=== PATIENT | female | born 1955 | race Caucasian/White ===

== ENCOUNTER 2017-11-27 07:21 | Emergency (ER) | payer SELFPAY ==
[2017-11-27 07:33] VITALS: BP 135/69; PULSE 85; RESP 18; TEMP 36.4; O2SAT 100; BMI 26.2
--- NOTE | 2017-11-27 07:38 | ED_ITS ---
HPI - Wound/Laceration General Chief Complaint: Wound/Laceration Stated Complaint: CUT LEFT HAND BLEEDING Time Seen by Provider: 11/27/17 07:22 Source: patient Mode of arrival: ambulatory Limitations: no limitations History of Present Illness HPI narrative: 62-year-old female with a history of hepatitis C presents with left hand laceration occurring just prior to arrival after she cut herself while washing dishes with a piece of broken glass. No suspected foreign body. Denies numbness or weakness of the extremity. Related Data Home Medications Medication Instructions Recorded Confirmed ASPIRIN (#ASPIR 81) 81 mg PO Q DAY #0 12/15/11 11/27/17 HOMEOPATHIC SUBSTANCE (MILK 1 cap PO Q DAY #0 12/15/11 THISTLE) VITAMIN D (Vitamin D3) 1,000 unit PO QDAY #0 01/07/12 VITAMIN B COMPLEX ([id number]) 1 cap PO Q DAY #0 03/08/12 Previous Rx's Medication Instructions Recorded trazodone 50 mg PO HS #90 tab 07/31/16 lisinopril 20 mg PO QDAY #30 tab 02/19/17 Allergies Allergy/AdvReac Type Severity Reaction Status Date / Time Penicillins [PENICILLINS] Allergy Intermediate RASH Verified 11/27/17 07:38 codeine [CODEINE] Allergy Mild ITCHY Verified 11/27/17 07:38 erythromycin base Allergy Mild Verified 11/27/17 07:38 [From ERYTHROCIN] latex [LATEX] Allergy Mild RED SULTANA, Verified 11/27/17 07:38 PAINFUL Sulfa (Sulfonamide Allergy Mild Verified 11/27/17 07:38 Antibiotics) [SULFA (SULFONAMIDE ANTIBIOTICS)] Review of Systems Review of Systems Denies numbness, weakness, or significant pain All systems reviewed & are unremarkable except as noted in HPI and below PFSH Surgical History History of angioplasty History of angioplasty Status post rhinoplasty Status post tonsillectomy and adenoidectomy Status post tubal ligation Family History Brother Age: 69 Fam hx-ischem heart disease Diabetes mellitus Heart disease Brother Age: 60 Diabetes mellitus Heart disease Hepatitis C Father Fam hx-ischem heart disease Family history of prostate cancer Cancer Diabetes mellitus Heart disease Hypertension High cholesterol Mother Fam hx-ischem heart disease Family history of lymphoma Cancer Heart disease High cholesterol Grandmother Cancer Social History Smoking Status: Former smoker Exam Initial Vital Signs Initial Vital Signs: Vital Signs Temperature 97.6 F 11/27/17 07:33 Pulse Rate 85 11/27/17 07:33 Respiratory Rate 18 11/27/17 07:33 Blood Pressure 135/69 H 11/27/17 07:33 Pulse Oximetry 100 11/27/17 07:33 Const General: cooperative and well developed Nutritional Appearance: well nourished Orientation: alert, awake, oriented x3 and not confused [facility] Head: normocephalic and atraumatic Ears: external ears normal and TM's normal bilaterally Nose: external nose normal and No nasal discharge Face and sinus: sinuses nontender, face symmetric, no sinus tenderness and No dry mucous membranes Mouth: oral mucosae normal and moist mucous membranes Teeth and gingiva: dentition normal Throat: tonsils normal and uvula midline Eyes General: appearance normal, both eyes and all related structures Eyelids: eyelids normal Conjunctivae: conjunctivae normal Sclera: sclerae normal Pupils: PERRL EOM: EOM intact bilaterally Neck Neck: normal visual inspection, trachea midline, No lymphadenopathy, No midline deformity and No JVD Lymphatic: No lymphedema Chest Chest: normal inspection of the chest Resp Effort & Inspection: normal respiratory effort, able to speak in complete sentences, no respiratory distress and no use of accessory muscles Auscultation: clear to auscultation bilaterally, no rales, no rhonchi and no wheezes Cardio Rate: regular rate Rhythm: regular rhythm Heart Sounds: no click, no gallops, no murmurs and no rubs Pulses: normal peripheral pulses GI Inspection: non-distended Palpation: soft, no hepatosplenomegaly, No guarding, No pulsatile mass and No tender Auscultation: normal bowel sounds Back/Spine/Pelvis Back: No CVA tenderness Cervical Spine: cervical ROM normal and No pain with cervical ROM Thoracic/Lumbar Spine: thoracic and lumbar spine normal to inspection Skin General: no rashes or lesions noted, No jaundice and No petechiae Neuro General: alert, oriented x3, gait normal and no focal motor deficits Cranial Nerves: CN's II-XI intact bilaterally Speech: speech normal Motor: strength 5/5 throughout Sensory Exam: no sensory deficits noted Extrem General: full ROM, no clubbing, cyanosis or edema, no pedal edema and no calf tenderness Left upper extremity: hand Psych Appearance: well kempt Mental Status: mental status grossly normal Attitude: cooperative Thought Content: normal and suicidality Judgment: judgment good Procedures Joint Aspiration/Injection Laceration 1: Site: hand Side (If applicable): left Size (cm): 2.5 Description: flap Depth: simple, single layer Local Anesthetic: lidocaine 1% and with epi Amount of anesthesia used (mL): 1 Pre-repair: wound explored, irrigated extensively and deep structures intact Skin layer closed with: nylon Size (cm): 5-0 Number of sutures: 8 Technique: running Course Orders Ordered: Discontinued Medications Diphtheria/Tetanus/Acell Pertussis (Adacel) 0.5 ml IM .ONCE ONE Stop: 11/27/17 07:43 Vital Signs - 8 hr 11/27/17 07:33 Temperature 97.6 F Pulse Rate 85 Respiratory Rate 18 Blood Pressure 135/69 H Pulse Oximetry 100 MDM - Wound/Laceration Differential Diagnosis Differential diagnosis: Likely laceration and avulsion of skin Medical Records Attestation: I reviewed the patient's medical records. Discharge Plan Departure Patient Disposition: Home, Self-Care Clinical Impression: Hand laceration Instructions: DI for Laceration Repair Activity Restrictions/Additional Instructions: Thank you for trusting is with your care today. Laceration was repaired with 8 running sutures. Please return in 10-14 days for suture removal. Return sooner if you developed drainage, redness, or increasing pain from the incision. Prescriptions: No Action ASPIRIN (#ASPIR 81) 81 mg PO Q DAY Qty: 0 RF: 0 HOMEOPATHIC SUBSTANCE (MILK THISTLE) 1 cap PO Q DAY Qty: 0 RF: 0 VITAMIN D (Vitamin D3) 1,000 unit PO QDAY Qty: 0 RF: 0 VITAMIN B COMPLEX ([id number]) 1 cap PO Q DAY Qty: 0 RF: 0 trazodone 50 MG tablet 50 mg PO HS Qty: 90 RF: 0 lisinopril 20 MG tablet 20 mg PO QDAY Qty: 30 RF: 0
[2017-11-27] MEDS: TET,DIPH,PERTUSS(ACELL),VAC/PF 0.5 ML SYRINGE IM (07:43)
== END 2017-11-27 08:12 | disposition home or self-care (01) ==
PROVIDERS: Emergency Provider Emergency Medicine; Family Provider Internal Medicine; PCP Internal Medicine
DX: S61.412A Laceration without foreign body of left hand, initial encounter (principal); W25.XXXA Contact with sharp glass, initial encounter
CPT/HCPCS: 12001; 12002; 90471; 99283; 90715

== ENCOUNTER 2017-12-08 06:48 | Emergency (ER) | payer SELFPAY ==
[2017-12-08 06:55] VITALS: BP 124/72; PULSE 70; RESP 16; TEMP 36.1; O2SAT 97; BMI 26.2
--- NOTE | 2017-12-08 07:21 | ED_ITS ---
HPI - Wound/Laceration General Chief Complaint: Wound/Laceration Stated Complaint: STICHES REMOVAL Time Seen by Provider: 12/08/17 06:56 Source: patient Mode of arrival: ambulatory Limitations: no limitations History of Present Illness HPI narrative: Patient is a 62-year-old female here for suture removal and wound check. No erythema no gross pus healing nicely. She has had a on glass while washing dishes on 11/27/2017 Related Data Home Medications Medication Instructions Recorded Confirmed ASPIRIN (#ASPIR 81) 81 mg PO Q DAY #0 12/15/11 11/27/17 HOMEOPATHIC SUBSTANCE (MILK 1 cap PO Q DAY #0 12/15/11 THISTLE) VITAMIN D (Vitamin D3) 1,000 unit PO QDAY #0 01/07/12 VITAMIN B COMPLEX ([id number]) 1 cap PO Q DAY #0 03/08/12 Previous Rx's Medication Instructions Recorded trazodone 50 mg PO HS #90 tab 07/31/16 lisinopril 20 mg PO QDAY #30 tab 02/19/17 Allergies Allergy/AdvReac Type Severity Reaction Status Date / Time Penicillins [PENICILLINS] Allergy Intermediate RASH Verified 11/27/17 07:38 codeine [CODEINE] Allergy Mild ITCHY Verified 11/27/17 07:38 erythromycin base Allergy Mild Verified 11/27/17 07:38 [From ERYTHROCIN] latex [LATEX] Allergy Mild RED SULTANA, Verified 11/27/17 07:38 PAINFUL Sulfa (Sulfonamide Allergy Mild Verified 11/27/17 07:38 Antibiotics) [SULFA (SULFONAMIDE ANTIBIOTICS)] Review of Systems Review of Systems GENERAL: Denies chills,fever HEENT: Denies throat pain RESPIRATORY: Denies dyspnea, cough, wheezing CARDIOVASCULAR: Denies chest pain, palpitations GASTROINTESTINAL: Denies nausea, vomiting MUSCULOSKELETAL: Denies extremity pain, injury SKIN: See HPI NEUROLOGIC: Denies weakness, dizziness, headache, numbness 8 point review of systems is negative except for those stated above and HPI All systems reviewed & are unremarkable except as noted in HPI and below PFSH Surgical History History of angioplasty History of angioplasty Status post rhinoplasty Status post tonsillectomy and adenoidectomy Status post tubal ligation Family History Brother Age: 69 [facility] hx-ischem heart disease Diabetes mellitus Heart disease Brother Age: 60 Diabetes mellitus Heart disease Hepatitis C Father [facility] hx-ischem heart disease Family history of prostate cancer Cancer Diabetes mellitus Heart disease Hypertension High cholesterol Mother [facility] hx-ischem heart disease Family history of lymphoma Cancer Heart disease High cholesterol Grandmother Cancer Social History Smoking Status: Former smoker Exam Narrative Exam Narrative: GENERAL: Well-appearing, well-nourished and in no acute distress. CARDIOVASCULAR: peripheral pulses in tact, cap refill <2 sec RESPIRATORY: No respiratory distress, speaks in full sentences without difficulty EXTREMITIES: Normal range of motion, no clubbing or edema. Neurovascularly intact NEUROLOGICAL: Cranial nerves II through XII grossly intact. Normal gait and speech. SKIN: Left hand skin alignment intact no erythema no gross pus Initial Vital Signs Initial Vital Signs: Vital Signs Temperature 97.0 F L 12/08/17 06:55 Pulse Rate 70 12/08/17 06:55 Respiratory Rate 16 12/08/17 06:55 Blood Pressure 124/72 H 12/08/17 06:55 Pulse Oximetry 97 12/08/17 06:55 Course Vital Signs - 8 hr 12/08/17 06:55 Temperature 97.0 F L Pulse Rate 70 Respiratory Rate 16 Blood Pressure 124/72 H Pulse Oximetry 97 Discharge Plan Departure Patient Disposition: Home, Self-Care Clinical Impression: Visit for suture removal Instructions: DI for Suture Removal Activity Restrictions/Additional Instructions: *You have been diagnosed with suture removed *What to do: Continue to keep clean and dry apply Neosporin 1-2 times daily *Take medications as directed *Follow up with your primary care provider in 2-3 days *Return to ER if you should have any new, worsening or concerning symptoms Prescriptions: No Action ASPIRIN (#ASPIR 81) 81 mg PO Q DAY Qty: 0 RF: 0 HOMEOPATHIC SUBSTANCE (MILK THISTLE) 1 cap PO Q DAY Qty: 0 RF: 0 VITAMIN D (Vitamin D3) 1,000 unit PO QDAY Qty: 0 RF: 0 VITAMIN B COMPLEX ([id number]) 1 cap PO Q DAY Qty: 0 RF: 0 trazodone 50 MG tablet 50 mg PO HS Qty: 90 RF: 0 lisinopril 20 MG tablet 20 mg PO QDAY Qty: 30 RF: 0 Referrals: Honey Richardson ND [Primary Care Provider] -
== END 2017-12-08 07:29 | disposition home or self-care (01) ==
PROVIDERS: Emergency Provider Emergency Medicine; Family Provider Naturopath; PCP Naturopath
DX: Z48.02 Encounter for removal of sutures (principal)
CPT/HCPCS: 99283

== ENCOUNTER → 2018-03-12 11:29 | Outpatient (CLI) | payer OTHER, MEDICAID, SELFPAY ==
[2018-03-12 12:42] LABS: BUN Creatinine Ratio 18.3 (6-22); Blood Urea Nitrogen 11 mg/dL (7-17); Estimated Glomerular Filt Rate > 60.0 mL/min (>60)
== END ==
PROVIDERS: PCP Internal Medicine; Visit Provider Internal Medicine
DX: Z01.812 Encounter for preprocedural laboratory examination (principal)
CPT/HCPCS: 36415; 82565; 84520

== ENCOUNTER → 2018-03-16 07:09 | Outpatient (CLI) | payer OTHER, MEDICAID, SELFPAY ==
--- NOTE | 2018-03-16 07:23 | DI.CT.S_ITS ---
PROCEDURE: CT ABDOMEN WO/W CON INDICATIONS: Hepatocellular carcinoma post radiofrequency liver ablation TECHNIQUE: 4 phase scanning was performed. Non-contrast 5 mm axial sections acquired from the diaphragm to the iliac crests. Following the administration of intravenous contrast, 5 mm thick arterial-phase, portal venous-phase, and 5-minute delayed phase images were acquired through the liver. 5 mm thick coronal and sagittal reformats were performed. For radiation dose reduction, the following was used: automated exposure control, adjustment of mA and/or kV according to patient size. COMPARISON: [facility], , ABDOMEN COMPLETE, 10/04/2013, 7:22. FINDINGS: Image quality: Excellent. Lung bases: There is mild atelectasis or scarring in the lung bases. Heart size is normal. Liver: There is a nodular cirrhotic liver demonstrated. Within the posterior aspect of the right hepatic lobe primarily involving segment 7, there is a loculated peripheral subcapsular nonenhancing fluid collection measuring approximately 4.7 x 2.8 cm in transverse dimension. There is an adjacent hypervascular enhancing mass demonstrated along the medial margin of the collection measuring approximately 3.6 x 1.9 cm in transverse dimension and 2.7 cm in craniocaudal dimension. This demonstrates washout on the portal venous and delayed phases. Findings are consistent with residual or recurrent tumor. There is adjacent vasculature shunting posteriorly in segment 7 consistent with posttreatment changes. Within segment 6, there is a hypoattenuating lesion with internal foci of hypervascular enhancement. There is apparent washout on delayed imaging measuring up to approximately 2.2 x 2.0 cm. Findings likely compatible with another focus of hepatocellular carcinoma. Elsewhere in the liver, there are scattered small hypervascular enhancing foci demonstrated in the right and left lobes including a 1 cm lesion in segment 4A on series 3 image 9, a 1.2 cm lesion in segment 8 on image 7, a 1 cm lesion in segment 5 on image 18, and 2 small lesions measuring up to 0.6 cm in segments 5 and 6 on image 27. There is no definite associated washout on delayed images. There is a small metallic foreign body within the right hepatic lobe which may represent sequela of prior embolization. Other solid organs: Gallbladder appears within normal limits without calcified gallstones. Biliary system is non dilated. Pancreas is normal in morphology. Spleen is normal in size and enhancement. No adrenal nodules. There are calcifications within the right adrenal gland consistent with sequela of prior trauma or infection. Kidneys demonstrate hydronephrosis. Nodes and vessels: No retroperitoneal or mesenteric adenopathy by size criteria. Aorta and inferior vena cava are normal in size. Bowel and peritoneum: Visualized bowel loops are normal in caliber. No free fluid or air. Bones: No suspicious bony lesions. No vertebral body compression fractures. Miscellaneous: No ventral hernias. IMPRESSION: 1. Fluid collection in the posterior right hepatic lobe in segment 7 consistent with posttreatment changes from reported prior RFA. An adjacent hypervascular enhancing mass with washout is demonstrated consistent with residual or recurrent hepatocellular carcinoma. 2. An additional mass in segment 6 demonstrating areas of washout with internal foci of hypervascular enhancement is also compatible with hepatocellular carcinoma. 3. Multiple additional small hypervascular foci in the liver without definite associated washout are nonspecific and may represent developing hepatocellular carcinoma versus dysplastic or regenerative nodules. Recommend attention on followup. Comparison with prior outside studies would be helpful. An addendum may be performed if prior images are made available for comparison. Dictated by: Vasquez Ozuna M.D. on 03/16/2018 at 10:44 Approved by: Vasquez Ozuna M.D. on 03/16/2018 at 12:09
== END ==
PROVIDERS: Family Provider Naturopath; PCP Internal Medicine; Visit Provider Internal Medicine
DX: C22.0 Liver cell carcinoma (principal)
CPT/HCPCS: 74170; Q9967

== ENCOUNTER → 2018-04-02 10:57 | Outpatient (CLI) | payer OTHER, MEDICAID, SELFPAY ==
[2018-04-02 11:27] LABS: Add Manual Diff / Slide Review NO; Basophils Percent Auto 1.1 % (0-2); Eosinophils Percent Auto 2.5 % (2-4); Hematocrit 43.2 % (36-46); Hemoglobin 14.8 g/dL (12.0-16.0); Lymphocytes Percent Auto 37.4 % (25-40); Mean Corpuscular HGB Conc 34.3 % (30-36); Mean Corpuscular Hemoglobin 32.5 PG (26-34); Mean Corpuscular Volume 94.8 fL (80-100); Monocytes Percent Auto 9.9 % (3-14); Neutrophils Absolute Auto 4400 /uL (3000-5900); Neutrophils Percent Auto 49.1 % (50-75); Platelet Count 211 X10^3/uL (150-400); Red Blood Cell Count 4.56 X10^6/uL (4.0-5.2); Red Cell Distribution Width 14.5 % (11.6-14.8)
[2018-04-02 12:07] LABS: Alanine Aminotransferase 246 IU/L (9-52); Alkaline Phosphatase 85 U/L (38-126); Aspartate Aminotransferase 389 IU/L (14-36); BUN Creatinine Ratio 23.3 (6-22); Bilirubin Total 0.8 mg/dL (0.2-1.3); Blood Urea Nitrogen 14 mg/dL (7-17); Calcium 9.2 mg/dL (8.4-10.2); Carbon Dioxide 29 mmol/L (22-32); Chloride 105 mmol/L (98-107); Estimated Glomerular Filt Rate > 60.0 mL/min (>60); Glucose 98 mg/dL (80-110); HEMOLYSIS < 15 (0-50); Potassium 4.1 mmol/L (3.4-5.1); Sodium 145 mmol/L (137-145)
[2018-04-02 12:36] LABS: Prothrombin Time 10.8 SECONDS (10.1-12.7)
[2018-04-03 14:32] LABS: Alpha Fetoprotein 537.3 ng/mL (< 6.1)
== END ==
PROVIDERS: Family Provider Naturopath; PCP Internal Medicine; Visit Provider Internal Medicine
DX: B18.2 Chronic viral hepatitis C (principal); C22.0 Liver cell carcinoma; K74.60 Unspecified cirrhosis of liver
CPT/HCPCS: 36415; 80053; 82105; 85025; 85610

== ENCOUNTER → 2018-05-11 07:56 | Outpatient (CLI) | payer OTHER, MEDICAID, SELFPAY ==
--- NOTE | 2018-05-11 08:32 | DI.CT.S_ITS ---
PROCEDURE: CT CHEST ABDOMEN W CON INDICATIONS: liver cancer TECHNIQUE: After the administration of oral contrast and intravenous contrast, 5 mm thick sections acquired from the lung apices to the iliac crests. 5 mm coronal and sagittal reformats were performed, with additional 7 mm coronal MIP reformats through the lungs. For radiation dose reduction, the following was used: automated exposure control, adjustment of mA and/or kV according to patient size. COMPARISON: [facility], CT, CT ABDOMEN WO/W CON, 03/16/2018, 7:17. FINDINGS: Image quality: Excellent. CHEST: Lungs and pleura: No acute consolidation. No pleural effusions or pneumothorax. Central and peripheral airways are patent and normal in caliber. Mediastinum: Heart size is normal. Coronary artery calcifications are present. No pericardial effusion. No mediastinal or hilar adenopathy by size criteria. Thoracic aorta and central pulmonary arteries are normal in size. Esophagus is normal in caliber. No hiatal hernia. Chest wall: No axillary or supraclavicular adenopathy by size criteria. Thyroid gland demonstrates a hypodense 5 mm nodule seen on image 6 series 2 in the right lobe. This could be further evaluated with ultrasound as clinically warranted ABDOMEN: Solid organs: Hypodense region in the right hepatic lobe presumably posttreatment sequela as before. There is redemonstration of nodularity and suspected abnormal soft tissue along the medial margin. This appears unchanged since prior study. Additional areas of focal hypervascular enhancement seen in the dome example image 44 series 2 measuring 1.2 cm and image 43 series 2 also at the dome, corresponding to the prior abnormal foci of enhancement and washout seen on the dedicated liver CT dated 03/16/18. No definite interval change. Gallbladder distended otherwise unremarkable. Biliary system is non dilated. Pancreas enhances normally. Spleen is normal in size and enhancement. No adrenal nodules. Kidneys are normal in size and enhancement, without hydronephrosis. Peritoneum and bowel: Bowel loops demonstrate normal wall thickness and caliber. No free fluid or air. Nodes and vessels: No retroperitoneal or mesenteric adenopathy by size criteria. Aorta and inferior vena cava are normal in caliber. Aortic stent graft noted. Bones: No suspicious bony lesions. No vertebral body compression fractures. Miscellaneous: No ventral hernias. IMPRESSION: Overall, accounting for differences in examination protocol, no definite interval change since 03/16/18. Multiple small areas of hypervascular enhancement seen in the dome of the liver, as well as presumed posttreatment sequela in the right lobe. These areas appear unchanged. Shotty retroperitoneal lymph nodes appear unchanged without definite pathologic enlargement. Hyperdense 5 mm nodule in the right lobe of the thyroid which could be further evaluated with ultrasound as clinically warranted. Dictated by: Eric Mcgovern M.D. on 05/11/2018 at 9:46 Approved by: Eric Mcgovern M.D. on 05/11/2018 at 10:00
== END ==
PROVIDERS: PCP Internal Medicine; Visit Provider Internal Medicine
DX: C22.0 Liver cell carcinoma (principal); E04.1 Nontoxic single thyroid nodule
CPT/HCPCS: 71260; 74160

== ENCOUNTER → 2018-05-17 11:03 | Outpatient (CLI) | payer OTHER, MEDICAID, SELFPAY ==
--- NOTE | 2018-05-17 11:04 | DI.NM.S_ITS ---
PROCEDURE: NM BONE SCAN WHOLE BODY RADIOPHARMACEUTICAL: 14.7 mCi Tc-99m MDP IV. INDICATIONS: liver cancer TECHNIQUE: Delayed whole-body scintigrams were obtained approximately 3-4 hours after intravenous injection of radiotracer. Anterior and posterior views were acquired from vertex to feet. Additional left and right oblique views of the thorax were obtained. COMPARISON: , CT, HEAD WITHOUT CONTRAST, 04/26/2012, 11:50. FINDINGS: There is photopenia in the right frontal region. The comparison CT from 04/26/2012 demonstrates old fracture with postsurgical changes and a surgical plate. There is a small focus of increased uptake in the right maxilla. No lesions are identified in sternum, clavicles, scapulae, ribs, bony pelvis, and visualized shafts of the long bones. There is increased uptake in cervical, thoracic and lumbar spine with distribution indistinguishable from degenerative disc and facet disease; early metastasis to spine could be obscured by degenerative changes. There are foci of increased periarticular activity involving shoulders bilaterally, wrists bilaterally, hips bilaterally and knees bilaterally, compatible with degenerative/arthritic changes. There are 2 kidneys, normal in size and position. There is normal soft tissue uptake. IMPRESSION: 1. A small focus of increased uptake in the right maxilla, probably related to dental disease. Recommend clinical correlation and radiographic correlation if clinically indicated. 2. There is photopenia in the right frontal bone correlating with old fracture in postsurgical change. 3. Elsewhere no evidence for metastatic disease. Dictated by: Braulio Haley M.D. on 05/17/2018 at 17:33 Approved by: Braulio Haley M.D. on 05/17/2018 at 17:58
== END ==
PROVIDERS: Family Provider Internal Medicine; PCP Internal Medicine; Visit Provider Internal Medicine
DX: C22.0 Liver cell carcinoma (principal)
CPT/HCPCS: 78306; A9503

== ENCOUNTER 2018-07-01 09:22 | Emergency (ER) | payer OTHER, MEDICAID, SELFPAY ==
[2018-07-01 09:25] VITALS: BP 191/92; PULSE 87; RESP 15; O2SAT 98; BMI 26.9
--- NOTE | 2018-07-01 09:38 | DI.RAD.S_ITS ---
PROCEDURE: XR CHEST 1V INDICATIONS: chest pain TECHNIQUE: One view of the chest was acquired. COMPARISON: [facility], , CHEST 2 VIEW, 09/26/2014, 7:30. FINDINGS: Surgical changes and devices: None. Lungs and pleura: No pleural effusions or pneumothorax. Lungs are clear. Mediastinum: Mediastinal contours appear normal. Heart size is normal. Bones and chest wall: No suspicious bony lesions. Overlying soft tissues appear unremarkable. IMPRESSION: No acute pulmonary process. Dictated by: Meena Alvarez M.D. on 07/01/2018 at 10:01 Approved by: Meena Alvarez M.D. on 07/01/2018 at 10:03
[2018-07-01 09:49] LABS: Add Manual Diff / Slide Review NO; Basophils Percent Auto 0.2 % (0-2); Eosinophils Percent Auto 0.5 % (2-4); Hematocrit 44.4 % (36-46); Hemoglobin 15.1 g/dL (12.0-16.0); INR 0.9 (0.9-1.3); Lymphocytes Percent Auto 23.8 % (25-40); Mean Corpuscular HGB Conc 34.1 % (30-36); Mean Corpuscular Hemoglobin 31.6 PG (26-34); Mean Corpuscular Volume 92.5 fL (80-100); Monocytes Percent Auto 9.8 % (3-14); Neutrophils Absolute Auto 7400 /uL (1500-7000); Neutrophils Percent Auto 65.7 % (50-75); Platelet Count 222 X10^3/uL (150-400); Prothrombin Time 10.7 SECONDS (10.1-12.7); Red Cell Distribution Width 13.5 % (11.6-14.8); White Blood Cell Count 11.3 X10^3/uL (4.5-11.0)
[2018-07-01 09:52] LABS: PTT Partial Thromboplastin Tim 36 SECONDS (26.4-36.2)
[2018-07-01 09:55] LABS: Alanine Aminotransferase 192 IU/L (9-52); Albumin 4.2 g/dL (3.5-5.0); Alkaline Phosphatase 96 U/L (38-126); Aspartate Aminotransferase 280 IU/L (14-36); BUN Creatinine Ratio 16.7 (6-22); Bilirubin Total 1.4 mg/dL (0.2-1.3); Blood Urea Nitrogen 10 mg/dL (7-17); Calcium 9.6 mg/dL (8.4-10.2); Carbon Dioxide 21 mmol/L (22-32); Chloride 107 mmol/L (98-107); Creatine Kinase 41 U/L (30-135); Estimated Glomerular Filt Rate > 60.0 mL/min (>60); Globulin 4.4 g/dL (1.7-4.1); Glucose 120 mg/dL (80-110); HEMOLYSIS < 15 (0-50); Lipase 230 U/L (23-300); Potassium 4.3 mmol/L (3.4-5.1); Sodium 141 mmol/L (137-145); Total Protein 8.6 g/dL (6.3-8.2)
[2018-07-01 10:00] VITALS: BP 176/68; PULSE 69; RESP 21; O2SAT 98
[2018-07-01 10:30] VITALS: BP 170/70; PULSE 63; RESP 24; O2SAT 97
--- NOTE | 2018-07-01 11:48 | ED_ITS ---
HPI - Chest Pain General Chief Complaint: Hypertension Stated Complaint: high blood pressure Time Seen by Provider: 07/01/18 10:48 Source: patient Mode of arrival: ambulatory Limitations: no limitations History of Present Illness HPI narrative: This is 62-year-old female comes to the emergency department with complaint of hypertension. She states her systolic has been about 200, she has been having consistently 190s to 180s for her systolic today as well as 80s to 90s for her diastolic today. She had a femoral catheterization yesterday with mapping for a microwave ablation of tumor and masses in her liver. She contacted her doctor today and they felt that this was not causing any of her hypertension. She states she did not receive any other medications recently. She normally takes lisinopril 20 mg for hypertension. She has been quite stressed and anxious. 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 She has also had a stent placed in her abdomen/aorta for arterial disease to allow blood to flow through she has known cancer and is following with Oncology. She has had some chest pain and right-sided abdominal pain although it is improved from yesterday. She states that always seems to happen when she has these evaluations. She also has felt a little bit short of breath which he states is a little bit new but has been going on for a while., patient denies any brain new vision changes. She has had some nausea but states this is chronic. She is not having any vomiting. She is not having any major new GI symptoms. She denies any fevers. Related Data Home Medications Medication Instructions Recorded Confirmed ASPIRIN (#ASPIR 81) 81 mg PO Q DAY #0 12/15/11 05/13/18 HOMEOPATHIC SUBSTANCE (MILK 1 cap PO Q DAY #0 12/15/11 03/26/18 THISTLE) VITAMIN D (Vitamin D3) 1,000 unit PO QDAY #0 01/07/12 03/26/18 VITAMIN B COMPLEX (M-[id number]-19) 1 cap PO Q DAY #0 03/08/12 03/26/18 Previous Rx's Medication Instructions Recorded lisinopril 20 mg PO QDAY #30 tab 02/19/17 Disabled Parking #1 [id number] 04/29/18 Allergies Allergy/AdvReac Type Severity Reaction Status Date / Time Penicillins [PENICILLINS] Allergy Intermediate RASH Verified 07/01/18 09:25 codeine [CODEINE] Allergy Mild ITCHY Verified 07/01/18 09:25 erythromycin base Allergy Mild Verified 07/01/18 09:25 [From ERYTHROCIN] latex [LATEX] Allergy Mild RED SULTANA, Verified 07/01/18 09:25 PAINFUL Sulfa (Sulfonamide Allergy Mild Verified 07/01/18 09:25 Antibiotics) [SULFA (SULFONAMIDE ANTIBIOTICS)] doxycycline AdvReac Intermediate Vomiting Verified 07/01/18 09:25 Review of Systems Review of Systems All systems reviewed & are unremarkable except as noted in HPI and below Constitutional Denies chills, Denies fever(s), Denies lethargy and Denies weakness Cardiovascular Reports chest pain, Denies diaphoresis, Denies irregular heart rhythm, Denies leg edema, Denies lightheadedness, Denies radiating jaw, neck or arm pain, Denies palpitations, Reports dyspnea, Denies dyspnea on exertion and Denies orthopnea Respiratory Denies change in phlegm color, Denies chest congestion, Denies cough, Reports dyspnea, Denies dyspnea on exertion and Denies wheezing Gastrointestinal Gastrointestinal: Reports abdominal pain (Resolved), Denies melena, Denies hematochezia, Denies change in bowel habits, Denies diarrhea, Denies nausea and Denies vomiting Genitourinary Denies hematuria and Denies dysuria Integumentary/Breasts Denies unusual bruising Neurologic Denies focal weakness, Denies paresthesias and Denies weakness Endocrine Denies palpitations Allergic/Immunologic Denies wheezing PFSH Medical History Hepatocellular carcinoma (Chronic) Essential hypertension (Chronic 09/01/13) Mixed hyperlipidemia (Chronic 10/02/15) H/O migraine (Chronic) Chronic hepatitis C virus infection (Chronic 09/16/11) History of subarachnoid hemorrhage (Inactive 09/16/11) Anemia (Chronic) Anxiety (Chronic) Asthma (Chronic) Chronic cough (Chronic) Chronic headaches (Chronic) Cirrhosis (Chronic 2000) Depression (Chronic) Hayfever (Chronic) Hemorrhoids (Chronic) Hepatitis C (Chronic) History of recurrent ear infection (Chronic) Hypertension (Chronic) Liver disease (Chronic) Ocular migraine (Chronic) PTSD (post-traumatic stress disorder) (Chronic) Peripheral vascular disease (Chronic) Recurrent sinusitis (Chronic) Substance abuse (Chronic) Urinary incontinence (Chronic) Vertigo (Chronic) Aneurysm (Resolved 2011) Chicken pox (Resolved) Genital warts (Resolved) History of heavy periods (Resolved) Measles (Resolved) Mumps (Resolved) Painful menstrual periods (Resolved) SAH (subarachnoid hemorrhage) (Resolved 2011) Surgical History Anesthesia (Resolved) History of angioplasty (Resolved 2010) History of angioplasty (Resolved 2011) History of brain surgery (Resolved 2011) History of nasal septoplasty (Resolved ~1988) History of oral surgery (Resolved 1981) Status post rhinoplasty (Resolved) Status post tonsillectomy and adenoidectomy (Resolved) Status post tubal ligation (Resolved 1983) Social History Smoking Status: Former smoker Exam Narrative Exam Narrative: GENERAL: Alert and oriented x three, well-nourished, well- appearing female in mild distress. HEENT: Head normocephalic, atraumatic, EOMI, pupils reactive, face symmetric, moist mucous membranes, no facial droop. Normal speech. NECK: Supple, full range of motion CARDIOVASCULAR: Regular rate and rhythm without murmurs, rubs or gallops. RESPIRATORY: Breath sounds equal bilaterally, no wheezes rales or rhonchi. ABDOMEN: Soft, nontender. Normoactive bowel sounds all 4 quadrants. No guarding or rebound, rigidity, no mass : No CVA tenderness EXTREMITIES: Normal range of motion, no clubbing or edema. Neurovascularly intact. Patient has a scabbed over puncture wound with very minimal bruising just at the site, there is no tenderness, no erythema. There is no hematoma with palpation NEUROLOGICAL: Cranial nerves II through XII grossly intact. Moving all extremities. Full range of motion. SKIN: Warm, dry, no petechiae, no rashes or lesions. Initial Vital Signs Initial Vital Signs: Vital Signs Pulse Rate 87 07/01/18 09:25 Respiratory Rate 15 07/01/18 09:25 Blood Pressure 191/92 H 07/01/18 09:25 Pulse Oximetry 98 07/01/18 09:25 Course Orders Ordered: ED Orders 07/01/18 11:58 CT head/brain wo con Stat Discontinued Medications Morphine Sulfate (Morphine) 2 mg IV NOW ONE Stop: 07/01/18 11:47 Last Admin: 07/01/18 12:03 Dose: 2 mg Ondansetron HCl (Zofran) 4 mg IV NOW ONE Stop: 07/01/18 12:06 Last Admin: 07/01/18 12:06 Dose: 4 mg Vital Signs - 8 hr 07/01/18 11:55 07/01/18 12:30 07/01/18 13:09 Pulse Rate 64 59 L 58 L Respiratory Rate 18 17 17 Blood Pressure [Left Arm] 174/64 H 174/47 H 173/63 H Pulse Oximetry 99 99 99 MDM - Chest Pain Lab Data Attestation: I reviewed the patient's lab results. Result diagrams: 07/01/18 09:30 07/01/18 09:30 Lab Results 07/01/18 07/01/18 07/01/18 Range/Units 09:30 09:30 09:30 WBC 11.3 H (4.5-11.0) X10^3/uL RBC 4.80 (4.0-5.2) X10^6/uL Hgb 15.1 (12.0-16.0) g/dL Hct 44.4 (36-46) % MCV 92.5 (80-100) fL MCH 31.6 (26-34) PG MCHC 34.1 (30-36) % RDW 13.5 (11.6-14.8) % Plt Count 222 (150-400) X10^3/uL Neut % (Auto) 65.7 (50-75) % Lymph % (Auto) 23.8 L (25-40) % Leake % (Auto) 9.8 (3-14) % Eos % (Auto) 0.5 L (2-4) % Baso % (Auto) 0.2 (0-2) % Neut # (Auto) 7400 H (5261-5517) /uL PT 10.7 (10.1-12.7) SECONDS INR 0.9 (0.9-1.3) APTT 36 (26.4-36.2) SECONDS Sodium 141 (137-145) mmol/L Potassium 4.3 (3.4-5.1) mmol/L Chloride 107 (98-107) mmol/L Carbon Dioxide 21 L (22-32) mmol/L BUN 10 (7-17) mg/dL Creatinine 0.60 (0.52-1.04) mg/dL Estimated GFR > 60.0 (>60) mL/min BUN/Creatinine Ratio 16.7 (6-22) Glucose 120 H (80-110) mg/dL Calcium 9.6 (8.4-10.2) mg/dL Total Bilirubin 1.4 H (0.2-1.3) mg/dL AST 280 H (14-36) IU/L ALT 192 H (9-52) IU/L Alkaline Phosphatase 96 (38-126) U/L Total Creatine Kinase 41 (30-135) U/L CK-MB (CK-2) TNP CK-MB (CK-2) Rel Index TNP Troponin I 0.030 (0.01-0.034) ng/mL B-Natriuretic Peptide 146 H (<100) Total Protein 8.6 H (6.3-8.2) g/dL Albumin 4.2 (3.5-5.0) g/dL Globulin 4.4 H (1.7-4.1) g/dL Albumin/Globulin Ratio 1.0 (1.0-2.8) Lipase 230 (23-300) U/L Urine Dip Bedside Urine Glucose Negative Bedside Urine Bilirubin - Negative Bedside Urine Ketone ++ 40 Urine Specific Ulman 1.015 Bedside Urine Occult Blood - Negative Bedside Urine pH 6.0 Bedside Urine Protein - Negative Bedside Urine Urobilinogen - Negative Bedside Urine Nitrite - Negative Bedside Urine Leukocytes - Negative Esterase Imaging Data CT scan - head: Radiologist's impression: [address] [address] [address] Scan Report Signed Patient: Katie Rucker MR#: [id number] : 1955 Acct:[id number] Age/Sex: 62 / F Date of Service: 07/01/18 Loc: ED Accession Number: [id number] Procedure: CT head/brain wo con Ordering Provider: Meche Portillo D.O. PROCEDURE: CT HEAD/BRAIN WO CON INDICATIONS: headache, hypertension, hx of MCA aneurysm with clip TECHNIQUE: Noncontrast 4.5 mm thick angled axial sections acquired from the foramen magnum to the vertex, with coronal and sagittal reformats. For radiation dose reduction, the following was used: automated exposure control, adjustment of mA and/or kV according to patient size. COMPARISON: [facility], CT, HEAD WITHOUT CONTRAST, 04/26/2012, 11:50. FINDINGS: Image quality: Diagnostic. CSF spaces: Basal cisterns are patent. No extra-axial fluid collections. Ventricles are normal in size and shape. Brain: No midline shift. No intracranial masses or hemorrhage. Bernal-white matter interface is normal. An aneurysm clip is again identified overlying the right temporal region on name expected location of the right middle cerebral artery which is unchanged. Subtle area of encephalomalacia involving anterior right frontal lobe there is identified an old probably present on the prior study. Skull and face: Calvarium and visualized facial bones are intact, without suspicious lesions. Postoperative changes related to a right frontotemporal craniotomy is evident. The bone flap is unchanged in alignment. Sinuses: Visualized sinuses and mastoids are clear. IMPRESSION: 1. No acute intracranial hemorrhage. 2. Postoperative changes of the brain related to right MCA aneurysm clipping. Dictated by: Dorian Mack M.D. on 07/01/2018 at 11:03 Approved by: Dorian Mack M.D. on 07/01/2018 at 11:05 Chest x-ray: Radiologist's impression: Katie Rucker - Patient Chart Chart Viewer Provider NotesNurse/Allied HealthMedicationsDiagnostics History & ProblemsAdministrativeOther Clinical ActivityFlowsheets Summary Diagnostics Subcategory View All Activity : All Time : All Subcategories Filter LABORATORY IMAGING MICROBIOLOGY PATHOLOGY OTHER DIAGNOSTICS BLOOD BANK TESTS DATE TYPE STATUS AUTHOR Hx 07/01/18 11:[address] Signed Dorian Mack View Report History 07/01/18 09:38 Chest X-Ray Signed Meena Alvarez View Report History 05/17/18 11:04 Bone Scan Nuclear Medicine Signed Carroll Haley View Report History 05/11/18 08:32 Chest/Abdomen CT Signed Eric Mcgovern View Report History 03/16/18 07:[address] Signed Vasquez Ozuna View Report History Katie Rucker 62, F?1955 REG ER, ED - Main ED: R04 149.86cm 60.6kg BSA: 1.55m? BMI: 27.0kg/m? Hypertension Acc# [id number] Historical Visits Home Meds Not Confirmed MEDICATIONS (INSTRUCTIONS)sort LAST TAKEN NF ? ASPIRIN (#ASPIR 81) (? 81 mg PO Q DAY #0) DME/MEDICAL SUPPLIES NF ? Disabled Parking NF ? HOMEOPATHIC SUBSTANCE (MILK THISTLE) (? 1 cap PO Q DAY #0) ? lisinopril (? 20 mg PO QDAY #30 tab) NF ? VITAMIN B COMPLEX (P-BCSVCUG-90) (? 1 cap PO Q DAY #0) NF ? VITAMIN D (Vitamin D3) (? 1,000 unit PO QDAY #0) NF - Not included in interaction checking Allergies Penicillins (PENICILLINS) RASH codeine (CODEINE) ITCHY erythromycin base (From ERYTHROCIN) latex (LATEX) RED SULTANA, PAINFUL Sulfa (Sulfonamide Antibiotics) (SULFA (SULFONAMIDE ANTIBIOTICS)) doxycycline Vomiting Problems ONSET Liver cirrhosis Hepatocellular carcinoma Essential hypertension 09/01/13 Mixed hyperlipidemia 10/02/15 H/O migraine Chronic hepatitis C virus infection 09/16/11 History of subarachnoid hemorrhage 09/16/11 Vital Signs Today 11:55 BP 174/64 H Pulse 64 Resp 18 O2 Sat 99 Delivery Room Air Diagnostics Reports Katie Rucker 62 F 1955 Allergy/Adv: Penicillins, codeine, erythromycin base, latex, Sulfa (Sulfonamide Antibiotics), doxycycline CLOSE Head CT (Signed) Dorian Mack - 07/01/18 Chest X-Ray (Signed) Meena Alvarez - 07/01/18 Bone Scan Nuclear Medicine (Signed) Carroll Haley - 05/17/18 Chest/Abdomen CT (Signed) Eric Mcgovern - 05/11/[address] (Signed) Vasquez Oznua - 03/16/18 Launch Image View Report History [address] [address] XRay Report Signed Patient: Katie Rucker MR#: [id number] : 1955 Acct:[id number] Age/Sex: 62 / F Date of Service: 07/01/18 Loc: ED Accession Number: [id number] Procedure: XR chest 1V Ordering Provider: Meche Portillo D.O. PROCEDURE: XR CHEST 1V INDICATIONS: chest pain TECHNIQUE: One view of the chest was acquired. COMPARISON: [facility], , CHEST 2 VIEW, 09/26/2014, 7:30. FINDINGS: Surgical changes and devices: None. Lungs and pleura: No pleural effusions or pneumothorax. Lungs are clear. Mediastinum: Mediastinal contours appear normal. Heart size is normal. Bones and chest wall: No suspicious bony lesions. Overlying soft tissues appear unremarkable. IMPRESSION: No acute pulmonary process. Dictated by: Meena Alvarez M.D. on 07/01/2018 at 10:01 Approved by: Meena Alvarez M.D. on 07/01/2018 at 10:[address] [address] XRay Report Signed Patient: Katie Rucker MR#: [id number] : 1955 Acct:[id number] Age/Sex: 62 / F Date of Service: 07/01/18 Loc: ED Accession Number: [id number] Procedure: XR chest 1V Ordering Provider: Meche Portillo D.O. PROCEDURE: XR CHEST 1V INDICATIONS: chest pain TECHNIQUE: One view of the chest was acquired. COMPARISON: [facility], , CHEST 2 VIEW, 09/26/2014, 7:30. FINDINGS: Surgical changes and devices: None. Lungs and pleura: No pleural effusions or pneumothorax. Lungs are clear. Mediastinum: Mediastinal contours appear normal. Heart size is normal. Bones and chest wall: No suspicious bony lesions. Overlying soft tissues appear unremarkable. IMPRESSION: No acute pulmonary process. Dictated by: Meena Alvarez M.D. on 07/01/2018 at 10:01 Approved by: Meena Alvarez M.D. on 07/01/2018 at 10:03 ECG Data Attestation: I personally reviewed and interpreted this ECG as follows: Interpretation: Sinus rhythm, ventricular rate of 67 with a P are interval of 140 to a QRS of 83 and QTC of 433. No ST elevation or depression appreciated. Suspect patient may have had aVL in 3 slipped. But no concerning changes. MDM Narrative Medical decision making narrative: I discussed with patient initially she felt that her headache not bad enough to warrant any imaging but not that it has been bothering her so we did do a head CT with her recent elevated blood pressures at home. This was negative, chest x-ray shows no acute changes lab work shows no major changes. Spoke with patient and plan for discharge home. Her pressures have improved here although still slightly elevated I do not feel she needs to have her medication changed just yet. She is to continue to monitor her blood pressure if need be she can return here if it is quite elevated or chat with her physician about increasing her lisinopril. Discharge Plan Departure Patient Disposition: Home Clinical Impression: Hypertension Discharge Date/Time: 07/01/18 13:26 Interventions: ED Discharge Assessment Last Done: 07/01/18 13:26 Instructions: DI for High Blood Pressure Activity Restrictions/Additional Instructions: Follow-up with Dr. Qiu regarding your blood pressure. Continue your home medications as prescribed. Return to the emergency department for sudden severe headaches, new vision changes, chest pain or shortness of breath, persistent vomiting or other new or concerning symptoms. Prescriptions: No Action ASPIRIN (#ASPIR 81) 81 mg PO Q DAY Qty: 0 RF: 0 HOMEOPATHIC SUBSTANCE (MILK THISTLE) 1 cap PO Q DAY Qty: 0 RF: 0 VITAMIN D (Vitamin D3) 1,000 unit PO QDAY Qty: 0 RF: 0 VITAMIN B COMPLEX (M-[id number]-53) 1 cap PO Q DAY Qty: 0 RF: 0 lisinopril 20 MG tablet 20 mg PO QDAY Qty: 30 RF: 0 Disabled Parking Qty: 1 RF: 0 Referrals: Ruddy Qiu MD [Primary Care Provider] -
[2018-07-01 11:55] VITALS: BP 174/64; PULSE 64; RESP 18; O2SAT 99
--- NOTE | 2018-07-01 11:57 | PC.NURSE ---
top of head pounding headache onset last night, with blurry visions, and nausea , no vomiting, took her bp medications, low dose aspirin, advil, vitamins, time buyer. denies chest pain at this time.
--- NOTE | 2018-07-01 11:58 | DI.CT.S_ITS ---
PROCEDURE: CT HEAD/BRAIN WO CON INDICATIONS: headache, hypertension, hx of MCA aneurysm with clip TECHNIQUE: Noncontrast 4.5 mm thick angled axial sections acquired from the foramen magnum to the vertex, with coronal and sagittal reformats. For radiation dose reduction, the following was used: automated exposure control, adjustment of mA and/or kV according to patient size. COMPARISON: [facility], CT, HEAD WITHOUT CONTRAST, 04/26/2012, 11:50. FINDINGS: Image quality: Diagnostic. CSF spaces: Basal cisterns are patent. No extra-axial fluid collections. Ventricles are normal in size and shape. Brain: No midline shift. No intracranial masses or hemorrhage. Bernal-white matter interface is normal. An aneurysm clip is again identified overlying the right temporal region on name expected location of the right middle cerebral artery which is unchanged. Subtle area of encephalomalacia involving anterior right frontal lobe there is identified an old probably present on the prior study. Skull and face: Calvarium and visualized facial bones are intact, without suspicious lesions. Postoperative changes related to a right frontotemporal craniotomy is evident. The bone flap is unchanged in alignment. Sinuses: Visualized sinuses and mastoids are clear. IMPRESSION: 1. No acute intracranial hemorrhage. 2. Postoperative changes of the brain related to right MCA aneurysm clipping. Dictated by: Dorian Mack M.D. on 07/01/2018 at 11:03 Approved by: Dorian Mack M.D. on 07/01/2018 at 11:05
[2018-07-01] MEDS: MORPHINE 2 MG/ML INJ IV (12:03)
[2018-07-01] MEDS: ONDANSETRON 4 MG/2 ML INJ IV (12:06)
[2018-07-01 12:30] VITALS: BP 174/47; PULSE 59; RESP 17; O2SAT 99
[2018-07-01 12:38] LABS: B Type Natriuretic Peptide 146 (<100)
[2018-07-01 13:09] VITALS: BP 173/63; PULSE 58; RESP 17; O2SAT 99
--- NOTE | 2018-07-01 13:10 | PC.NURSE ---
pt takes her routine meds at bedtime.
== END 2018-07-01 13:26 | disposition home or self-care (01) ==
PROVIDERS: Emergency Provider Emergency Medicine; PCP Internal Medicine
DX: I10 Essential (primary) hypertension (principal); R51 Headache
CPT/HCPCS: 36591; 70450; 71045; 80053; 81003; 82550; 83690; 83880; 84484; 85025; 85610; 85730; 93005; 96374; 96375; 99283; 99285; 99291; J2270; J2405

== ENCOUNTER → 2018-09-09 10:13 | Outpatient (CLI) | payer MEDICARE, OTHER, MEDICAID, SELFPAY | PROVIDERS: PCP Internal Medicine | DX: B19.20 Unspecified viral hepatitis C without hepatic coma (principal) | CPT/HCPCS: 36415; 87522; 87902 ==

== ENCOUNTER → 2018-09-27 08:21 | Outpatient (CLI) | payer MEDICARE, SELFPAY ==
--- NOTE | 2018-09-27 08:55 | DI.CT.S_ITS ---
PROCEDURE: CT SOFT TISSUE NECK W CON INDICATIONS: right jaw swelling TECHNIQUE: After the administration of intravenous contrast, 3.0 mm axial sections acquired from the sella to the aortic arch. Additional oblique axial 3.0 mm sections acquired through the pharynx. 3 mm thick coronal and sagittal reformats were generated. For radiation dose reduction, the following was used: automated exposure control. COMPARISON: None. FINDINGS: Image quality: Excellent. Lymph nodes: No enlarged lymph nodes seen throughout the neck. Vessels: Visualized vasculature appears patent. Neck spaces: The oropharynx, nasopharynx, and pharynx demonstrate no mucosal lesions. The vocal cords, false vocal cords, pyriform sinuses, epiglottis, vallecula, and tongue base all appear normal. There is a large 5.2 x 5.6 x 6.0 cm heterogeneously enhancing mass involving the right recruitment manager space. Lesion extends from the skull base to the inferior margin of the right mandible. There are erosive changes in the right mandible associated with the mass. Lesions having mass effect on the right parotid gland, right carotid artery, right parapharyngeal space and the oropharynx. Glands: The parotid and submandibular glands appear normal. Thyroid gland is normal. Miscellaneous: Visualized brain and orbits appear normal. Lung apices appear clear. Superficial soft tissues appear normal. Cerebral aneurysm clip noted right middle cerebral artery trifurcation. Bones: Postsurgical changes compatible prior right temporal craniotomy noted. Visualized sinuses and mastoids appear unremarkable. IMPRESSION: 1. 5.2 x 5.6 x 6.0 cm right recruitment manager space enhancing mass with associated osseous erosive changes in the right mandible. Findings highly suspicious for malignancy. Biopsy is warranted for definitive characterization. 2. 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 Dictated by: Deepika Patel MD, PhD on 09/27/2018 at 12:38 Approved by: Deepika Patel MD, PhD on 09/27/2018 at 12:44
== END ==
PROVIDERS: PCP Internal Medicine; Visit Provider Internal Medicine Hematology & Oncology
DX: C22.0 Liver cell carcinoma (principal); R22.0 Localized swelling, mass and lump, head
CPT/HCPCS: 70491; Q9967

== ENCOUNTER → 2018-11-16 15:46 | Outpatient (CLI) | payer MEDICARE, SELFPAY ==
[2018-11-16 16:06] LABS: Add Manual Diff / Slide Review NO; Basophils Absolute Auto 100 /uL (0-100); Basophils Percent Auto 0.7 % (0-2); Eosinophils Absolute Auto 100 /uL (0-450); Eosinophils Percent Auto 0.6 % (2-4); Hematocrit 39.5 % (36-46); Lymphocytes Absolute Auto 1200 /uL (1100-4500); Lymphocytes Percent Auto 11.1 % (25-40); Mean Corpuscular Hemoglobin 31.1 PG (26-34); Mean Corpuscular Volume 94.2 fL (80-100); Monocytes Absolute Auto 1000 /uL (0-900); Monocytes Percent Auto 9.5 % (3-14); Neutrophils Absolute Auto 8300 /uL (1500-7000); Neutrophils Percent Auto 78.1 % (50-75); Platelet Count 236 X10^3/uL (150-400); Red Blood Cell Count 4.19 X10^6/uL (4.0-5.2); Red Cell Distribution Width 13.8 % (11.6-14.8); White Blood Cell Count 10.6 X10^3/uL (4.5-11.0)
[2018-11-16 16:25] LABS: Alanine Aminotransferase 94 IU/L (9-52); Albumin 3.7 g/dL (3.5-5.0); Alkaline Phosphatase 90 U/L (38-126); Aspartate Aminotransferase 231 IU/L (14-36); Bilirubin Total 1.6 mg/dL (0.2-1.3); Blood Urea Nitrogen 32 mg/dL (7-17); Calcium 9.5 mg/dL (8.4-10.2); Carbon Dioxide 22 mmol/L (22-32); Chloride 100 mmol/L (98-107); Estimated Glomerular Filt Rate > 60.0 mL/min (>60); Globulin 3.6 g/dL (1.7-4.1); Glucose 94 mg/dL (80-110); HEMOLYSIS 18 (0-50); Potassium 4.5 mmol/L (3.4-5.1); Sodium 133 mmol/L (137-145); Total Protein 7.3 g/dL (6.3-8.2)
[2018-11-18 16:34] LABS: Alpha Fetoprotein 12970.3 ng/mL (< 6.1)
== END ==
PROVIDERS: Family Provider Internal Medicine; PCP Internal Medicine; Visit Provider Internal Medicine Hematology & Oncology
DX: C22.0 Liver cell carcinoma (principal)
CPT/HCPCS: 36415; 80053; 82105; 85025

== ENCOUNTER → 2018-12-01 10:00 | Oncology outpatient (ONC) | payer MEDICARE, OTHER, MEDICAID, SELFPAY ==
[2018-04-12 15:23] VITALS: BP 135/73; PULSE 70; RESP 16; TEMP 36.9; O2SAT 99
--- NOTE | 2018-04-12 16:21 | P.CONONC_ITS ---
History of Present Illness - Data of Consult Primary Care Provider: Ruddy Qiu MD - Consult Narrative Reason for consult: Hepatocellular carcinoma Narrative: Ms. Katie Rucker is a 62 year old female with extensive multiple medical problems most notable for hypertension, hepatitis C, hypertension, cirrhosis, peripheral artery disease, and intracranial aneurysm status post surgery. As far as hepatitis C is concerned, patient was diagnosed in 2000. Patient used to use intravenous drug in the 60s. That could be a potential source of her hepatitis C infection. After diagnosis of hepatitis C, patient has received treatment with interferon and ribavirin at [facility] in 2001, and was not successful. She has not been treated with anti viral medications for example Harvoni. In 2012 patient was found to have a liver nodule and she underwent CT-guided biopsy of a 1.5 cm liver nodule in the right lobe of the liver. The final pathology showed no evidence of malignancy but active hepatitis and cirrhosis. I believe during the follow-up visit in November of 2016 the ultrasound study revealed a 2 x 1.4 x 1.8 cm hypoechoic lesion in the anterior right liver, which was not present on ultrasound study of 2015. On May 19, 2017 patient underwent needle core biopsy of the liver lesion and the surgical pathology showed moderately differentiated hepatocellular carcinoma. According to Dr. Whittington's progress note, the AFP level was within the normal range at the time. After the diagnosis of hepatocellular carcinoma, patient underwent interventional radiofrequency ablative therapy in June of 2017. Patient recalled that the surgical procedure was quite dramatic. Patient was having lots of pain in the right upper abdomen as well as in the right shoulder. Eventually patient recovered from the procedure. Patient presents here today because she was not happy with the care at the [place] and would like to see a different opinion. She is complaining there is no follow-up and there is no CT scan ordered. According to Dr. Whittington note, patient received a $35,000 bill from [place] regarding the ablation. Patient also is trying to pay off other bills. He was seen by Dr. Ruddy Qiu recently. CT scan of the abdomen with and without contrast was performed on March 16, 2018. The CT scan showed fluid collection in the posterior right hepatic lobe in segment 7 consistent with post treatment changes from reported prior RFA. An enhancing adjacent hypervascular lesion with washout was noted consistent with residual or recurrent hepatocellular carcinoma. An additional mass in segment 6 demonstrating areas of washout with internal foci of hypervascular enhancement also thought to be consistent with hepatocellular carcinoma. Multiple additional small hypervascular foci in the liver without definite associated washout are thought to be nonspecific. cc: Dr. Ruddy Qiu MD, Tomasz Love MD Home Medications and Allergies Home Medications Medication Instructions Recorded Confirmed Type ASPIRIN (#ASPIR 81) 81 mg PO Q DAY #0 12/15/11 03/26/18 History HOMEOPATHIC SUBSTANCE (MILK 1 cap PO Q DAY #0 12/15/11 03/26/18 History THISTLE) VITAMIN D (Vitamin D3) 1,000 unit PO QDAY #0 01/07/12 03/26/18 History VITAMIN B COMPLEX ([id number]) 1 cap PO Q DAY #0 03/08/12 03/26/18 History lisinopril 20 mg PO QDAY #30 tab 02/19/17 03/26/18 Rx Allergies Allergy/AdvReac Type Severity Reaction Status Date / Time Penicillins [PENICILLINS] Allergy Intermediate RASH Verified 03/26/18 13:30 codeine [CODEINE] Allergy Mild ITCHY Verified 03/26/18 13:30 erythromycin base Allergy Mild Verified 03/26/18 13:30 [From ERYTHROCIN] latex [LATEX] Allergy Mild RED SULTANA, Verified 03/26/18 13:30 PAINFUL Sulfa (Sulfonamide Allergy Mild Verified 03/26/18 13:30 Antibiotics) [SULFA (SULFONAMIDE ANTIBIOTICS)] doxycycline AdvReac Intermediate Vomiting Unverified 03/26/18 13:30 Medical History - Medical, Surgical, Family History Medical History: Medical History (Last Updated 01/26/18 @ 16:13 by Ruddy Qiu MD) Hepatocellular carcinoma (Chronic) Essential hypertension (Chronic) Onset Date: 09/01/13 Mixed hyperlipidemia (Chronic) Onset Date: 10/02/15 H/O migraine (Chronic) Chronic hepatitis C virus infection (Chronic) Onset Date: 09/16/11 History of subarachnoid hemorrhage (Inactive) Onset Date: 09/16/11 Anemia Anxiety Asthma Chronic cough Chronic headaches Cirrhosis Onset Date: 2000 Depression Hayfever Hemorrhoids Hepatitis C History of recurrent ear infection Hypertension Liver disease Ocular migraine PTSD (post-traumatic stress disorder) Peripheral vascular disease Recurrent sinusitis Substance abuse Urinary incontinence Vertigo Aneurysm Onset Date: 2011 Chicken pox Genital warts History of heavy periods Measles Mumps Painful menstrual periods SAH (subarachnoid hemorrhage) Onset Date: 2011 Surgical History: Surgical History (Last Updated 01/25/18 @ 14:18 by Vidhi Cfofey) Anesthesia History of angioplasty Onset Date: 2010 History of angioplasty Onset Date: 2011 History of brain surgery Onset Date: 2011 History of nasal septoplasty Onset Date: History of oral surgery Onset Date: 1981 Status post rhinoplasty Status post tonsillectomy and adenoidectomy Status post tubal ligation Onset Date: 1983 Family History: Family History (Last Reviewed 12/08/17 @ 07:19 by Agnes Miguel DO) Brother Age: 69 Fam hx-ischem heart disease Diabetes mellitus Heart disease Brother Age: 60 Diabetes mellitus Heart disease Hepatitis C Kidney transplant status Father Fam hx-ischem heart disease Family history of prostate cancer Cancer Diabetes mellitus Heart disease Hypertension High cholesterol Mother Fam hx-ischem heart disease Family history of lymphoma Cancer Heart disease High cholesterol Grandmother Cancer Grandmother No problems noted. Grandfather Stroke Aneurysm - Social History Smoking Status: Former smoker Review of Systems - Patient Self-Reported Symptoms SR Constitution: Fatigue/Malaise SR eye issues: Vision changes SR ears, nose, mouth, throat issues: Ears ringing, Cough, Mouth sores SR respiratory issues: Cough, Shortness of breath SR Cardiovascular issues: Chest pain, discomfort, tightness, Shortness of breath with activity or lying flat, Dizzy/lightheaded SR Gastrointestinal issues: Poor or no appetite, Change in bowel pattern, Nausea , Abdominal pain, Heartburn SR Genitourinary issues: Frequent urination SR Musculoskeletal issues: Joint pain or swelling, Muscle weakness, Muscle pain or cramps, Back or neck pain, Cold hands or feet SR Neuro issues: Lightheaded/dizzy, Numbness or tingling, Difficulty balancing SR Endocrine issues: Cold intolerance, Heat intolerance All systems PM: reviewed and no additional remarkable complaints except as stated Exam Vital signs: Temp 98.4 F 04/12/18 15:23 Pulse 70 04/12/18 15:23 Resp 16 04/12/18 15:23 BP 135/73 04/12/18 15:23 Pulse Ox 99 04/12/18 15:23 Narrative: ECO Constitutional: Well developed, well nourished, not in any acute respiratory distress, average body habitus, well groomed, pleasant and cooperative. HEENT: Normocephalic atraumatic. Extraocular muscle movement intact. Pupils are round, equal and reactive to light and accommodations. Anicteric sclera. No hearing difficulty; Oral mucus membrane moist and without ulcers. Neck: Supple, symmetrical, and tracheal midline; No palpable thyromegaly and no palpable lymph nodes. Respiratory: No use of accessory muscles. Clear to auscultation, and no wheezes or rales or rubs. Cardiovascular: Regular rate and rhythm, S1 and S2 normal, no murmurs gallops or rubs. No JVD. No pitting edema of lower extremities. Abdomen: Soft, non-distended, bowel sounds normal, no palpable organomegaly, no hernia, no palpable masses. Mild tender over right upper abdomen. Lower extremities: No palpable pedal edema. Lymphatic: no palpable lymph nodes in the neck, axillae, or groins. Musculoskeletal: normal gait and station, no clubbing, no cyanosis, no pitting edema. Skin: no rashes, no ulcers, no petechiae Neurological: Awake and alert and oriented x3. CN II-XII grossly intact. No focal motor or sensory deficit. Psychiatric: Good judgment, good insight, normal affect, normal thought process , cooperative, no depression, no anxiety. Results - Labs Labs from March 12, 2018: BUN 11, creatinine 0.6 - Imaging Additional studies: Procedures Injection or infusion of other therapeutic or prophylactic substance (07/25/11) Assessment and Plan (1) Hepatocellular carcinoma Based on the available information availabe to me, patient seems to have a liver -confined hepatocellular carcinoma. The tumor burden probably is still modest at most. I talked with her that she should be evaluated by a tertiary specialty center for discussion of liver transplant versus surgical procedures. If she is deemed not candidate, patient should continue pursue localized therapeutic options including radioembolization etc. Patient said that she is not willing to go back to [place]. Therefore I will refer the patient to [facility] for further discussion and evaluation. I talked with the patient that I am happy to see her after she visits [facility]. I have tentatively scheduled to have her come back in about a month. (2) Chronic hepatitis C virus infection For hepatitis C, patient has not received antiviral therapy yet. I talked with her that it is considered curable in more than 98 99% of the time. I would highly recommend that patient be evaluated at [facility] and discuss the treatment options. (3) Liver cirrhosis At present, I did not see any clear evidence of splenomegaly, bleeding, or varicose veins of the distal esophagus. However patient will need to establish care with a manager of housekeeping for continued follow-up and management. Patient voiced understanding.
--- NOTE | 2018-05-13 11:26 | P.PNONC_ITS ---
PN -Subjective Interval history: Chief Complaint: Hepatocellular carcinoma History of Present Illness Ms. Katie Rucker is a 62 year old female with extensive multiple medical problems most notable for hypertension, hepatitis C, hypertension, cirrhosis, peripheral artery disease, and intracranial aneurysm status post surgery. As far as hepatitis C is concerned, patient was diagnosed in 2000. Patient used to use intravenous drug in the 60s. That could be a potential source of her hepatitis C infection. After diagnosis of hepatitis C, patient has received treatment with interferon and ribavirin at [facility] in 2001, and was not successful. She has not been treated with anti viral medications for example Harvoni. In 2012 patient was found to have a liver nodule and she underwent CT-guided biopsy of a 1.5 cm liver nodule in the right lobe of the liver. The final pathology showed no evidence of malignancy but active hepatitis and cirrhosis. I believe during the follow-up visit in November of 2016 the ultrasound study revealed a 2 x 1.4 x 1.8 cm hypoechoic lesion in the anterior right liver, which was not present on ultrasound study of 2015. On May 19, 2017 patient underwent needle core biopsy of the liver lesion and the surgical pathology showed moderately differentiated hepatocellular carcinoma. According to Dr. Whittington's progress note, the AFP level was within the normal range at the time. After the diagnosis of hepatocellular carcinoma, patient underwent interventional radiofrequency ablative therapy in June of 2017. Patient recalled that the surgical procedure was quite dramatic. Patient was having lots of pain in the right upper abdomen as well as in the right shoulder. Eventually patient recovered from the procedure. Patient presents here today because she was not happy with the care at the [place] and would like to see a different opinion. She is complaining there is no follow-up and there is no CT scan ordered. According to Dr. Whittington note, patient received a $35,000 bill from [place] regarding the ablation. Patient also is trying to pay off other bills. He was seen by Dr. Ruddy Qiu recently. CT scan of the abdomen with and without contrast was performed on March 16, 2018. The CT scan showed fluid collection in the posterior right hepatic lobe in segment 7 consistent with post treatment changes from reported prior RFA. An enhancing adjacent hypervascular lesion with washout was noted consistent with residual or recurrent hepatocellular carcinoma. An additional mass in segment 6 demonstrating areas of washout with internal foci of hypervascular enhancement also thought to be consistent with hepatocellular carcinoma. Multiple additional small hypervascular foci in the liver without definite associated washout are thought to be nonspecific. Interim Events: Patient went to [facility] and was evaluated by Dr. Jersey Guadarrama. Further workup is ongoing at this moment. Clinically patient has been doing well without any new concerns or symptoms. - Patient Self-Reported Symptoms SR Constitution: Fatigue/Malaise SR eye issues: Vision changes SR ears, nose, mouth, throat issues: Ears ringing, Cough, Mouth sores SR respiratory issues: Cough, Shortness of breath SR Cardiovascular issues: Chest pain, discomfort, tightness, Shortness of breath with activity or lying flat, Dizzy/lightheaded SR Gastrointestinal issues: Poor or no appetite, Change in bowel pattern, Nausea , Abdominal pain, Heartburn SR Genitourinary issues: Frequent urination SR Musculoskeletal issues: Joint pain or swelling, Muscle weakness, Muscle pain or cramps, Back or neck pain, Cold hands or feet SR Neuro issues: Lightheaded/dizzy, Numbness or tingling, Difficulty balancing SR Endocrine issues: Cold intolerance, Heat intolerance - Additional ROS All systems PM: reviewed and no additional remarkable complaints except as stated Home Medications and Allergies Home Medications Medication Instructions Recorded Confirmed Type ASPIRIN (#ASPIR 81) 81 mg PO Q DAY #0 12/15/11 05/13/18 History HOMEOPATHIC SUBSTANCE (MILK 1 cap PO Q DAY #0 12/15/11 03/26/18 History THISTLE) VITAMIN D (Vitamin D3) 1,000 unit PO QDAY #0 01/07/12 03/26/18 History VITAMIN B COMPLEX ([id number]) 1 cap PO Q DAY #0 03/08/12 03/26/18 History lisinopril 20 mg PO QDAY #30 tab 02/19/17 03/26/18 Rx Disabled Parking #1 [id number] 04/29/18 Rx Allergies Allergy/AdvReac Type Severity Reaction Status Date / Time Penicillins [PENICILLINS] Allergy Intermediate RASH Verified 03/26/18 13:30 codeine [CODEINE] Allergy Mild ITCHY Verified 03/26/18 13:30 erythromycin base Allergy Mild Verified 03/26/18 13:30 [From ERYTHROCIN] latex [LATEX] Allergy Mild RED SULTANA, Verified 03/26/18 13:30 PAINFUL Sulfa (Sulfonamide Allergy Mild Verified 03/26/18 13:30 Antibiotics) [SULFA (SULFONAMIDE ANTIBIOTICS)] doxycycline AdvReac Intermediate Vomiting Unverified 03/26/18 13:30 Exam Vital signs: Last Vital Signs Temp 97.4 F L 05/13/18 11:27 Pulse 72 05/13/18 11:27 Resp 18 05/13/18 11:27 BP 128/78 05/13/18 11:27 Pulse Ox 98 05/13/18 11:27 ECOG 1 Narrative: Constitutional: Well developed, well nourished, not in any acute respiratory distress, average body habitus, well groomed, pleasant and cooperative. HEENT: Normocephalic atraumatic. Extraocular muscle movement intact. Pupils are round, equal and reactive to light and accommodations. Anicteric sclera. No hearing difficulty; Oral mucus membrane moist and without ulcers. Neck: Supple, symmetrical, and tracheal midline; No palpable thyromegaly and no palpable lymph nodes. Respiratory: No use of accessory muscles. Clear to auscultation, and no wheezes or rales or rubs. Cardiovascular: Regular rate and rhythm, S1 and S2 normal, no murmurs gallops or rubs. No JVD. No pitting edema of lower extremities. Abdomen: Soft, non-distended, bowel sounds normal, no palpable organomegaly, no hernia, no palpable masses. Mild tender over right upper abdomen. Lower extremities: No palpable pedal edema. Lymphatic: no palpable lymph nodes in the neck, axillae, or groins. Musculoskeletal: normal gait and station, no clubbing, no cyanosis, no pitting edema. Skin: no rashes, no ulcers, no petechiae Neurological: Awake and alert and oriented x3. CN II-XII grossly intact. No focal motor or sensory deficit. Psychiatric: Good judgment, good insight, normal affect, normal thought process , cooperative, no depression, no anxiety. Results - Imaging Additional studies: Procedures Injection or infusion of other therapeutic or prophylactic substance (07/25/11) Assessment and Plan (1) Hepatocellular carcinoma She is currently undergoing restaging studies at [facility]. Patient has already completed the CT scan. The CT scan showed no distant metastasis. I talked with the patient that she should continue follow-up at the [facility]. Hopefully she is going to be a good candidate for either chemoembolization or radioembolization for local treatment of the hepatocellular carcinoma. Patient voiced understanding. I talked with the patient that I will tentatively schedule her to come back to see me in about 2 months as a follow-up visit. We will repeat CBC, CMP, and alpha-fetoprotein level. (2) Chronic hepatitis C virus infection The patient has been followed by Dr. Elias Lam for treatment of hepatitis C. (3) Liver cirrhosis At present, I did not see any clear evidence of splenomegaly, bleeding, or varicose veins of the distal esophagus. However patient will need to establish care with a supervisor blast furnace for continued follow-up and management. Patient voiced understanding.
[2018-05-13 11:27] VITALS: BP 128/78; PULSE 72; RESP 18; TEMP 36.3; O2SAT 98
[2018-07-09 14:17] LABS: Add Manual Diff / Slide Review NO; Eosinophils Percent Auto 3.1 % (2-4); Hematocrit 36.5 % (36-46); Hemoglobin 12.4 g/dL (12.0-16.0); Lymphocytes Percent Auto 29.5 % (25-40); Mean Corpuscular Hemoglobin 31.8 PG (26-34); Mean Corpuscular Volume 93.6 fL (80-100); Monocytes Percent Auto 10.8 % (3-14); Neutrophils Absolute Auto 4700 /uL (1500-7000); Neutrophils Percent Auto 55.6 % (50-75); Platelet Count 223 X10^3/uL (150-400); Red Blood Cell Count 3.89 X10^6/uL (4.0-5.2); Red Cell Distribution Width 13.1 % (11.6-14.8); White Blood Cell Count 8.4 X10^3/uL (4.5-11.0)
[2018-07-09 14:48] LABS: Alanine Aminotransferase 116 IU/L (9-52); Albumin 3.5 g/dL (3.5-5.0); Albumin Globulin Ratio 0.9 (1.0-2.8); Alkaline Phosphatase 72 U/L (38-126); Aspartate Aminotransferase 179 IU/L (14-36); Bilirubin Total 0.5 mg/dL (0.2-1.3); Blood Urea Nitrogen 15 mg/dL (7-17); Calcium 8.9 mg/dL (8.4-10.2); Carbon Dioxide 27 mmol/L (22-32); Chloride 105 mmol/L (98-107); Estimated Glomerular Filt Rate > 60.0 mL/min (>60); Globulin 3.8 g/dL (1.7-4.1); Glucose 113 mg/dL (80-110); HEMOLYSIS < 15 (0-50); Potassium 4.1 mmol/L (3.4-5.1); Sodium 140 mmol/L (137-145); Total Protein 7.3 g/dL (6.3-8.2)
--- NOTE | 2018-07-09 16:07 | PC.NURSE ---
labs done with improvement seen in WBC, AST,ALT on of which were down from 07/01 labs. Provider visits on 07/15
[2018-07-14 13:37] LABS: Alpha Fetoprotein 448.8 ng/mL (< 6.1)
[2018-07-16 13:49] VITALS: BP 153/86; PULSE 78; RESP 19; TEMP 37; O2SAT 100
--- NOTE | 2018-07-16 13:51 | ONC.APRN.PN ---
PN -Subjective Interval history: Chief Complaint: Hepatocellular carcinoma History of Present Illness Ms. Katie Rucker is a 62 year old female with extensive multiple medical problems most notable for hypertension, hepatitis C, hypertension, cirrhosis, peripheral artery disease, and intracranial aneurysm status post surgery. As far as hepatitis C is concerned, patient was diagnosed in 2000. Patient used to use intravenous drug in the 60s. That could be a potential source of her hepatitis C infection. After diagnosis of hepatitis C, patient has received treatment with interferon and ribavirin at [facility] in 2001, and was not successful. She has not been treated with anti viral medications for example Harvoni. In 2012 patient was found to have a liver nodule and she underwent CT-guided biopsy of a 1.5 cm liver nodule in the right lobe of the liver. The final pathology showed no evidence of malignancy but active hepatitis and cirrhosis. I believe during the follow-up visit in November of 2016 the ultrasound study revealed a 2 x 1.4 x 1.8 cm hypoechoic lesion in the anterior right liver, which was not present on ultrasound study of 2015. On May 19, 2017 patient underwent needle core biopsy of the liver lesion and the surgical pathology showed moderately differentiated hepatocellular carcinoma. According to Dr. Whittington's progress note, the AFP level was within the normal range at the time. After the diagnosis of hepatocellular carcinoma, patient underwent interventional radiofrequency ablative therapy in June of 2017. Patient recalled that the surgical procedure was quite dramatic. Patient was having lots of pain in the right upper abdomen as well as in the right shoulder. Eventually patient recovered from the procedure. Patient presents here today because she was not happy with the care at the [facility] and would like to see a different opinion. She is complaining there is no follow-up and there is no CT scan ordered. According to Dr. Whittington note, patient received a $35,000 bill from [facility] regarding the ablation. Patient also is trying to pay off other bills. The pt was seen by her PCP was seen by Dr. Ruddy Qiu recently. CT scan of the abdomen with and without contrast was performed on March 16, 2018. The CT scan showed fluid collection in the posterior right hepatic lobe in segment 7 consistent with post treatment changes from reported prior RFA. An enhancing adjacent hypervascular lesion with washout was noted consistent with residual or recurrent hepatocellular carcinoma. An additional mass in segment 6 demonstrating areas of washout with internal foci of hypervascular enhancement also thought to be consistent with hepatocellular carcinoma. Multiple additional small hypervascular foci in the liver without definite associated washout are thought to be nonspecific. Interim Events: Patient went to [facility] and was evaluated by Dr. Jersey Gaudarrama. Further workup is ongoing at this moment, she is scheduled for Y90 at next week. Clinically patient has been doing well without any new concerns or symptoms. No worsening nausea. No abd pain, no shoulder pain. Appetite stable, no issues with bowels. Still having some mild fatigue and and bloating. No unexplained bleeding or bruising. Also reports I think I have a tooth infection. States she has gingivitis and is prone to oral dental infections. She does not have a dentist at present and has limited funds to pay for a visit. Denies any drainage does reports some mild swelling and pain in her bottom teeth on the left side especially when I drink cold beverages. She is having to chew on her left side. Denies fever, chills. - Patient Self-Reported Symptoms SR Constitution: Fatigue/Malaise SR eye issues: Vision changes SR ears, nose, mouth, throat issues: Ears ringing, Cough, Mouth sores SR respiratory issues: Cough, Shortness of breath SR Cardiovascular issues: Chest pain, discomfort, tightness, Shortness of breath with activity or lying flat, Dizzy/lightheaded SR Gastrointestinal issues: Poor or no appetite, Change in bowel pattern, Nausea, Abdominal pain, Heartburn SR Genitourinary issues: Frequent urination SR Musculoskeletal issues: Joint pain or swelling, Muscle weakness, Muscle pain or cramps, Back or neck pain, Cold hands or feet SR Neuro issues: Lightheaded/dizzy, Numbness or tingling, Difficulty balancing SR Hematologic issues: Bleeding/bruising SR Endocrine issues: Cold intolerance, Heat intolerance Home Medications and Allergies Home Medications Medication Instructions Recorded Confirmed Type ASPIRIN (#ASPIR 81) 81 mg PO Q DAY #0 12/15/11 05/13/18 History HOMEOPATHIC SUBSTANCE (MILK 1 cap PO Q DAY #0 12/15/11 03/26/18 History THISTLE) VITAMIN D (Vitamin D3) 1,000 unit PO QDAY #0 01/07/12 03/26/18 History VITAMIN B COMPLEX ([id number]) 1 cap PO Q DAY #0 03/08/12 03/26/18 History lisinopril 20 mg PO QDAY #30 tab 02/19/17 03/26/18 Rx Disabled Parking #1 [id number] 04/29/18 Rx amoxicillin 500 mg PO TID #20 cap 07/16/18 Rx Allergies Allergy/AdvReac Type Severity Reaction Status Date / Time Penicillins [PENICILLINS] Allergy Intermediate RASH Verified 07/01/18 09:25 codeine [CODEINE] Allergy Mild ITCHY Verified 07/01/18 09:25 erythromycin base Allergy Mild Verified 07/01/18 09:25 [From ERYTHROCIN] latex [LATEX] Allergy Mild RED SULTANA, Verified 07/01/18 09:25 PAINFUL Sulfa (Sulfonamide Allergy Mild Verified 07/01/18 09:25 Antibiotics) [SULFA (SULFONAMIDE ANTIBIOTICS)] doxycycline AdvReac Intermediate Vomiting Verified 07/01/18 09:25 Exam - Constitutional positive no acute distress - Routine HEENT Exam Head: Present: normocephalic Eye: Present: conjunctivae pink. Absent: conjunctival icterus, scleral injection ENT: Present: mucous membranes moist, oropharynx clear. Absent: dentition normal Comments: very mild edema right lower canine and premolar. Mild erythema. No drainage, no abscess. Canine loose - Routine Neck Exam Present: supple. Absent: lymphadenopathy - Routine Chest/Breast/Axilla Exam Axillae: Absent: lymphadenopathy, mass - Routine Respiratory Exam Present: Clear to auscultation bilaterally. Absent: rales, rhonchi, wheezes - Routine Cardiovascular Exam Present: RRR, S1, S2. Absent: murmur, gallop, rubs, JVD - Routine Abdominal Exam Present: soft, normoactive bowel sounds. Absent: tenderness, distended, rebound, guarding, organomegaly Palpation/Percussion: Absent: hepatomegaly - Routine Extremities Exam Absent: edema, calf tenderness - Routine Skin Exam Present: intact, normal turgor. Absent: petechiae, rash - Routine Neurological Exam Present: alert, oriented X3 - Routine Psychiatric Exam Present: normal affect Results - Labs Laboratory Last Values WBC 8.4 X10^3/uL (4.5-11.0) 07/09/18 14:03 RBC 3.89 X10^6/uL (4.0-5.2) L 07/09/18 14:03 Hgb 12.4 g/dL (12.0-16.0) 07/09/18 14:03 Hct 36.5 % (36-46) 07/09/18 14:03 MCV 93.6 fL (80-100) 07/09/18 14:03 MCH 31.8 PG (26-34) 07/09/18 14:03 MCHC 34.0 % (30-36) 07/09/18 14:03 RDW 13.1 % (11.6-14.8) 07/09/18 14:03 Plt Count 223 X10^3/uL (150-400) 07/09/18 14:03 Neut % (Auto) 55.6 % (50-75) 07/09/18 14:03 Lymph % (Auto) 29.5 % (25-40) 07/09/18 14:03 [place] % (Auto) 10.8 % (3-14) 07/09/18 14:03 Eos % (Auto) 3.1 % (2-4) 07/09/18 14:03 Baso % (Auto) 1.0 % (0-2) 07/09/18 14:03 Neut # (Auto) 4700 /uL (7032-9132) 07/09/18 14:03 Sodium 140 mmol/L (137-145) 07/09/18 14:03 Potassium 4.1 mmol/L (3.4-5.1) 07/09/18 14:03 Chloride 105 mmol/L (98-107) 07/09/18 14:03 Carbon Dioxide 27 mmol/L (22-32) 07/09/18 14:03 BUN 15 mg/dL (7-17) 07/09/18 14:03 Creatinine 0.60 mg/dL (0.52-1.04) 07/09/18 14:03 Estimated GFR > 60.0 mL/min (>60) 07/09/18 14:03 BUN/Creatinine Ratio 25.0 (6-22) H 07/09/18 14:03 Glucose 113 mg/dL (80-110) H 07/09/18 14:03 Calcium 8.9 mg/dL (8.4-10.2) 07/09/18 14:03 Total Bilirubin 0.5 mg/dL (0.2-1.3) 07/09/18 14:03 AST 179 IU/L (14-36) H 07/09/18 14:03 ALT 116 IU/L (9-52) H 07/09/18 14:03 Alkaline Phosphatase 72 U/L (38-126) 07/09/18 14:03 Total Protein 7.3 g/dL (6.3-8.2) 07/09/18 14:03 Albumin 3.5 g/dL (3.5-5.0) 07/09/18 14:03 Globulin 3.8 g/dL (1.7-4.1) 07/09/18 14:03 Albumin/Globulin Ratio 0.9 (1.0-2.8) L 07/09/18 14:03 Alpha Fetoprotein 448.8 ng/mL (< 6.1) H 07/09/18 14:03 - Imaging Additional studies: Procedures Injection or infusion of other therapeutic or prophylactic substance (07/25/11) Assessment and Plan (1) Hepatocellular carcinoma Currently receiving her primary oncologic care at [facility]. Patient has already completed the CT scan. The CT scan showed no distant metastasis. Scheduled with interventional radiologist next week for Y90 . Patient appears to be quite stable on exam today. No worsening symptoms. Labs are quite reassuring AST, ALT and AFP are all trending downward. At this point in time we will schedule a 2 month follow-up. Certainly we are happy to see patient sooner if she desires or if clinically indicated. Return to clinic in 2 months time for visit with Dr. Zelaya at which time we will also check a cbc cmp AFP. I have requested she remind providers to have visit notes sent to [facility]. (2) Chronic hepatitis C virus infection The patient has been followed by Dr. Elias Lam for treatment of hepatitis C. Clinically stable at this point in time. (3) Liver cirrhosis On exam today no evidence of splenomegaly, bleeding, or varicose veins of the distal esophagus. Cont as per . (4) Dental infection Current visit: Yes Status: Acute Suspected. Pt first noted pain in her lower jaw last week. Difficult to chew on that side also sensitive to cold. Ot has no dentist at present and limited funds. I discussed with the pt I will provide her with antibiotic however she absolutely still requires dental care. I will not write her another RX, if no better after antbx or at any time symptoms worsen she will need to be evaluated by a dentist. Pt verbalizes understanding. Amox 500mg TID x 7 days
[2018-09-23 14:51] VITALS: BP 147/76; PULSE 76; RESP 18; TEMP 36.4; O2SAT 99
--- NOTE | 2018-09-23 15:05 | P.PNONC_ITS ---
PN -Subjective Interval history: On Jul 22, 2018, the patient underwent Y90 radioembolization at [facility].Immediately after Y90, she was hospitalized for hypertension (SBP 220s), nausea and vomiting for overnight observation. Overall, she was having some persistent abdominal discomfort. Dr. Diaz Bowden performed the procedure. The case is scheduled to be discussed at [facility] again. Recently, she developed right sided jaw pain, 'inflamed 7th cranial nerve. She is having difficulty chewing food. The right jaw was swollen and painful. History of Present Illness Ms. Katie Rucker is a 62 year old female with extensive multiple medical problems most notable for hypertension, hepatitis C, hypertension, cirrhosis, peripheral artery disease, and intracranial aneurysm status post surgery. As far as hepatitis C is concerned, patient was diagnosed in 2000. Patient used to use intravenous drug in the 60s. That could be a potential source of her hepatitis C infection. After diagnosis of hepatitis C, patient has received treatment with interferon and ribavirin at [facility] in 2001, and was not successful. She has not been treated with anti viral medications for example Harvoni. In 2012 patient was found to have a liver nodule and she underwent CT-guided biopsy of a 1.5 cm liver nodule in the right lobe of the liver. The final pathology showed no evidence of malignancy but active hepatitis and cirrhosis. I believe during the follow-up visit in November of 2016 the ultrasound study revealed a 2 x 1.4 x 1.8 cm hypoechoic lesion in the anterior right liver, which was not present on ultrasound study of 2016. On May 19, 2017 patient underwent needle core biopsy of the liver lesion and the surgical pathology showed moderately differentiated hepatocellular carcinoma. According to Dr. Whittington's progress note, the AFP level was within the normal range at the time. After the diagnosis of hepatocellular carcinoma, patient underwent interventional radiofrequency ablative therapy in June of 2017. Patient recalled that the surgical procedure was quite dramatic. Patient was having lots of pain in the right upper abdomen as well as in the right shoulder. Eventually patient recovered from the procedure. Patient presents here today because she was not happy with the care at the [facility] and would like to see a different opinion. She is complaining there is no follow-up and there is no CT scan ordered. According to Dr. Whittington note, patient received a $35,000 bill from [facility] regarding the ablation. Patient also is trying to pay off other bills. The pt was seen by her PCP was seen by Dr. Ruddy Qiu recently. CT scan of the abdomen with and without contrast was performed on March 16, 2018. The CT scan showed fluid collection in the posterior right hepatic lobe in segment 7 consistent with post treatment changes from reported prior RFA. An enhancing adjacent hypervascular lesion with washout was noted consistent with residual or recurrent hepatocellular carcinoma. An additional mass in segment 6 demonstrating areas of washout with internal foci of hypervascular enhancement also thought to be consistent with hepatocellular carcinoma. Multiple additional small hypervascular foci in the liver without definite associated washout are thought to be nonspecific. Interim Events: Patient went to [facility] and was evaluated by Dr. Jersey Guadarrama. Further workup is ongoing at this moment, she is scheduled for Y90 at next week. Clinically patient has been doing well without any new concerns or symptoms. No worsening nausea. No abd pain, no shoulder pain. Appetite stable, no issues with bowels. Still having some mild fatigue and and bloating. No unexplained bleeding or bruising. Also reports I think I have a tooth infection. States she has gingivitis and is prone to oral dental infections. She does not have a dentist at present and has limited funds to pay for a visit. Denies any drainage does reports some mild swelling and pain in her bottom teeth on the left side especially when I drink cold beverages. She is having to chew on her left side. Denies fever, chills. - Patient Self-Reported Symptoms SR Constitution: Fatigue/Malaise SR eye issues: Vision changes SR ears, nose, mouth, throat issues: Ears ringing, Cough, Mouth sores SR respiratory issues: Cough, Shortness of breath SR Cardiovascular issues: Chest pain, discomfort, tightness, Shortness of breath with activity or lying flat, Dizzy/lightheaded SR Gastrointestinal issues: Poor or no appetite, Change in bowel pattern, Nausea, Abdominal pain, Heartburn SR Genitourinary issues: Frequent urination SR Musculoskeletal issues: Joint pain or swelling, Muscle weakness, Muscle pain or cramps, Back or neck pain, Cold hands or feet SR Neuro issues: Lightheaded/dizzy, Numbness or tingling, Difficulty balancing SR Hematologic issues: Bleeding/bruising SR Endocrine issues: Cold intolerance, Heat intolerance - Additional ROS All systems PM: reviewed and no additional remarkable complaints except as stated Home Medications and Allergies Home Medications Medication Instructions Recorded Confirmed Type ASPIRIN (#ASPIR 81) 81 mg PO Q DAY #0 12/15/11 09/09/18 History VITAMIN D (Vitamin D3) 1,000 unit PO QDAY #0 01/07/12 09/09/18 History VITAMIN B COMPLEX ([id number]) 1 cap PO Q DAY #0 03/08/12 09/09/18 History Disabled Parking #1 each 04/29/18 09/09/18 Rx lisinopril 40 mg tablet 40 mg PO DAILY #30 tab 07/27/18 09/09/18 Rx amlodipine 5 mg tablet 5 mg PO DAILY #30 tab 09/09/18 Rx Allergies Allergy/AdvReac Type Severity Reaction Status Date / Time Penicillins [PENICILLINS] Allergy Intermediate RASH Verified 09/09/18 09:32 codeine [CODEINE] Allergy Mild ITCHY Verified 09/09/18 09:32 erythromycin base Allergy Mild Verified 09/09/18 09:32 [From ERYTHROCIN] latex [LATEX] Allergy Mild RED SULTANA, Verified 09/09/18 09:32 PAINFUL Sulfa (Sulfonamide Allergy Mild Verified 09/09/18 09:32 Antibiotics) [SULFA (SULFONAMIDE ANTIBIOTICS)] doxycycline AdvReac Intermediate Vomiting Verified 09/09/18 09:32 Exam Vital signs: Last Vital Signs Temp 97.6 F 09/23/18 14:51 Pulse 76 09/23/18 14:51 Resp 18 09/23/18 14:51 BP 147/76 H 09/23/18 14:51 Pulse Ox 99 09/23/18 14:51 ECOG 1 Narrative: Constitutional: Well developed, well nourished, NAD, but appear anxious. She is cooperative. HEENT: EOMI, anicteric sclera. Right jaw area is swollen and tenderness. No erythema. Not warm. Neck: Supple, symmetrical; No palpable thyromegaly and no palpable lymph nodes. Respiratory: No use of accessory muscles. Clear to auscultation, and no wheezes or rales or rubs. Cardiovascular: RRR, S1 and S2 normal, no murmurs gallops or rubs. No JVD. No pitting edema of lower extremities. Abdomen: Soft, non-distended, no palpable organomegaly, no hernia, no palpable masses. Mild tender over right upper abdomen. Lower extremities: No palpable pedal edema. Lymphatic: no palpable lymph nodes in the neck, axillae Neurological: Awake and alert and oriented x3. CN II-XII grossly intact. No focal motor or sensory deficit. Psychiatric: Good judgment, good insight, normal thought process, cooperative Results - Labs Laboratory Last Values WBC 6.6 X10^3/uL (4.5-11.0) 09/23/18 14:30 RBC 4.09 X10^6/uL (4.0-5.2) 09/23/18 14:30 Hgb 12.9 g/dL (12.0-16.0) 09/23/18 14:30 Hct 38.3 % (36-46) 09/23/18 14:30 MCV 93.6 fL (80-100) 09/23/18 14:30 MCH 31.5 PG (26-34) 09/23/18 14:30 MCHC 33.7 % (30-36) 09/23/18 14:30 RDW 13.9 % (11.6-14.8) 09/23/18 14:30 Plt Count 201 X10^3/uL (150-400) 09/23/18 14:30 Neut % (Auto) 60.5 % (50-75) 09/23/18 14:30 Lymph % (Auto) 21.9 % (25-40) L 09/23/18 14:30 [place] % (Auto) 11.1 % (3-14) 09/23/18 14:30 Eos % (Auto) 6.0 % (2-4) H 09/23/18 14:30 Baso % (Auto) 0.5 % (0-2) 09/23/18 14:30 Neut # (Auto) 4000 /uL (4509-5801) 09/23/18 14:30 Lymph # (Auto) 1500 /uL (0132-6207) 09/23/18 14:30 [place] # (Auto) 700 /uL (0-900) 09/23/18 14:30 Eos # (Auto) 400 /uL (0-450) 09/23/18 14:30 Baso # (Auto) 0 /uL (0-100) 09/23/18 14:30 Sodium 135 mmol/L (137-145) L 09/23/18 14:30 Potassium 4.5 mmol/L (3.4-5.1) 09/23/18 14:30 Chloride 99 mmol/L (98-107) 09/23/18 14:30 Carbon Dioxide 26 mmol/L (22-32) 09/23/18 14:30 BUN 25 mg/dL (7-17) H 09/23/18 14:30 Creatinine 0.80 mg/dL (0.52-1.04) 09/23/18 14:30 Estimated GFR > 60.0 mL/min (>60) 09/23/18 14:30 BUN/Creatinine Ratio 31.3 (6-22) H 09/23/18 14:30 Glucose 141 mg/dL (80-110) H 09/23/18 14:30 Calcium 9.2 mg/dL (8.4-10.2) 09/23/18 14:30 Total Bilirubin 0.5 mg/dL (0.2-1.3) 09/23/18 14:30 AST 193 IU/L (14-36) H 09/23/18 14:30 ALT 111 IU/L (9-52) H 09/23/18 14:30 Alkaline Phosphatase 84 U/L (38-126) 09/23/18 14:30 Total Protein 7.6 g/dL (6.3-8.2) 09/23/18 14:30 Albumin 3.7 g/dL (3.5-5.0) 09/23/18 14:30 Globulin 3.9 g/dL (1.7-4.1) 09/23/18 14:30 Albumin/Globulin Ratio 0.9 (1.0-2.8) L 09/23/18 14:30 Alpha Fetoprotein 448.8 ng/mL (< 6.1) H 07/09/18 14:03 - Imaging Additional studies: Procedures Injection or infusion of other therapeutic or prophylactic substance (07/25/11) Assessment and Plan (1) Hepatocellular carcinoma Patient now is status post yttrium 90 treatment. Patient has appointment to see Dr. Jersey Guadarrama at [facility] for follow-up this month. I talked with the patient that I will see her after the [facility] follow-up. We will work together with [facility] as far as subsequent treatment is concerned. (2) Jaw inflammation, right Patient has a right jaw swelling without apparent erythema. Patient has some signs of facial nerve palsy. Patient said that initially she had numbness at the lower lips and chin. Patient currently is taking gabapentin and antibiotics. No significant improvement. She is having problem chewing. I talked with the patient that I will obtain CT scan of the soft tissue of the neck with contrast to evaluate if there is any possibility of metastasis. She has metal clip in the brain and MRI is contraindicated. Patient voiced understanding. (3) Chronic hepatitis C virus infection The patient has been followed by Dr. Elias Lam for treatment of hepatitis C. Clinically stable at this point in time. (4) Liver cirrhosis On exam today no evidence of splenomegaly, bleeding, or varicose veins of the distal esophagus. Cont as per VM.
[2018-09-23 15:08] LABS: Add Manual Diff / Slide Review NO; Basophils Absolute Auto 0 /uL (0-100); Basophils Percent Auto 0.5 % (0-2); Eosinophils Absolute Auto 400 /uL (0-450); Hematocrit 38.3 % (36-46); Hemoglobin 12.9 g/dL (12.0-16.0); Lymphocytes Absolute Auto 1500 /uL (1100-4500); Lymphocytes Percent Auto 21.9 % (25-40); Mean Corpuscular HGB Conc 33.7 % (30-36); Mean Corpuscular Hemoglobin 31.5 PG (26-34); Mean Corpuscular Volume 93.6 fL (80-100); Monocytes Absolute Auto 700 /uL (0-900); Monocytes Percent Auto 11.1 % (3-14); Neutrophils Absolute Auto 4000 /uL (1500-7000); Neutrophils Percent Auto 60.5 % (50-75); Platelet Count 201 X10^3/uL (150-400); Red Blood Cell Count 4.09 X10^6/uL (4.0-5.2); Red Cell Distribution Width 13.9 % (11.6-14.8); White Blood Cell Count 6.6 X10^3/uL (4.5-11.0)
[2018-09-23 15:17] LABS: Alanine Aminotransferase 111 IU/L (9-52); Albumin 3.7 g/dL (3.5-5.0); Albumin Globulin Ratio 0.9 (1.0-2.8); Alkaline Phosphatase 84 U/L (38-126); Aspartate Aminotransferase 193 IU/L (14-36); BUN Creatinine Ratio 31.3 (6-22); Bilirubin Total 0.5 mg/dL (0.2-1.3); Blood Urea Nitrogen 25 mg/dL (7-17); Calcium 9.2 mg/dL (8.4-10.2); Carbon Dioxide 26 mmol/L (22-32); Chloride 99 mmol/L (98-107); Estimated Glomerular Filt Rate > 60.0 mL/min (>60); Globulin 3.9 g/dL (1.7-4.1); Glucose 141 mg/dL (80-110); HEMOLYSIS < 15 (0-50); Potassium 4.5 mmol/L (3.4-5.1); Sodium 135 mmol/L (137-145); Total Protein 7.6 g/dL (6.3-8.2)
[2018-09-25 16:04] LABS: Alpha Fetoprotein 1579.5 ng/mL (< 6.1)
--- NOTE | 2018-10-04 15:59 | ONC.SCHED ---
ENT-appointment with Dr. Michelle at [facility] Thursday 9:35 check-in. Patient notified/
--- NOTE | 2018-10-07 09:47 | ONC.SCHED ---
Patient referred to ENT who did a biopsy in clinic and patient will be following up with them on 10/11. I notified Dr. Zelaya via msg/tsk and canceled the biopsy with [facility] in [place].
[2018-10-21 15:38] VITALS: BP 188/80; PULSE 85; RESP 18; TEMP 36.8; O2SAT 97
--- NOTE | 2018-10-21 16:12 | P.PNONC_ITS ---
PN -Subjective Interval history: Recently, she developed right sided jaw pain, 'inflamed 7th cranial nerve. She is having difficulty chewing food. The right jaw was swollen and painful. 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 She was referred to Dr. Michelle who did biopsy of the right mandibular mass. The pathology is consistent with metastatic HCC Patient presents today for discussion of systemic therapy. Patient's main complaint has been the pain on the right mandibular angle and pain with chewing. History of Present Illness Ms. Katie Rukcer is a 62 year old female with extensive multiple medical problems most notable for hypertension, hepatitis C, hypertension, cirrhosis, peripheral artery disease, and intracranial aneurysm status post surgery. As far as hepatitis C is concerned, patient was diagnosed in 2000. Patient used to use intravenous drug in the 60s. That could be a potential source of her hepatitis C infection. After diagnosis of hepatitis C, patient has received treatment with interferon and ribavirin at [facility] in 2001, and was not successful. She has not been treated with anti viral medications for example Harvoni. In 2012 patient was found to have a liver nodule and she underwent CT-guided biopsy of a 1.5 cm liver nodule in the right lobe of the liver. The final pathology showed no evidence of malignancy but active hepatitis and cirrhosis. I believe during the follow-up visit in November of 2016 the ultrasound study revealed a 2 x 1.4 x 1.8 cm hypoechoic lesion in the anterior right liver, which was not present on ultrasound study of 2016. On May 19, 2017 patient underwent needle core biopsy of the liver lesion and the surgical pathology showed moderately differentiated hepatocellular carcinoma. According to Dr. Whittington's progress note, the AFP level was within the normal range at the time. After the diagnosis of hepatocellular carcinoma, patient underwent interventional radiofrequency ablative therapy in June of 2017. Patient recalled that the surgical procedure was quite dramatic. Patient was having lots of pain in the right upper abdomen as well as in the right shoulder. Eventually patient recovered from the procedure. Patient presents here today because she was not happy with the care at the [facility] and would like to see a different opinion. She is complaining there is no follow-up and there is no CT scan ordered. According to Dr. Pk note, patient received a $35,000 bill from [facility] regarding the ablation. Patient also is trying to pay off other bills. The pt was seen by her PCP was seen by Dr. Ruddy Qiu recently. CT scan of the abdomen with and without contrast was performed on March 16, 2018. The CT scan showed fluid collection in the posterior right hepatic lobe in segment 7 consistent with post treatment changes from reported prior RFA. An enhancing adjacent hypervascular lesion with washout was noted consistent with residual or recurrent hepatocellular carcinoma. An additional mass in segment 6 demonstrating areas of washout with internal foci of hypervascular enhancement also thought to be consistent with hepatocellular carcinoma. Multiple additional small hypervascular foci in the liver without definite associated washout are thought to be nonspecific. On Jul 22, 2018, the patient underwent Y90 radioembolization at [facility].Immediately after Y90, she was hospitalized for hypertension (SBP 220s), nausea and vomiting for overnight observation. Overall, she was having some persistent abdominal discomfort. Dr. Diaz Bowden performed the procedure. The case is scheduled to be discussed at '[facility] Tumor [facility] again - Patient Self-Reported Symptoms SR Constitution: Weight loss/gain, Fatigue/Malaise SR eye issues: Vision changes SR ears, nose, mouth, throat issues: Cough, Difficulty swallowing, Mouth sores SR respiratory issues: Cough, Shortness of breath SR Cardiovascular issues: Chest pain, discomfort, tightness, Shortness of breath with activity or lying flat, Dizzy/lightheaded SR Gastrointestinal issues: Poor or no appetite, Change in bowel pattern, Nausea, Vomiting, Diarrhea, Constipation, Abdominal pain SR Genitourinary issues: Frequent urination SR Musculoskeletal issues: Joint pain or swelling, Muscle pain or cramps, Cold hands or feet SR Neuro issues: Lightheaded/dizzy, Numbness or tingling, Difficulty balancing SR Hematologic issues: Bleeding/bruising SR Endocrine issues: Cold intolerance, Heat intolerance - Additional ROS All systems PM: reviewed and no additional remarkable complaints except as stated Home Medications and Allergies Home Medications Medication Instructions Recorded Confirmed Type ASPIRIN (#ASPIR 81) 81 mg PO Q DAY #0 12/15/11 10/21/18 History VITAMIN D (Vitamin D3) 1,000 unit PO QDAY #0 01/07/12 10/21/18 History VITAMIN B COMPLEX (Q-[id number]-23) 1 cap PO Q DAY #0 03/08/12 10/21/18 History Disabled Parking #1 each 04/29/18 10/21/18 Rx amlodipine 5 mg tablet 5 mg PO DAILY #90 tab 09/27/18 10/21/18 Rx lisinopril 40 mg tablet 40 mg PO DAILY #90 tab 09/27/18 10/21/18 Rx sorafenib 400 mg PO Q12H #60 tab 10/21/18 Rx Allergies Allergy/AdvReac Type Severity Reaction Status Date / Time Penicillins [PENICILLINS] Allergy Intermediate RASH Verified 09/09/18 09:32 codeine [CODEINE] Allergy Mild ITCHY Verified 09/09/18 09:32 erythromycin base Allergy Mild Verified 09/09/18 09:32 [From ERYTHROCIN] latex [LATEX] Allergy Mild RED SULTANA, Verified 09/09/18 09:32 PAINFUL Sulfa (Sulfonamide Allergy Mild Verified 09/09/18 09:32 Antibiotics) [SULFA (SULFONAMIDE ANTIBIOTICS)] doxycycline AdvReac Intermediate Vomiting Verified 09/09/18 09:32 Exam Vital signs: Vital Signs Temp Pulse Resp BP Pulse Ox 10/21/18 15:38 98.2 F 85 18 188/80 H 97 Intake and Output 10/21/18 10/21/18 10/21/18 07:59 15:59 23:59 Other: Weight 57.7 kg Patient Weight 10/21/18 23:59 Weight 57.7 kg ECOG 1 Narrative: Constitutional: Well developed, well nourished, NAD, but appear anxious. She is cooperative. HEENT: EOMI, anicteric sclera. Right jaw area is swollen and tenderness. No erythema. Not warm. Neck: Supple, symmetrical; No palpable thyromegaly and no palpable lymph nodes. Respiratory: No use of accessory muscles. Clear to auscultation, and no wheezes or rales or rubs. Cardiovascular: RRR, S1 and S2 normal, no murmurs gallops or rubs. No JVD. No pitting edema of lower extremities. Abdomen: Soft, non-distended, no palpable organomegaly, no hernia, no palpable masses. Mild tender over right upper abdomen. Lower extremities: No palpable pedal edema. Lymphatic: no palpable lymph nodes in the neck, axillae Neurological: Awake and alert and oriented x3. CN II-XII grossly intact. No focal motor or sensory deficit. Psychiatric: Good judgment, good insight, normal thought process, cooperative Results - Labs Laboratory Last Values WBC 6.6 X10^3/uL (4.5-11.0) 09/23/18 14:30 RBC 4.09 X10^6/uL (4.0-5.2) 09/23/18 14:30 Hgb 12.9 g/dL (12.0-16.0) 09/23/18 14:30 Hct 38.3 % (36-46) 09/23/18 14:30 MCV 93.6 fL (80-100) 09/23/18 14:30 MCH 31.5 PG (26-34) 09/23/18 14:30 MCHC 33.7 % (30-36) 09/23/18 14:30 RDW 13.9 % (11.6-14.8) 09/23/18 14:30 Plt Count 201 X10^3/uL (150-400) 09/23/18 14:30 Neut % (Auto) 60.5 % (50-75) 09/23/18 14:30 Lymph % (Auto) 21.9 % (25-40) L 09/23/18 14:30 [place] % (Auto) 11.1 % (3-14) 09/23/18 14:30 Eos % (Auto) 6.0 % (2-4) H 09/23/18 14:30 Baso % (Auto) 0.5 % (0-2) 09/23/18 14:30 Neut # (Auto) 4000 /uL (3134-4113) 09/23/18 14:30 Lymph # (Auto) 1500 /uL (8620-9190) 09/23/18 14:30 [place] # (Auto) 700 /uL (0-900) 09/23/18 14:30 Eos # (Auto) 400 /uL (0-450) 09/23/18 14:30 Baso # (Auto) 0 /uL (0-100) 09/23/18 14:30 Sodium 135 mmol/L (137-145) L 09/23/18 14:30 Potassium 4.5 mmol/L (3.4-5.1) 09/23/18 14:30 Chloride 99 mmol/L (98-107) 09/23/18 14:30 Carbon Dioxide 26 mmol/L (22-32) 09/23/18 14:30 BUN 25 mg/dL (7-17) H 09/23/18 14:30 Creatinine 0.80 mg/dL (0.52-1.04) 09/23/18 14:30 Estimated GFR > 60.0 mL/min (>60) 09/23/18 14:30 BUN/Creatinine Ratio 31.3 (6-22) H 09/23/18 14:30 Glucose 141 mg/dL (80-110) H 09/23/18 14:30 Calcium 9.2 mg/dL (8.4-10.2) 09/23/18 14:30 Total Bilirubin 0.5 mg/dL (0.2-1.3) 09/23/18 14:30 AST 193 IU/L (14-36) H 09/23/18 14:30 ALT 111 IU/L (9-52) H 09/23/18 14:30 Alkaline Phosphatase 84 U/L (38-126) 09/23/18 14:30 Total Protein 7.6 g/dL (6.3-8.2) 09/23/18 14:30 Albumin 3.7 g/dL (3.5-5.0) 09/23/18 14:30 Globulin 3.9 g/dL (1.7-4.1) 09/23/18 14:30 Albumin/Globulin Ratio 0.9 (1.0-2.8) L 09/23/18 14:30 Alpha Fetoprotein 1579.5 ng/mL (< 6.1) H 09/23/18 14:30 - Imaging Additional studies: Procedures Injection or infusion of other therapeutic or prophylactic substance (07/25/11) Assessment and Plan (1) Hepatocellular carcinoma Patient now is status post yttrium 90 treatment. Patient did see Dr. Jersey Guadarrama at [facility] who recommended systemic therapy with Sorafenib 400 mg bid. I discussed with patient about the potential side effecs including but not limited to hypertension, [id number] syndrome, rashes, bone marrow suppression. Patient voiced understanding and would like to proceed. Plan: 1. Sorafenib 400 mg bid, start once received 2. RTC MD visit in 2-3 weeks, CBC, CMP. (2) Jaw inflammation, right Bx proved that the right mandibular jaw mass is consistent with metastatic HCC. For palliative pain control, I will monitor after she starts Sorafenib. If not improving, I will refer patient to radiation oncology for evaluation and treatment. (3) Chronic hepatitis C virus infection The patient has been followed by Dr. Elias Lam for treatment of hepatitis C. Clinically stable at this point in time. (4) Liver cirrhosis On exam today no evidence of splenomegaly, bleeding, or varicose veins of the distal esophagus. Cont as per VM. - Time Spent with Patient I discussed with the patient about the diagnosis of hepatocellular carcinoma after the biopsy of the right jaw all mass by Dr. sifuentes. Apparently it is a metastatic hepatocellular carcinoma. And I agree Dr. Guadarrama for systemic therapy. I will start the patient on sorafenib 400 mg twice daily. I will bring this patient back in 2 weeks for follow-up visit. I did discuss with the patient about potential side effects including hypertension, bone marrow suppression, hand-foot syndrome, as well as possible severe fatigue etc. Patient voiced un derstanding and willingness to move forward. I also talked with the patient about radiation oncology consult. Patient said that Dr. emerson has already ordered PET scan and has already talked with her about radiation oncology referral. I will follow up on the report from Dr. gerardo.
--- NOTE | 2018-10-26 10:20 | ONC.SCHED ---
NEXAVAR TAB 200MG Approved
--- NOTE | 2018-10-28 11:33 | ONC.NAV ---
Description: Financial Co-Pay Assistance for Nexavar Activity: Completed the application forms for pt to apply for co-pay assistance. She will come in next Thursday to sign the forms and provide proof of income. Once this is complete, this BREAKFAST SUPERVISOR will fax in to [facility]. Pt states that she is not feeling well, is having constant pain in her jaw, which is now radiating into her ear and down her throat. BREAKFAST SUPERVISOR shared that Dr. Zelaya was planning to write an order today for her to go for a radiation consult at [facility] re: potential for palliative radiation. Plan: Will plan to f/u with Dr. Zelaya re: the radiation order, and assist with care coordination re: getting pt scheduled.
--- NOTE | 2018-11-01 11:05 | ONC.NAV ---
Description: Financial CO-Pay Assistance for Nexavar Activity: Pt came in to clinic and signed the forms for her Nexavar. Faxed in to [facility], will notify patient once a determination has been made.
--- NOTE | 2018-11-02 09:03 | PC.NURSE ---
[facility] calling to clarify order for Nexavar. RX received for 15 day supply (#60) instead of typical 30 day supply (#120). Order clarified with Dr. Zelaya.; Pharmacist, Marybeth, notified and 30 day supply (#120) ordered.
[2018-11-03 12:08] LABS: Add Manual Diff / Slide Review NO; Basophils Absolute Auto 0 /uL (0-100); Basophils Percent Auto 0.6 % (0-2); Eosinophils Absolute Auto 100 /uL (0-450); Eosinophils Percent Auto 1.2 % (2-4); Hematocrit 37.9 % (36-46); Hemoglobin 13.1 g/dL (12.0-16.0); Lymphocytes Absolute Auto 900 /uL (1100-4500); Lymphocytes Percent Auto 11.4 % (25-40); Mean Corpuscular HGB Conc 34.6 % (30-36); Mean Corpuscular Hemoglobin 32.2 PG (26-34); Monocytes Absolute Auto 700 /uL (0-900); Monocytes Percent Auto 8.3 % (3-14); Neutrophils Absolute Auto 6400 /uL (1500-7000); Neutrophils Percent Auto 78.5 % (50-75); Platelet Count 191 X10^3/uL (150-400); Red Blood Cell Count 4.08 X10^6/uL (4.0-5.2); Red Cell Distribution Width 13.3 % (11.6-14.8); White Blood Cell Count 8.2 X10^3/uL (4.5-11.0)
[2018-11-03 12:23] LABS: Alanine Aminotransferase 118 IU/L (9-52); Albumin 3.9 g/dL (3.5-5.0); Albumin Globulin Ratio 1.1 (1.0-2.8); Alkaline Phosphatase 105 U/L (38-126); Aspartate Aminotransferase 198 IU/L (14-36); BUN Creatinine Ratio 32.5 (6-22); Blood Urea Nitrogen 26 mg/dL (7-17); Carbon Dioxide 25 mmol/L (22-32); Chloride 101 mmol/L (98-107); Estimated Glomerular Filt Rate > 60.0 mL/min (>60); Globulin 3.5 g/dL (1.7-4.1); Glucose 113 mg/dL (80-110); HEMOLYSIS < 15 (0-50); Sodium 136 mmol/L (137-145); Total Protein 7.4 g/dL (6.3-8.2)
[2018-11-06 17:03] LABS: Alpha Fetoprotein 9367.05 ng/mL (< 6.1)
[2018-11-08 12:55] VITALS: BP 148/76; PULSE 88; RESP 18; TEMP 36.9; O2SAT 97
--- NOTE | 2018-11-08 13:16 | ONC.PN ---
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 She was referred to Dr. Michelle who did biopsy of the right mandibular mass. The pathology is consistent with metastatic HCC. Patient just received the sorafenib has not started yet. Patient is complaining significant right jaw pain. Patient is also complaining left-sided rib pain as well as left-sided lower back pain. No fever and no chills. Patient's problems eating and drinking because the right jaw pain. She is accompanied by her son Rosas today. No shortness of breath. No chest pain. patient has some abdominal pain. History of Present Illness Ms. Katie Rucker is a 62 year old female with extensive multiple medical problems most notable for hypertension, hepatitis C, hypertension, cirrhosis, peripheral artery disease, and intracranial aneurysm status post surgery. As far as hepatitis C is concerned, patient was diagnosed in 2000. Patient used to use intravenous drug in the 60s. That could be a potential source of her hepatitis C infection. After diagnosis of hepatitis C, patient has received treatment with interferon and ribavirin at [facility] in 2001, and was not successful. She has not been treated with anti viral medications for example Harvoni. In 2012 patient was found to have a liver nodule and she underwent CT-guided biopsy of a 1.5 cm liver nodule in the right lobe of the liver. The final pathology showed no evidence of malignancy but active hepatitis and cirrhosis. I believe during the follow-up visit in November of 2016 the ultrasound study revealed a 2 x 1.4 x 1.8 cm hypoechoic lesion in the anterior right liver, which was not present on ultrasound study of 2016. On May 19, 2017 patient underwent needle core biopsy of the liver lesion and the surgical pathology showed moderately differentiated hepatocellular carcinoma. According to Dr. Whittington's progress note, the AFP level was within the normal range at the time. After the diagnosis of hepatocellular carcinoma, patient underwent interventional radiofrequency ablative therapy in June of 2017. Patient recalled that the surgical procedure was quite dramatic. Patient was having lots of pain in the right upper abdomen as well as in the right shoulder. Eventually patient recovered from the procedure. Patient presents here today because she was not happy with the care at the [facility] and would like to see a different opinion. She is complaining there is no follow-up and there is no CT scan ordered. According to Dr. Whittington note, patient received a $35,000 bill from [facility] regarding the ablation. Patient also is trying to pay off other bills. The pt was seen by her PCP was seen by Dr. Ruddy Qiu recently. CT scan of the abdomen with and without contrast was performed on March 16, 2018. The CT scan showed fluid collection in the posterior right hepatic lobe in segment 7 consistent with post treatment changes from reported prior RFA. An enhancing adjacent hypervascular lesion with washout was noted consistent with residual or recurrent hepatocellular carcinoma. An additional mass in segment 6 demonstrating areas of washout with internal foci of hypervascular enhancement also thought to be consistent with hepatocellular carcinoma. Multiple additional small hypervascular foci in the liver without definite associated washout are thought to be nonspecific. On Jul 22, 2018, the patient underwent Y90 radioembolization at [facility].Immediately after Y90, she was hospitalized for hypertension (SBP 220s), nausea and vomiting for overnight observation. Overall, she was having some persistent abdominal discomfort. Dr. Diaz Bowden performed the procedure. The case is scheduled to be discussed at '[facility] Tumor [facility] again. hydrocodone/acet oozy, and with left lower back and - Patient Self-Reported Symptoms SR Constitution: Weight loss/gain, Fatigue/Malaise SR eye issues: Vision changes SR ears, nose, mouth, throat issues: Ears ringing, Difficulty swallowing, Mouth sores SR respiratory issues: Shortness of breath SR Cardiovascular issues: Chest pain, discomfort, tightness, Shortness of breath with activity or lying flat, Dizzy/lightheaded SR Gastrointestinal issues: Poor or no appetite, Nausea, Vomiting SR Genitourinary issues: Frequent urination SR Musculoskeletal issues: Difficulty walking SR Neuro issues: Lightheaded/dizzy, Numbness or tingling, Difficulty balancing SR Hematologic issues: Bleeding/bruising SR Endocrine issues: Cold intolerance, Heat intolerance - Additional ROS All systems PM: reviewed and no additional remarkable complaints except as stated Home Medications and Allergies Home Medications Medication Instructions Recorded Confirmed Type ASPIRIN (#ASPIR 81) 81 mg PO Q DAY #0 12/15/11 11/08/18 History VITAMIN D (Vitamin D3) 1,000 unit PO QDAY #0 01/07/12 11/08/18 History VITAMIN B COMPLEX ([id number]) 1 cap PO Q DAY #0 03/08/12 11/08/18 History Disabled Parking #1 each 04/29/18 10/21/18 Rx amlodipine 5 mg tablet 5 mg PO DAILY #90 tab 09/27/18 11/08/18 Rx lisinopril 40 mg tablet 40 mg PO DAILY #90 tab 09/27/18 11/08/18 Rx sorafenib 400 mg PO Q12H #60 tab 10/21/18 Rx gabapentin 300 mg PO DAILY 11/08/18 11/08/18 History oxycodone 5 mg PO Q4-6H PRN #30 ea 11/08/18 Rx Allergies Allergy/AdvReac Type Severity Reaction Status Date / Time Penicillins [PENICILLINS] Allergy Intermediate RASH Verified 09/09/18 09:32 codeine [CODEINE] Allergy Mild ITCHY Verified 09/09/18 09:32 erythromycin base Allergy Mild Verified 09/09/18 09:32 [From ERYTHROCIN] latex [LATEX] Allergy Mild RED SULTANA, Verified 09/09/18 09:32 PAINFUL Sulfa (Sulfonamide Allergy Mild Verified 09/09/18 09:32 Antibiotics) [SULFA (SULFONAMIDE ANTIBIOTICS)] doxycycline AdvReac Intermediate Vomiting Verified 09/09/18 09:32 Exam Vital signs: Last Vital Signs Temp 98.4 F 11/08/18 12:55 Pulse 88 11/08/18 12:55 Resp 18 11/08/18 12:55 BP 148/76 H 11/08/18 12:55 Pulse Ox 97 11/08/18 12:55 ECOG 1 Narrative: Constitutional: Well developed, well nourished, NAD, but appear anxious. She is cooperative. HEENT: EOMI, anicteric sclera. Right jaw area is swollen and tenderness. More prominent than last visit. No erythema. Not warm. Neck: Supple, symmetrical; No palpable thyromegaly and no palpable lymph nodes. Respiratory: No use of accessory muscles. Clear to auscultation, and no wheezes or rales or rubs. Cardiovascular: RRR, S1 and S2 normal, no murmurs gallops or rubs. No JVD. No pitting edema of lower extremities. Abdomen: Soft, non-distended, no palpable organomegaly, no hernia, no palpable masses. Mild tender over right upper abdomen. Lower extremities: No palpable pedal edema. Lymphatic: no palpable lymph nodes in the neck, axillae Neurological: Awake and alert and oriented x3. CN II-XII grossly intact. No focal motor or sensory deficit. Psychiatric: Good judgment, good insight, normal thought process, cooperative Results - Labs Laboratory Last Values WBC 8.2 X10^3/uL (4.5-11.0) 11/03/18 11:20 RBC 4.08 X10^6/uL (4.0-5.2) 11/03/18 11:20 Hgb 13.1 g/dL (12.0-16.0) 11/03/18 11:20 Hct 37.9 % (36-46) 11/03/18 11:20 MCV 93.0 fL (80-100) 11/03/18 11:20 MCH 32.2 PG (26-34) 11/03/18 11:20 MCHC 34.6 % (30-36) 11/03/18 11:20 RDW 13.3 % (11.6-14.8) 11/03/18 11:20 Plt Count 191 X10^3/uL (150-400) 11/03/18 11:20 Neut % (Auto) 78.5 % (50-75) H 11/03/18 11:20 Lymph % (Auto) 11.4 % (25-40) L 11/03/18 11:20 [place] % (Auto) 8.3 % (3-14) 11/03/18 11:20 Eos % (Auto) 1.2 % (2-4) L 11/03/18 11:20 Baso % (Auto) 0.6 % (0-2) 11/03/18 11:20 Neut # (Auto) 6400 /uL (1252-7424) 11/03/18 11:20 Lymph # (Auto) 900 /uL (5890-3864) L 11/03/18 11:20 [place] # (Auto) 700 /uL (0-900) 11/03/18 11:20 Eos # (Auto) 100 /uL (0-450) 11/03/18 11:20 Baso # (Auto) 0 /uL (0-100) 11/03/18 11:20 Sodium 136 mmol/L (137-145) L 11/03/18 11:20 Potassium 5.0 mmol/L (3.4-5.1) 11/03/18 11:20 Chloride 101 mmol/L (98-107) 11/03/18 11:20 Carbon Dioxide 25 mmol/L (22-32) 11/03/18 11:20 BUN 26 mg/dL (7-17) H 11/03/18 11:20 Creatinine 0.80 mg/dL (0.52-1.04) 11/03/18 11:20 Estimated GFR > 60.0 mL/min (>60) 11/03/18 11:20 BUN/Creatinine Ratio 32.5 (6-22) H 11/03/18 11:20 Glucose 113 mg/dL (80-110) H 11/03/18 11:20 Calcium 10.0 mg/dL (8.4-10.2) 11/03/18 11:20 Total Bilirubin 1.0 mg/dL (0.2-1.3) 11/03/18 11:20 AST 198 IU/L (14-36) H 11/03/18 11:20 ALT 118 IU/L (9-52) H 11/03/18 11:20 Alkaline Phosphatase 105 U/L (38-126) 11/03/18 11:20 Total Protein 7.4 g/dL (6.3-8.2) 11/03/18 11:20 Albumin 3.9 g/dL (3.5-5.0) 11/03/18 11:20 Globulin 3.5 g/dL (1.7-4.1) 11/03/18 11:20 Albumin/Globulin Ratio 1.1 (1.0-2.8) 11/03/18 11:20 Alpha Fetoprotein 9367.05 ng/mL (< 6.1) H 11/03/18 11:20 - Imaging Additional studies: Procedures Injection or infusion of other therapeutic or prophylactic substance (07/25/11) Assessment and Plan (1) Hepatocellular carcinoma Patient now is status post yttrium 90 treatment[address] Patient did see Dr. Jersey Guadarrama at [facility] who recommended systemic therapy with Sorafenib 400 mg bid. I discussed with patient about the potential side effects including but not limited to hypertension, [id number] syndrome, rashes, bone marrow suppression. Patient voiced understanding and would like to proceed. Plan: 1. Instructed her to start Sorafenib 400 mg bid today 2. Radiation oncology referral for palliatiave XRT to bone metastasis. 3. RTC MD visit in 2 weeks, CBC, CMP, AFP. (2) Jaw inflammation, right Bx proved that the right mandibular jaw mass is consistent with metastatic HCC. Plan: 1. Radiation Oncology urgent referral for palliative XRT to bone metastasis (3) Chronic hepatitis C virus infection The patient has been followed by Dr. Elias Lam for treatment of hepatitis C. Clinically stable at this point in time. (4) Liver cirrhosis On exam today no evidence of splenomegaly, bleeding, or varicose veins of the distal esophagus. Cont as per VM.
--- NOTE | 2018-11-08 13:22 | ONC.NAV ---
Description: Care Coordination, Resources Activity: Met with pt to assess coping and support needs. Pt states that she has not received any calls or updates about her referral for radiation oncology. Dr. Zelaya has been discussing this, and today his MA is working to clarify where we are at with this referral. The size of her jaw tumor is observably larger, and she states that she can no longer eat/chew food, that she has intractable pain with the level of pain medication currently being used, and her ear feels clogged, and she is having difficulty hearing out of it now. She feels tearful and frustrated, and feels that she has been waiting too long now to begin treatment. R D ENGINEER offered reassurance and emotional/coping support. Pt decided that she may benefit from trying medical cannabis as a way to cope with these symptoms. R D ENGINEER completed a medical marijuana authorization form, signed by Dr. Zelaya, which patient will take with her today after her appointment. R D ENGINEER also put together a bag of various flavors of Ensure samples for the patient to try. No further needs are identified at this time. Plan: Continue to provide ongoing support for coping and adjustment to treatment/disease progression.
--- NOTE | 2018-11-11 09:49 | ONC.NAV ---
Description: T/C re: radiation referral Activity: MASTER OCEAN called pt to clarify if she has been contacted by [facility], which she has, and her appt. is set for 11/16. She sounded much more calm and no longer feeling distressed about waiting for this to get started. MASTER OCEAN encouraged her to call should she need any further assistance.
--- NOTE | 2018-11-16 17:30 | PC.NURSE ---
Patient called in requesting refill of oxycodon stating 5 tablets left. She states experiencing pain up to 9 in left groin with movement, and pain and swelling in jaw. Also that Dr. Chase is suggesting she take an oxycodon before the radiation treatments to jaw which are soon to start. Need for prescription communicated to Dr. Poon per NR.RXB.
--- NOTE | 2018-11-17 11:20 | PC.NURSE ---
Call made to patient informing her that she can peanut picker her oxycodon prescription and obtain a copy of her last lab results. Patient stated that her son would be coming in to peanut picker prescription.
--- NOTE | 2018-11-18 10:50 | ONC.SCHED ---
Pt Buddy 11/18/18 Rad Onc-treatment to begin within next 2 weeks
--- NOTE | 2018-11-22 09:41 | P.PNONC_ITS ---
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 Patient started taking sorafenib on November 08, 2018. Patient said that she has tolerated very well. Patient has a diary of daily activities and medications. From the diary, patient is taking pain me dications a lot more often and regular because of the right-sided jaw pain. Patient was having significant difficulties chewing. Patient currently is managing liquids including Ensure and [place]. However patient said that she is still losing weight. He denies any fever or chills. In addition patient is complaining left upper shoulder pain. Patient said that the pain sometimes radiate to the left groin like a stab. Patient's note using a cane for stability. Patient saw Dr. Ruddy Tello at the [facility] on 11/16/2018. Patient will start radiation treatment to the right jaw this week. History of Present Illness Ms. Katie Rucker is a 62 year old female with extensive multiple medical problems most notable for hypertension, hepatitis C, hypertension, cirrhosis, peripheral artery disease, and intracranial aneurysm status post surgery. As far as hepatitis C is concerned, patient was diagnosed in 2000. Patient used to use intravenous drug in the 60s. That could be a potential source of her hepatitis C infection. After diagnosis of hepatitis C, patient has received treatment with interferon and ribavirin at [facility] in 2001, and was not successful. She has not been treated with anti viral medications for example Harvoni. In 2012 patient was found to have a liver nodule and she underwent CT-guided biopsy of a 1.5 cm liver nodule in the right lobe of the liver. The final pathology showed no evidence of malignancy but active hepatitis and cirrhosis. I believe during the follow-up visit in November of 2016 the ultrasound study revealed a 2 x 1.4 x 1.8 cm hypoechoic lesion in the anterior right liver, which was not present on ultrasound study of 2016. On May 19, 2017 patient underwent needle core biopsy of the liver lesion and the surgical pathology showed moderately differentiated hepatocellular carcinoma. According to Dr. Whittington's progress note, the AFP level was within the normal range at the time. After the diagnosis of hepatocellular carcinoma, patient underwent interventional radiofrequency ablative therapy in June of 2017. Patient recalled that the surgical procedure was quite dramatic. Patient was having lots of pain in the right upper abdomen as well as in the right shoulder. Eventually patient recovered from the procedure. Patient presents here today because she was not happy with the care at the [facility] and would like to see a different opinion. She is complaining there is no follow-up and there is no CT scan ordered. According to Dr. Whittington note, patient received a $35,000 bill from [facility] regarding the ablation. Patient also is trying to pay off other bills. The pt was seen by her PCP was seen by Dr. Ruddy Qiu recently. CT scan of the abdomen with and without contrast was performed on March 16, 2018. The CT scan showed fluid collection in the posterior right hepatic lobe in segment 7 consistent with post treatment changes from reported prior RFA. An enhancing adjacent hypervascular lesion with washout was noted consistent with residual or recurrent hepatocellular carcinoma. An additional mass in segment 6 demonstrating areas of washout with internal foci of hypervascular enhancement also thought to be consistent with hepatocellular carcinoma. Multiple additional small hypervascular foci in the liver without definite associated washout are thought to be nonspecific. On Jul 22, 2018, the patient underwent Y90 radioembolization at [facility].Immediately after Y90, she was hospitalized for hypertension (SBP 220s), nausea and vomiting for overnight observation. Overall, she was having some persistent abdominal discomfort. Dr. Diaz Bowden performed the procedure. The case is scheduled to be discussed at [facility] again. 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 She was referred to Dr. Michelle who did biopsy of the right mandibular mass. The pathology is consistent with metastatic HCC. - Patient Self-Reported Symptoms SR Constitution: Weight loss/gain, Fatigue/Malaise SR eye issues: Vision changes SR ears, nose, mouth, throat issues: Ears ringing, Difficulty swallowing, Mouth sores SR respiratory issues: Shortness of breath SR Cardiovascular issues: Chest pain, discomfort, tightness, Shortness of breath with activity or lying flat, Dizzy/lightheaded SR Gastrointestinal issues: Poor or no appetite, Nausea, Vomiting SR Genitourinary issues: Frequent urination SR Musculoskeletal issues: Difficulty walking SR Neuro issues: Lightheaded/dizzy, Numbness or tingling, Difficulty balancing SR Hematologic issues: Bleeding/bruising SR Endocrine issues: Cold intolerance, Heat intolerance - Additional ROS All systems PM: reviewed and no additional remarkable complaints except as stated Home Medications and Allergies Home Medications Medication Instructions Recorded Confirmed Type ASPIRIN (#ASPIR 81) 81 mg PO Q DAY #0 12/15/11 11/22/18 History VITAMIN D (Vitamin D3) 1,000 unit PO QDAY #0 01/07/12 11/22/18 History VITAMIN B COMPLEX ([id number]) 1 cap PO Q DAY #0 03/08/12 11/22/18 History Disabled Parking #1 each 04/29/18 11/22/18 Rx amlodipine 5 mg tablet 5 mg PO DAILY #90 tab 09/27/18 11/22/18 Rx lisinopril 40 mg tablet 40 mg PO DAILY #90 tab 09/27/18 11/22/18 Rx sorafenib 400 mg PO Q12H #60 tab 10/21/18 11/22/18 Rx gabapentin 300 mg PO DAILY 11/08/18 11/22/18 History oxycodone 5 mg PO Q4-6H PRN #30 ea 11/16/18 11/22/18 Rx Allergies Allergy/AdvReac Type Severity Reaction Status Date / Time Penicillins [PENICILLINS] Allergy Intermediate RASH Verified 09/09/18 09:32 codeine [CODEINE] Allergy Mild ITCHY Verified 09/09/18 09:32 erythromycin base Allergy Mild Verified 09/09/18 09:32 [From ERYTHROCIN] latex [LATEX] Allergy Mild RED SULTANA, Verified 09/09/18 09:32 PAINFUL Sulfa (Sulfonamide Allergy Mild Verified 09/09/18 09:32 Antibiotics) [SULFA (SULFONAMIDE ANTIBIOTICS)] doxycycline AdvReac Intermediate Vomiting Verified 09/09/18 09:32 Exam Vital signs: Last Vital Signs Temp 96.8 F L 11/22/18 09:48 Pulse 73 11/22/18 09:48 Resp 16 11/22/18 09:48 BP 146/73 H 11/22/18 09:48 Pulse Ox 100 11/22/18 09:48 ECOG 1 Narrative: Constitutional: Well developed, well nourished, NAD, but appear anxious. She is cooperative. HEENT: EOMI, anicteric sclera. Right jaw area is swollen and tenderness. More prominent than last visit. No erythema. Not warm. Neck: Supple, symmetrical; No palpable thyromegaly and no palpable lymph nodes. Respiratory: No use of accessory muscles. Clear to auscultation, and no wheezes or rales or rubs. Cardiovascular: RRR, S1 and S2 normal, no murmurs gallops or rubs. No JVD. No pitting edema of lower extremities. Abdomen: Soft, non-distended, no palpable organomegaly, no hernia, no palpable masses. Mild tender over right upper abdomen. Lower extremities: No palpable pedal edema. Lymphatic: no palpable lymph nodes in the neck, axillae Neurological: Awake and alert and oriented x3. CN II-XII grossly intact. No focal motor or sensory deficit. Psychiatric: Good judgment, good insight, normal thought process, cooperative Results - Labs Laboratory Last Values WBC 8.2 X10^3/uL (4.5-11.0) 11/03/18 11:20 RBC 4.08 X10^6/uL (4.0-5.2) 11/03/18 11:20 Hgb 13.1 g/dL (12.0-16.0) 11/03/18 11:20 Hct 37.9 % (36-46) 11/03/18 11:20 MCV 93.0 fL (80-100) 11/03/18 11:20 MCH 32.2 PG (26-34) 11/03/18 11:20 MCHC 34.6 % (30-36) 11/03/18 11:20 RDW 13.3 % (11.6-14.8) 11/03/18 11:20 Plt Count 191 X10^3/uL (150-400) 11/03/18 11:20 Neut % (Auto) 78.5 % (50-75) H 11/03/18 11:20 Lymph % (Auto) 11.4 % (25-40) L 11/03/18 11:20 [place] % (Auto) 8.3 % (3-14) 11/03/18 11:20 Eos % (Auto) 1.2 % (2-4) L 11/03/18 11:20 Baso % (Auto) 0.6 % (0-2) 11/03/18 11:20 Neut # (Auto) 6400 /uL (6334-1838) 11/03/18 11:20 Lymph # (Auto) 900 /uL (4026-2033) L 11/03/18 11:20 [place] # (Auto) 700 /uL (0-900) 11/03/18 11:20 Eos # (Auto) 100 /uL (0-450) 11/03/18 11:20 Baso # (Auto) 0 /uL (0-100) 11/03/18 11:20 Sodium 136 mmol/L (137-145) L 11/03/18 11:20 Potassium 5.0 mmol/L (3.4-5.1) 11/03/18 11:20 Chloride 101 mmol/L (98-107) 11/03/18 11:20 Carbon Dioxide 25 mmol/L (22-32) 11/03/18 11:20 BUN 26 mg/dL (7-17) H 11/03/18 11:20 Creatinine 0.80 mg/dL (0.52-1.04) 11/03/18 11:20 Estimated GFR > 60.0 mL/min (>60) 11/03/18 11:20 BUN/Creatinine Ratio 32.5 (6-22) H 11/03/18 11:20 Glucose 113 mg/dL (80-110) H 11/03/18 11:20 Calcium 10.0 mg/dL (8.4-10.2) 11/03/18 11:20 Total Bilirubin 1.0 mg/dL (0.2-1.3) 11/03/18 11:20 AST 198 IU/L (14-36) H 11/03/18 11:20 ALT 118 IU/L (9-52) H 11/03/18 11:20 Alkaline Phosphatase 105 U/L (38-126) 11/03/18 11:20 Total Protein 7.4 g/dL (6.3-8.2) 11/03/18 11:20 Albumin 3.9 g/dL (3.5-5.0) 11/03/18 11:20 Globulin 3.5 g/dL (1.7-4.1) 11/03/18 11:20 Albumin/Globulin Ratio 1.1 (1.0-2.8) 11/03/18 11:20 Alpha Fetoprotein 9367.05 ng/mL (< 6.1) H 11/03/18 11:20 - Imaging Additional studies: Procedures Injection or infusion of other therapeutic or prophylactic substance (07/25/11) Assessment and Plan (1) Hepatocellular carcinoma Overview: 63 year old with advanced hepatocellular carcinoma with metastasis to the right jaw bone. Patient started sorafenib on 11/08/2018. Up until now patient has tolerated very well. patient has also been evaluated by Dr. Ruddy tello for palliative radiotherapy to the right jaw. Plan: 1. Continue Sorafenib 400 mg bid daily 2. F/u with Dr. Ruddy Tello for palliatiave XRT to bone metastasis. 3. RTC MD visit in 2 weeks, CBC, CMP, AFP. (2) Jaw inflammation, right Bx proved that the right mandibular jaw mass is consistent with metastatic HCC. Plan: 1. Palliative XRT this week (3) Chronic hepatitis C virus infection The patient has been followed by Dr. Elias Lam for treatment of hepatitis C. Clinically stable at this point in time. (4) Liver cirrhosis On exam today no evidence of splenomegaly, bleeding, or varicose veins of the distal esophagus. Cont as per VM.
[2018-11-22 09:48] VITALS: BP 146/73; PULSE 73; RESP 16; TEMP 36; O2SAT 100
--- NOTE | 2018-11-22 12:47 | ONC.MSW ---
Description: DME need: walker and a cane Activity: Met with pt to clarify what DME she was needing. She indicated a (9) on her distress screening today, expressing worry, depression, and needing more help at home with chores. In meeting with her, she is feeling sad and depressed about her disease progression. She has an appt. with radiation oncology to determine if she is a candidate for palliative radiation to her right jaw, however is becoming more physically debilitated than she had been previously. Pt was found to be using an upside down golf club as a cane. COREMAKER HELPER offered to try to look for both a cane and a forward wheeled walker for her from a local [employer]. She acknowledges that borrowing these items would be better than needing to out and purchase them. Plan: COREMAKER HELPER left a message for Rashid here in [place] with this inquiry. Will call pt back once [facility] returns COREMAKER HELPER call.
--- NOTE | 2018-11-30 10:06 | PC.NURSE ---
Addendum entered by Connie Gomez R.N. 11/30/18 16:50: Pt's son was able to bring patient in for IV fluids and antiemetics today. He came to [facility] pain med and stated he could get his mom (per front staff) to bring her here. Pt arrived and standing orders for nausea/vomiting were initiated. Labs drawn and results noted. Have not heard back from Dr Zelaya about calling in script for nausea medication. Will follow up tomorrow. Pt is coming to receive fluids and antinausea meds tomorrow. Addendum entered by Connie Gomez R.N. 11/30/18 10:35: Spoke with rad onc nurse at [facility] to let her know what's going on with patient. So they are aware. Spoke with Raeann, woodworker who will be arranging a ride for pt to get here to the cancer center today for IV fluids and antinausea meds. Pt stated she was willing to come. Awaiting response from Dr Zelaya regarding outpatient script for nausea. Original Note: Triage note: phoned pt to let her know that her pain med prescription is ready to be picked up. Pt states son will be picking it up. Pt c/o ongoing nausea/vomiting with the inability to keep even liquids down. Does not have anything at home for nausea. Encouraged pt to come in for IV fluids and antinausea meds. Pt states she is unable to today but that she can tomorrow. Will have her come in tomorrow at 10 am for IV fluids and antinausea meds. Will contact Dr Zelaya at [facility] to let him know pt condition and to request antiemetic for home use. Will let rad onc know of plan.
[2018-11-30 11:21] VITALS: BP 167/77; PULSE 77; RESP 16; TEMP 37.2
[2018-11-30] MEDS: ONDANSETRON 8 MG in SODIUM CHLORIDE 0.9% 50 ML 216 ML IV (11:33)
[2018-11-30] MEDS: SODIUM CHLORIDE 0.9% 1,000 ML 1000 ML IV (11:34)
[2018-11-30 11:39] LABS: Add Manual Diff / Slide Review NO; Basophils Absolute Auto 100 /uL (0-100); Basophils Percent Auto 0.8 % (0-2); Eosinophils Absolute Auto 100 /uL (0-450); Eosinophils Percent Auto 0.7 % (2-4); Hematocrit 41.1 % (36-46); Hemoglobin 13.7 g/dL (12.0-16.0); Lymphocytes Absolute Auto 500 /uL (1100-4500); Lymphocytes Percent Auto 5.5 % (25-40); Mean Corpuscular HGB Conc 33.3 % (30-36); Mean Corpuscular Hemoglobin 31.6 PG (26-34); Mean Corpuscular Volume 94.7 fL (80-100); Monocytes Absolute Auto 600 /uL (0-900); Monocytes Percent Auto 6.6 % (3-14); Neutrophils Absolute Auto 7300 /uL (1500-7000); Neutrophils Percent Auto 86.4 % (50-75); Platelet Count 202 X10^3/uL (150-400); Red Blood Cell Count 4.34 X10^6/uL (4.0-5.2); Red Cell Distribution Width 14.9 % (11.6-14.8); White Blood Cell Count 8.5 X10^3/uL (4.5-11.0)
[2018-11-30 11:52] LABS: Alanine Aminotransferase 58 IU/L (9-52); Albumin Globulin Ratio 1.1 (1.0-2.8); Alkaline Phosphatase 94 U/L (38-126); Aspartate Aminotransferase 190 IU/L (14-36); Bilirubin Total 2.3 mg/dL (0.2-1.3); Blood Urea Nitrogen 40 mg/dL (7-17); Calcium 10.2 mg/dL (8.4-10.2); Carbon Dioxide 23 mmol/L (22-32); Chloride 97 mmol/L (98-107); Estimated Glomerular Filt Rate 55.6 mL/min (>60); Globulin 3.6 g/dL (1.7-4.1); Glucose 88 mg/dL (80-110); HEMOLYSIS < 15 (0-50); Magnesium 2.1 mg/dL (1.6-2.3); Potassium 4.7 mmol/L (3.4-5.1); Sodium 134 mmol/L (137-145); Total Protein 7.6 g/dL (6.3-8.2)
--- NOTE | 2018-12-01 09:17 | PC.NURSE ---
Prescription for Compazine 10mg q 6hrs prn, 60 tabs called into [facility] for patient per Dr. Zelaya's order of 11/30/18 for nauseau and vomiting. Patient krystin be informed when she is in infusion room today for fluids.
[2018-12-01] MEDS: ONDANSETRON 8 MG in SODIUM CHLORIDE 0.9% 50 ML 216 ML IV (11:02)
[2018-12-01] MEDS: SODIUM CHLORIDE 0.9% 1,000 ML 1000 ML IV (11:06)
[2018-12-01 11:23] VITALS: BP 136/75; PULSE 65; RESP 16; TEMP 36.6; O2SAT 100
--- NOTE | 2018-12-16 10:45 | ONC.MSW ---
*Sent bereavement card.
== END ==
PROVIDERS: Family Provider Internal Medicine; PCP Internal Medicine; Visit Provider Internal Medicine Hematology & Oncology
DX: C22.0 Liver cell carcinoma (principal); C79.51 Secondary malignant neoplasm of bone
CPT/HCPCS: 36415; 80053; 82105; 83735; 85025; 96360; 96361; 96374; 96375; 99205; 99214; 99215; J2405

== ENCOUNTER 2018-12-11 11:55 | Emergency (ER) | payer MEDICARE, SELFPAY ==
[2018-12-11] VITALS (9 sets, daily range): BP systolic 95–138; BP diastolic 40–54; PULSE 69–78; RESP 13–34; TEMP 36.7; O2SAT 95–100; BMI 23.2
--- NOTE | 2018-12-11 12:36 | ED.NAVMDI ---
HPI - Nausea/Vomiting/Diarrhea General Chief complaint: Nausea/Vomiting/Diarrhea Stated complaint: DEHYDRATED/TROUBLE SWALLOWING Time Seen by Provider: 12/11/18 12:41 Source: patient Mode of arrival: wheelchair Limitations: no limitations History of Present Illness HPI Narrative: This is a 63-year-old female comes emergency department with request for fluids. Patient has been having difficulty with swallowing. She is currently receiving chemo and radiation to the throat for cancer. She has metastases to the draw, patient has known liver cancer is her primary. Patient states she has been having some difficulty with swallowing. She has been drinking as much. She has been requiring some additional help for transferring. Patient states that her pain is okay as far as being controlled. She is taking oxycodone. She states that she has been vomiting occasionally. She has not had much stool output. She has been urinating she states it looks sort of yellow. She denies any shortness of breath currently. She states she hurts all over. She is due for some pain medication. Related Data Home Medications Medication Instructions Recorded Confirmed ASPIRIN (#ASPIR 81) 81 mg PO Q DAY #0 12/15/11 11/22/18 VITAMIN D (Vitamin D3) 1,000 unit PO QDAY #0 01/07/12 11/22/18 VITAMIN B COMPLEX ([id number]) 1 cap PO Q DAY #0 03/08/12 11/22/18 gabapentin 300 mg PO DAILY 11/08/18 11/22/18 prochlorperazine maleate 10 mg PO Q6-8H PRN 12/01/18 12/01/18 [Compazine] Previous Rx's Medication Instructions Recorded Disabled Parking #1 each 04/29/18 amlodipine 5 mg tablet 5 mg PO DAILY #90 tab 09/27/18 lisinopril 40 mg tablet 40 mg PO DAILY #90 tab 09/27/18 sorafenib 400 mg PO Q12H #60 tab 10/21/18 oxycodone 5 mg PO Q4-6H PRN #30 ea 11/29/18 oxycodone 5 mg PO Q4-6H PRN #100 ml 12/11/18 Allergies Allergy/AdvReac Type Severity Reaction Status Date / Time Penicillins [PENICILLINS] Allergy Intermediate RASH Verified 12/11/18 12:12 codeine [CODEINE] Allergy Mild ITCHY Verified 12/11/18 12:12 erythromycin base Allergy Mild Verified 12/11/18 12:12 [From ERYTHROCIN] latex [LATEX] Allergy Mild RED SULTANA, Verified 12/11/18 12:12 PAINFUL Sulfa (Sulfonamide Allergy Mild Verified 12/11/18 12:12 Antibiotics) [SULFA (SULFONAMIDE ANTIBIOTICS)] doxycycline AdvReac Intermediate Vomiting Verified 12/11/18 12:12 Review of Systems Review of Systems ROS Unobtainable: All systems reviewed & are unremarkable except as noted in HPI and below Constitutional Denies chills, Denies fever(s), Denies lethargy and Reports weakness ENT Ears, Nose, Mouth, and Throat: Reports as per HPI, Reports dysphagia and Denies throat swelling Cardiovascular Denies chest pain, Denies rapid heart rate, Reports pedal edema, Denies dyspnea and Reports dyspnea on exertion Respiratory Denies change in phlegm color, Denies chest congestion, Reports cough, Denies excessive phlegm production, Denies dyspnea, Reports dyspnea on exertion, Denies stridor and Denies wheezing Gastrointestinal Gastrointestinal: Reports constipation (Patient is having flatus), Reports dysphagia, Denies diarrhea, Reports nausea and Reports vomiting Genitourinary Denies urinary frequency, Denies dysuria, Denies urinary hesitancy and Denies urinary urgency Musculoskeletal Reports other (Bony pain for cancer) Neurologic Reports weakness Allergic/Immunologic Denies throat swelling and Denies wheezing [facility] Medical History Hepatocellular carcinoma (Chronic) Essential hypertension (Chronic 09/01/13) Mixed hyperlipidemia (Chronic 10/02/15) H/O migraine (Chronic) Chronic hepatitis C virus infection (Chronic 09/16/11) History of subarachnoid hemorrhage (Inactive 09/16/11) Anemia (Chronic) Anxiety (Chronic) Asthma (Chronic) Chronic cough (Chronic) Chronic headaches (Chronic) Cirrhosis (Chronic 2000) Depression (Chronic) Hayfever (Chronic) Hemorrhoids (Chronic) Hepatitis C (Chronic) History of recurrent ear infection (Chronic) Hypertension (Chronic) Liver disease (Chronic) Ocular migraine (Chronic) PTSD (post-traumatic stress disorder) (Chronic) Peripheral vascular disease (Chronic) Recurrent sinusitis (Chronic) Substance abuse (Chronic) Urinary incontinence (Chronic) Vertigo (Chronic) Aneurysm (Resolved 2011) Chicken pox (Resolved) Genital warts (Resolved) History of heavy periods (Resolved) Measles (Resolved) Mumps (Resolved) Painful menstrual periods (Resolved) SAH (subarachnoid hemorrhage) (Resolved 2011) Family History Brother Age: 70 Fam hx-ischem heart disease Diabetes mellitus Heart disease Brother Age: 61 Diabetes mellitus Heart disease Hepatitis C Kidney transplant status Father Fam hx-ischem heart disease Family history of prostate cancer Cancer Diabetes mellitus Heart disease Hypertension High cholesterol Mother Fam hx-ischem heart disease Family history of lymphoma Cancer Heart disease High cholesterol Grandmother Cancer Grandmother No problems noted. Grandfather Stroke Aneurysm Social History Smoking Status: Former smoker Exam Narrative Exam Narrative: GEN: Thin elderly female, alert and oriented x 3, patient appears to be in mild distress. HEENT: Atraumatic, pupils are equal round reactive to light, extraocular movements are intact, nares are clear, patient has dry mucous membranes patient has swelling of the right side of the face and jaw sitting a little bit into the neck. HEART: Regular rate and rhythm without murmur, clicks, rubs. Pulses are equal in upper and lower extremities LUNGS:Lungs clear to auscultation, no wheezes, rales, crackles, chest moves symmetrically ABD:bowel sounds normal, soft, non-tender, no guarding, rebound, rigidity, no masses noted, no hepatosplenomegaly :No CVA tenderness MSCL: Non-tender, no muscle atrophy, muscles strength 5/5 upper and lower extremities, full range of motion. NEURO:CN 2-12 intact, sensation normal. SKIN: The patient appears pale Initial Vital Signs Initial Vital Signs: Vital Signs Temperature 98.0 F 12/11/18 12:10 Pulse Rate 75 12/11/18 12:10 Respiratory Rate 13 12/11/18 12:10 Blood Pressure 138/50 L 12/11/18 12:10 Pulse Oximetry 100 12/11/18 12:10 Course Orders Ordered: ED Orders 12/11/18 12:30 Complete Blood Count AUTO DIFF Stat Comprehensive Metabolic Panel Stat Lipase Stat Discontinued Medications Acetaminophen (Tylenol) 975 mg PO NOW ONE Stop: 12/11/18 15:52 Last Admin: 12/11/18 16:12 Dose: Not Given Hydromorphone HCl (Dilaudid) 0.5 mg IV NOW ONE Stop: 12/11/18 13:19 Last Admin: 12/11/18 13:23 Dose: 0.5 mg Sodium Chloride (Normal Saline 0.9%) 1,000 mls @ 1,000 mls/hr IV BOLUS ONE Stop: 12/11/18 14:08 Last Infusion: 12/11/18 14:27 Dose: 0 mls/hr Admin: 12/11/18 13:15 Dose: 1,000 mls/hr Sodium Chloride (Normal Saline 0.9%) 1,000 mls @ 1,000 mls/hr IV BOLUS ONE Stop: 12/11/18 15:26 Last Infusion: 12/11/18 16:04 Dose: 0 mls/hr Admin: 12/11/18 14:30 Dose: 1,000 mls/hr Ondansetron HCl (Zofran) 4 mg IV NOW ONE Stop: 12/11/18 13:19 Last Admin: 12/11/18 13:23 Dose: 4 mg Vital Signs - 8 hr 12/11/18 12:10 12/11/18 12:36 12/11/18 13:00 Temperature 98.0 F Pulse Rate 75 72 69 Respiratory Rate 13 19 34 H Blood Pressure 138/50 L Blood Pressure [Right Arm] 117/43 L 95/54 L Pulse Oximetry 100 98 100 12/11/18 13:30 12/11/18 14:00 12/11/18 14:30 Temperature Pulse Rate 70 70 72 Respiratory Rate 16 15 25 H Blood Pressure Blood Pressure [Right Arm] 121/40 L 109/48 L 112/48 L Pulse Oximetry 97 97 99 12/11/18 15:00 12/11/18 15:30 12/11/18 16:30 Temperature Pulse Rate 77 69 78 Respiratory Rate 18 16 14 Blood Pressure Blood Pressure [Right Arm] 123/50 L 125/49 L 103/54 L Pulse Oximetry 96 96 95 MDM - Nausea/Vomiting/Diarrhea Lab Data Attestation: I reviewed the patient's lab results. Result diagrams: 12/11/18 12:30 12/11/18 12:30 Lab Results 12/11/18 12/11/18 Range/Units 12:30 12:30 WBC 6.1 (4.5-11.0) X10^3/uL RBC 3.67 L (4.0-5.2) X10^6/uL Hgb 11.9 L (12.0-16.0) g/dL Hct 34.7 L (36-46) % MCV 94.5 (80-100) fL MCH 32.4 (26-34) PG MCHC 34.3 (30-36) % RDW 16.6 H (11.6-14.8) % Plt Count 159 (150-400) X10^3/uL Neut % (Auto) 73.8 (50-75) % Lymph % (Auto) 14.8 L (25-40) % [place] % (Auto) 9.3 (3-14) % Eos % (Auto) 0.1 L (2-4) % Baso % (Auto) 2.0 (0-2) % Lymph # (Auto) Not Reportable [place] # (Auto) Not Reportable Baso # (Auto) Not Reportable Platelet Estimate Adequate on smear RBC Morphology Not Reportable Poikilocytosis 1+ H Anisocytosis 1+ H Sodium 135 L (137-145) mmol/L Potassium 5.1 (3.4-5.1) mmol/L Chloride 102 (98-107) mmol/L Carbon Dioxide 23 (22-32) mmol/L BUN 55 H (7-17) mg/dL Creatinine 1.30 H (0.52-1.04) mg/dL Estimated GFR 41.1 L (>60) mL/min BUN/Creatinine Ratio 42.3 H (6-22) Glucose 86 (80-110) mg/dL Calcium 11.1 H (8.4-10.2) mg/dL Total Bilirubin 3.8 H (0.2-1.3) mg/dL AST 225 H (14-36) IU/L ALT 49 (9-52) IU/L Alkaline Phosphatase 89 (38-126) U/L Total Protein 6.7 (6.3-8.2) g/dL Albumin 3.3 L (3.5-5.0) g/dL Globulin 3.4 (1.7-4.1) g/dL Albumin/Globulin Ratio 1.0 (1.0-2.8) Lipase 415 H (23-300) U/L MDM Narrative Medical decision making narrative: Discussed with patient she would like to return home. She is having a lot of trouble swallowing any sort of pills. We did discuss oxycodone she could do a liquid solution. She is asking about her sorafenib, discussed with pharmacy they did states she can put and a glass, mixed with water let sit for 5 minutes and then stir for 10 minutes and this would allow to become a solution and this would be possible. I gave this in written form to the patient and the son. We also gave gloves in case there needs to be any protection from the medication. Discussed with patient she can return at any time. We also discussed she should stop her lisinopril because her kidney functions a little decreased. She expressed the understanding that she should stop that. Discharge Plan Departure Patient Disposition: Home Clinical Impression: Dehydration, Acute kidney injury Instructions: DI for Dehydration -- Adult Activity Restrictions/Additional Instructions: Follow up Thursday morning with your oncology office. Continue home medications as prescribed, stop lisinopril You may use the oxycodone solution, 5 mL every 4-6 hours as needed for pain. Return to the emergency department for fevers greater than 100.4 F, worsening symptoms, inability to swallow liquids, if you are having decreased or no urine output, persistent vomiting, black or bloody stools, passing out, new chest pain or shortness of breath or other new or concerning symptoms. Prescriptions: New oxycodone 5 mg/5 mL solution 5 mg PO Q4-6H PRN (Reason: pain) Qty: 100 RF: 0 No Action ASPIRIN (#ASPIR 81) 81 mg PO Q DAY Qty: 0 RF: 0 VITAMIN D (Vitamin D3) 1,000 unit PO QDAY Qty: 0 RF: 0 VITAMIN B COMPLEX ([id number]) 1 cap PO Q DAY Qty: 0 RF: 0 Disabled Parking Qty: 1 RF: 0 amlodipine 5 mg tablet 5 mg PO DAILY Qty: 90 RF: 3 lisinopril 40 mg tablet 40 mg PO DAILY Qty: 90 RF: 3 sorafenib 200 mg Tablet 400 mg PO Q12H Qty: 60 RF: 11 gabapentin 300 mg Capsule 300 mg PO DAILY RF: 0 oxycodone 5 mg Tablet, Oral Only 5 mg PO Q4-6H PRN (Reason: pain, liver cancer) Qty: 30 RF: 0 prochlorperazine maleate [Compazine] 10 mg Tablet 10 mg PO Q6-8H PRN (Reason: Nausea And Vomiting) RF: 0 Referrals: Chelo Weston MD [Primary Care Provider] -
[2018-12-11] MEDS: SODIUM CHLORIDE 0.9% 1,000 ML 1000 ML IV ×2 (13:15→14:30)
[2018-12-11] MEDS: HYDROMORPHONE 1 MG INJ 0.5 MG IV (13:23)
[2018-12-11] MEDS: ONDANSETRON 4 MG/2 ML INJ IV (13:23)
[2018-12-11 13:27] LABS: Hematocrit 34.7 % (36-46); Hemoglobin 11.9 g/dL (12.0-16.0); Mean Corpuscular HGB Conc 34.3 % (30-36); Mean Corpuscular Hemoglobin 32.4 PG (26-34); Mean Corpuscular Volume 94.5 fL (80-100); Platelet Count 159 X10^3/uL (150-400); Red Blood Cell Count 3.67 X10^6/uL (4.0-5.2); Red Cell Distribution Width 16.6 % (11.6-14.8); White Blood Cell Count 6.1 X10^3/uL (4.5-11.0)
[2018-12-11 13:33] LABS: Alanine Aminotransferase 49 IU/L (9-52); Albumin 3.3 g/dL (3.5-5.0); Alkaline Phosphatase 89 U/L (38-126); Aspartate Aminotransferase 225 IU/L (14-36); BUN Creatinine Ratio 42.3 (6-22); Bilirubin Total 3.8 mg/dL (0.2-1.3); Blood Urea Nitrogen 55 mg/dL (7-17); Calcium 11.1 mg/dL (8.4-10.2); Carbon Dioxide 23 mmol/L (22-32); Chloride 102 mmol/L (98-107); Estimated Glomerular Filt Rate 41.1 mL/min (>60); Globulin 3.4 g/dL (1.7-4.1); Glucose 86 mg/dL (80-110); HEMOLYSIS < 15 (0-50); Lipase 415 U/L (23-300); Potassium 5.1 mmol/L (3.4-5.1); Sodium 135 mmol/L (137-145); Total Protein 6.7 g/dL (6.3-8.2)
[2018-12-11 13:53] LABS: Add Manual Diff / Slide Review NO; Anisocytosis 1+; Eosinophils Percent Auto 0.1 % (2-4); Lymphocytes Percent Auto 14.8 % (25-40); Monocytes Percent Auto 9.3 % (3-14); Neutrophils Percent Auto 73.8 % (50-75); Platelet Estimate Adequate on smear; Poikilocytosis 1+
== END 2018-12-11 16:47 | disposition home or self-care (01) ==
PROVIDERS: Emergency Provider Emergency Medicine; PCP Internal Medicine
DX: E86.0 Dehydration (principal); R13.10 Dysphagia, unspecified; C22.0 Liver cell carcinoma; C79.51 Secondary malignant neoplasm of bone
CPT/HCPCS: 36591; 80053; 83690; 85025; 96361; 96374; 96375; 99284; J1170; J2405

== ENCOUNTER 2018-12-12 23:30 | Inpatient (IN) | payer MEDICARE, SELFPAY ==
[2018-12-12 23:38] VITALS: BP 143/32; PULSE 83; RESP 16; TEMP 36.7; O2SAT 98
--- NOTE | 2018-12-12 23:47 | ED.WEAKNESS ---
HPI - Weakness General Chief complaint: Weakness Stated complaint: Possible Stroke Time Seen by Provider: 12/12/18 23:35 Source: patient and EMS Mode of arrival: EMS Limitations: no limitations History of Present Illness HPI Narrative: 63-year-old female nonsmoker returns to the emergency department for the 2nd time in 2 days. She presents by EMS due to worsening weakness and inability to ambulate since being discharged from the emergency department yesterday.She lives at home with her son whom generally helps her ambulate, take her meds as well as eat and drink. She has not got out of bed in the past 2 days. She has had nothing to eat or drink and cannot keep her medications down. 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 MD Complaint: generalized weakness Onset (ago): day(s) Duration: constant Location: generalized Migration: none Severity: severe Relieving factors: none Associated symptoms: denies other symptoms Related Data Home Medications Medication Instructions Recorded Confirmed ASPIRIN (#ASPIR 81) 81 mg PO Q DAY #0 12/15/11 12/13/18 VITAMIN D (Vitamin D3) 1,000 unit PO QDAY #0 01/07/12 11/22/18 VITAMIN B COMPLEX ([id number]) 1 cap PO Q DAY #0 03/08/12 11/22/18 prochlorperazine maleate 10 mg PO Q6-8H PRN 12/01/18 12/13/18 [Compazine] polyethylene glycol 3350 8.5 g PO PRN PRN 12/13/18 12/13/18 Previous Rx's Medication Instructions Recorded Disabled Parking #1 each 04/29/18 amlodipine 5 mg tablet 5 mg PO DAILY #90 tab 09/27/18 lisinopril 40 mg tablet 40 mg PO DAILY #90 tab 09/27/18 sorafenib 400 mg PO Q12H #60 tab 10/21/18 oxycodone 5 mg PO Q4-6H PRN #30 ea 11/29/18 oxycodone 5 mg PO Q4-6H PRN #100 ml 12/11/18 Allergies Allergy/AdvReac Type Severity Reaction Status Date / Time Penicillins [PENICILLINS] Allergy Intermediate RASH Verified 12/11/18 12:12 codeine [CODEINE] Allergy Mild ITCHY Verified 12/11/18 12:12 erythromycin base Allergy Mild Verified 12/11/18 12:12 [From ERYTHROCIN] latex [LATEX] Allergy Mild RED SULTANA, Verified 12/11/18 12:12 PAINFUL Sulfa (Sulfonamide Allergy Mild Verified 12/11/18 12:12 Antibiotics) [SULFA (SULFONAMIDE ANTIBIOTICS)] doxycycline AdvReac Intermediate Vomiting Verified 12/11/18 12:12 Review of Systems Constitutional Denies chills, Denies fever(s), Reports lethargy, Reports malaise, Reports poor appetite and Reports weakness Eyes Denies change in vision, Denies eye discharge, Denies irritation and Denies loss of vision ENT Ears, Nose, Mouth, and Throat: Denies change in voice, Denies neck pain and Denies sore throat Cardiovascular Denies chest pain, Denies irregular heart rhythm, Denies lightheadedness, Denies palpitations, Denies dyspnea, Denies dyspnea on exertion and Denies orthopnea Respiratory Denies cough, Denies dyspnea, Denies dyspnea on exertion and Denies wheezing Gastrointestinal Gastrointestinal: Denies abdominal pain, Denies change in bowel habits, Denies diarrhea, Reports nausea and Reports vomiting Genitourinary Denies hematuria, Denies flank pain, Denies urinary incontinence and Denies urinary urgency Musculoskeletal Denies neck pain Integumentary/Breasts Denies pruritus, Denies erythema, Denies rash and Denies wounds Neurologic Denies confusion, Denies loss of vision and Reports weakness Psychiatric Denies anxiety, Denies confusion, Denies depression, Denies homicidal ideation and Denies suicidal ideation Endocrine Denies palpitations Hematologic/Lymphatic Denies easy bruising Allergic/Immunologic Denies wheezing [facility] Medical History Hepatocellular carcinoma (Chronic) Essential hypertension (Chronic 09/01/13) Mixed hyperlipidemia (Chronic 10/02/15) H/O migraine (Chronic) Chronic hepatitis C virus infection (Chronic 09/16/11) History of subarachnoid hemorrhage (Inactive 09/16/11) Anemia (Chronic) Anxiety (Chronic) Asthma (Chronic) Chronic cough (Chronic) Chronic headaches (Chronic) Cirrhosis (Chronic 2000) Depression (Chronic) Hayfever (Chronic) Hemorrhoids (Chronic) Hepatitis C (Chronic) History of recurrent ear infection (Chronic) Hypertension (Chronic) Liver disease (Chronic) Ocular migraine (Chronic) PTSD (post-traumatic stress disorder) (Chronic) Peripheral vascular disease (Chronic) Recurrent sinusitis (Chronic) Substance abuse (Chronic) Urinary incontinence (Chronic) Vertigo (Chronic) Aneurysm (Resolved 2011) Chicken pox (Resolved) Genital warts (Resolved) History of heavy periods (Resolved) Measles (Resolved) Mumps (Resolved) Painful menstrual periods (Resolved) SAH (subarachnoid hemorrhage) (Resolved 2011) Surgical History Anesthesia (Resolved) History of angioplasty (Resolved 2010) History of angioplasty (Resolved 2011) History of brain surgery (Resolved 2011) History of nasal septoplasty (Resolved ~1988) History of oral surgery (Resolved 1981) Status post rhinoplasty (Resolved) Status post tonsillectomy and adenoidectomy (Resolved) Status post tubal ligation (Resolved 1983) Family History Brother Age: 70 Fam hx-ischem heart disease Diabetes mellitus Heart disease Brother Age: 61 Diabetes mellitus Heart disease Hepatitis C Kidney transplant status Father Fam hx-ischem heart disease Family history of prostate cancer Cancer Diabetes mellitus Heart disease Hypertension High cholesterol Mother Fam hx-ischem heart disease Family history of lymphoma Cancer Heart disease High cholesterol Grandmother Cancer Grandmother No problems noted. Grandfather Stroke Aneurysm Social History household members: children Smoking Status: Former smoker Family History Brother Age: 70 Fam hx-ischem heart disease Diabetes mellitus Heart disease Brother Age: 61 Diabetes mellitus Heart disease Hepatitis C Kidney transplant status Father Fam hx-ischem heart disease Family history of prostate cancer Cancer Diabetes mellitus Heart disease Hypertension High cholesterol Mother Fam hx-ischem heart disease Family history of lymphoma Cancer Heart disease High cholesterol Grandmother Cancer Grandmother No problems noted. Grandfather Stroke Aneurysm Social History household members: children Smoking Status: Former smoker Exam Narrative Exam Narrative: GENERAL: 63-year-old female appears older than stated age, chronically ill and in obvious distress HEAD: Swollen tender right drop Atraumatic. Normocephalic. No temporal or scalp tenderness. EYES: Pupils equal round and reactive. Extraocular motions intact. No scleral icterus. No injection or drainage. ENT: Dry mucous membranes Nose without bleeding, purulent drainage or septal hematoma. Throat without erythema, tonsillar hypertrophy or exudate. Uvula midline. Airway patent. NECK: Trachea midline. No JVD or lymphadenopathy. Supple, nontender, no meningeal signs. CARDIOVASCULAR: Regular rate and rhythm without murmurs, gallops, or rubs. RESPIRATORY: Clear to auscultation. Breath sounds equal bilaterally. No wheezes, rales, or rhonchi. GASTROINTESTINAL: Abdomen soft, non-tender, nondistended. No hepato-splenomegaly, or palpable masses. No guarding. EXTREMITIES: No clubbing, cyanosis, or edema. No joint tenderness, effusion, or edema noted. BACK: Nontender without deformity or crepitance. No flank tenderness. NEURO: AOx3. SKIN: Poor skin turgor No rash or erythema. Initial Vital Signs Initial Vital Signs: Vital Signs Temperature 98.1 F 12/12/18 23:38 Pulse Rate 83 12/12/18 23:38 Respiratory Rate 16 12/12/18 23:38 Blood Pressure 143/32 H 12/12/18 23:38 Pulse Oximetry 98 12/12/18 23:38 Course Orders Ordered: ED Orders 12/12/18 23:55 Basic Metabolic Panel Stat Complete Blood Count AUTO DIFF Stat 12/13/18 Basic Metabolic Panel Routine Magnesium Routine Phosphorous Routine Procalcitonin Routine 12/13/18 02:06 Consult to Dietitian, Adult Routine 12/13/18 02:07 Consult to Discharge Planning Routine Consult to Heat Treat Technician Routine 12/13/18 02:09 Consult to Speech Therapy Evaluate & Treat 12/13/18 02:10 Consult to Dietitian, Adult Routine 12/13/18 03:50 Urinalysis and Microscopic Stat Urine Culture Stat Enoxaparin Sodium (Lovenox) 40 mg SUBCUT DAILY MASSIMO Hydromorphone HCl (Dilaudid) 0.5 mg IV Q6HR PRN PRN Reason: Pain, Moderate (4-6) Dextrose/Sodium Chloride (Dextrose 5%-0.9% Ns) 1,000 mls @ 100 mls/hr IV CONT MASSIMO Last Admin: 12/13/18 02:30 Dose: 100 mls/hr Naloxone HCl (Narcan) 0.2 mg IV Q2MIN PRN PRN Reason: Opiate Reversal Ondansetron HCl (Zofran) 4 mg IV Q4HR PRN PRN Reason: Nausea And Vomiting Last Admin: 12/13/18 00:10 Dose: 4 mg Ondansetron HCl (Zofran) 4 mg IV Q6HR PRN PRN Reason: Nausea And Vomiting Discontinued Medications Hydromorphone HCl (Dilaudid) 0.5 mg IV NOW ONE Stop: 12/12/18 23:41 Last Admin: 12/13/18 00:11 Dose: 0.5 mg Sodium Chloride (Normal Saline 0.9%) 1,000 mls @ 1,000 mls/hr IV BOLUS ONE Stop: 12/13/18 00:39 Last Infusion: 12/13/18 01:31 Dose: 0 mls/hr Admin: 12/13/18 00:10 Dose: 1,000 mls/hr Vital Signs - 8 hr 12/12/18 23:38 12/13/18 01:49 Temperature 98.1 F 98.0 F Pulse Rate 83 69 Respiratory Rate 16 16 Blood Pressure 143/32 H 111/75 Pulse Oximetry 98 98 MDM - Weakness Lab Data Result diagrams: 12/12/18 23:55 12/12/18 23:55 Lab Results 12/12/18 12/12/18 12/13/18 Range/Units 23:55 23:55 03:50 WBC 5.5 (4.5-11.0) X10^3/uL RBC 3.83 L (4.0-5.2) X10^6/uL Hgb 12.4 (12.0-16.0) g/dL Hct 36.3 (36-46) % MCV 94.8 (80-100) fL MCH 32.5 (26-34) PG MCHC 34.2 (30-36) % RDW 17.4 H (11.6-14.8) % Plt Count 151 (150-400) X10^3/uL Neut % (Auto) Not Reportable Lymph % (Auto) Not Reportable [place] % (Auto) Not Reportable Eos % (Auto) Not Reportable Baso % (Auto) Not Reportable Lymph # (Auto) Not Reportable [place] # (Auto) Not Reportable Baso # (Auto) Not Reportable Total Counted 100 Seg Neutrophils % 79.0 H (38-70) % Band Neutrophils % 3.0 (3-7) % Lymphocytes % (Manual) 11.0 L (25-45) % Monocytes % (Manual) 7.0 (2-11) % Neutrophils # (Manual) 4510 (5973-1661) /uL RBC Morphology See below Anisocytosis 1+ H Sodium 142 (137-145) mmol/L Potassium 5.2 H (3.4-5.1) mmol/L Chloride 108 H (98-107) mmol/L Carbon Dioxide 21 L (22-32) mmol/L BUN 44 H (7-17) mg/dL Creatinine 1.10 H (0.52-1.04) mg/dL Estimated GFR 49.8 L (>60) mL/min BUN/Creatinine Ratio 40.0 H (6-22) Glucose 89 (80-110) mg/dL Calcium 11.4 H (8.4-10.2) mg/dL Urine Color Yellow Urine Appearance Sl cloudy Urine pH 5.0 (4.5-8.0) Ur Specific [place] 1.020 (1.000-1.035) Urine Protein Trace H (Negative) Urine Glucose (UA) Negative (Negative) g/dL Urine Ketones 1+ H (NEGATIVE) Urine Occult Blood Trace-intact (Negative) Urine Nitrate Positive H (Negative) Urine Bilirubin Negative (NEGATIVE) Urine Urobilinogen 0.2 (0.2) E.U./dL Ur Leukocyte Esterase 1+ H (NEGATIVE) Urine RBC Not Reportable Urine WBC 10-30/hpf H (0-5/HPF) Ur Squamous Epith Cells 0-1 /hpf (0-5/HPF) Urine Bacteria Many (>30) H (None) Ur Culture Indicated? Specimen cultured MDM Narrative Medical decision making narrative: Chronically ill patient returns for the 2nd time in 2 days. She has become too weak to get out of bed and her son can no longer help her at home. She has been unable to eat or drink and cannot keep her medications down. She requires hospitalization for stabilization and further evaluation of her condition. She has notes from Dr. Qiu as recently as July but states her PCP is Dr. Chelo Weston. Discharge Plan Departure Patient Disposition: Admitted as Observation Clinical Impression: Essential hypertension, Dehydration Discharge Date/Time: 12/13/18 01:38 Interventions: ED Discharge Assessment Last Done: 12/13/18 01:37 Referrals: Chelo Weston MD [Primary Care Provider] - Admit Date/Time: 12/13/18 01:05 Admit Provider: Jose Perez
[2018-12-13] VITALS (7 sets, daily range): BP systolic 111–148; BP diastolic 69–77; PULSE 67–89; RESP 12–18; TEMP 36–36.9; O2SAT 96–99; BMI 24.0
[2018-12-13 00:01] LABS: Hematocrit 36.3 % (36-46); Hemoglobin 12.4 g/dL (12.0-16.0); Mean Corpuscular HGB Conc 34.2 % (30-36); Mean Corpuscular Hemoglobin 32.5 PG (26-34); Mean Corpuscular Volume 94.8 fL (80-100); Platelet Count 151 X10^3/uL (150-400); Red Blood Cell Count 3.83 X10^6/uL (4.0-5.2); Red Cell Distribution Width 17.4 % (11.6-14.8); White Blood Cell Count 5.5 X10^3/uL (4.5-11.0)
[2018-12-13 00:07] LABS: Add Manual Diff / Slide Review YES
[2018-12-13 00:10] LABS: Blood Urea Nitrogen 44 mg/dL (7-17); Calcium 11.4 mg/dL (8.4-10.2); Carbon Dioxide 21 mmol/L (22-32); Chloride 108 mmol/L (98-107); Estimated Glomerular Filt Rate 49.8 mL/min (>60); Glucose 89 mg/dL (80-110); HEMOLYSIS < 15 (0-50); Potassium 5.2 mmol/L (3.4-5.1); Sodium 142 mmol/L (137-145)
[2018-12-13] MEDS: SODIUM CHLORIDE 0.9% 1,000 ML 1000 ML IV (00:10)
[2018-12-13] MEDS: ONDANSETRON 4 MG/2 ML INJ IV (00:10)
[2018-12-13] MEDS: HYDROMORPHONE 0.5 MG INJ IV (00:11)
[2018-12-13 00:18] LABS: Neutrophils Absolute Manual 4510 /uL (3000-5900); Total Cells Counted 100
[2018-12-13 00:20] LABS: Anisocytosis 1+
--- NOTE | 2018-12-13 02:16 | P.HP_ITS ---
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 The patient was seen on 12/11/2018 with the patient was evaluated and treated for dehydration and acute kidney injury receiving 2 L of IV fluid and Zofran and discharged home in the care of her son. Her son acts as her regular caregiver helping with ADLs and meals. His reported the patient has not gotten out of bed for the last 2 days due to weakness. The patient has recently undergone radiation therapy of the right mandible for metastatic lesions which she indicates is completed. The patient is somewhat somnolent but complains of weakness and pain most prominent in the right jaw and neck and abdomen. She has been able to keep any food, fluids or medications down. She is currently receiving chemotherapy with Sorafenib. Patient denies chest pain or palpitations but does report shortness of breath but denies cough. She has increased secretions which he spits up regularly. She has generalized abdominal pain which he reports as unchanged from typical. She is unable to tell me when her last bowel movement. In the ER the patient is found to be afebrile with a temperature 98.1?, heart rate of 83 and blood pressure of 143/32, respirations 16 and oxygen saturation 98% on room air. In the ER the patient received an additional L of normal saline, Zofran and hydromorphone 0.5 mg. Labs were drawn the patient has a white count of 5.5 with hemoglobin of 12.4 and hematocrit 36.3 with platelets 131. On chemistry shows a sodium 142 and an elevated potassium at 5 2. She has markedly elevated BUN creatinine ratio with BUN of 44 and creatinine 1.1, notably her baseline creatinine is 0.8. Her nonfasting glucose is 89 mg per dL. On CMP drawn on the 1st patient had a total bili of 3.8, AST of 225, ALT 49 and alkaline phosphatase of 39, her lipase is 415. . Her coags have been within normal range. Patient is somewhat somnolent and dehydrated and is admitted for rehydration and management of intractable nausea and vomiting. Patient History Medical History Hepatocellular carcinoma (Chronic) Essential hypertension (Chronic 09/01/13) Mixed hyperlipidemia (Chronic 10/02/15) H/O migraine (Chronic) Chronic hepatitis C virus infection (Chronic 09/16/11) History of subarachnoid hemorrhage (Inactive 09/16/11) Anemia (Chronic) Anxiety (Chronic) Asthma (Chronic) Chronic cough (Chronic) Chronic headaches (Chronic) Cirrhosis (Chronic 2000) Depression (Chronic) Hayfever (Chronic) Hemorrhoids (Chronic) Hepatitis C (Chronic) History of recurrent ear infection (Chronic) Hypertension (Chronic) Liver disease (Chronic) Ocular migraine (Chronic) PTSD (post-traumatic stress disorder) (Chronic) Peripheral vascular disease (Chronic) Recurrent sinusitis (Chronic) Substance abuse (Chronic) Urinary incontinence (Chronic) Vertigo (Chronic) Aneurysm (Resolved 2011) Chicken pox (Resolved) Genital warts (Resolved) History of heavy periods (Resolved) Measles (Resolved) Mumps (Resolved) Painful menstrual periods (Resolved) SAH (subarachnoid hemorrhage) (Resolved 2011) Surgical History Anesthesia (Resolved) History of angioplasty (Resolved 2010) History of angioplasty (Resolved 2011) History of brain surgery (Resolved 2011) History of nasal septoplasty (Resolved ~1988) History of oral surgery (Resolved 1981) Status post rhinoplasty (Resolved) Status post tonsillectomy and adenoidectomy (Resolved) Status post tubal ligation (Resolved 1983) Family History Brother Age: 70 Fam hx-ischem heart disease Diabetes mellitus Heart disease Brother Age: 61 Diabetes mellitus Heart disease Hepatitis C Kidney transplant status Father Fam hx-ischem heart disease Family history of prostate cancer Cancer Diabetes mellitus Heart disease Hypertension High cholesterol Mother Fam hx-ischem heart disease Family history of lymphoma Cancer Heart disease High cholesterol Grandmother Cancer Grandmother No problems noted. Grandfather Stroke Aneurysm Social History household members: children Smoking Status: Former smoker Family & Social History Family History Brother Age: 70 Fam hx-ischem heart disease Diabetes mellitus Heart disease Brother Age: 61 Diabetes mellitus Heart disease Hepatitis C Kidney transplant status Father Fam hx-ischem heart disease Family history of prostate cancer Cancer Diabetes mellitus Heart disease Hypertension High cholesterol Mother Fam hx-ischem heart disease Family history of lymphoma Cancer Heart disease High cholesterol Grandmother Cancer Grandmother No problems noted. Grandfather Stroke Aneurysm Social History: household members children Prior Living Arrangements House Safety & Behavioral: Feels Safe in Current Yes Environment Been Physically Hurt or No Threatened By a Person Suicidal Ideation Description None Tobacco & Substance use: Smoking Status Former smoker alcohol intake frequency 0-2 drinks per day Substance Use Type marijuana Comment: The patient is currently living at home with her son who acts as her caregiver. Patient has failed home care since the last ER admission on 12/11/2018. Advanced directives: The patient has advanced directives on file and in direct conversation with the patient she wishes to be DO NOT RESUSCITATE. She designates her son be her surrogate decision maker. Meds Home Medications Medication Instructions Recorded Confirmed Type ASPIRIN (#ASPIR 81) 81 mg PO Q DAY #0 12/15/11 12/13/18 History VITAMIN D (Vitamin D3) 1,000 unit PO QDAY #0 01/07/12 11/22/18 History VITAMIN B COMPLEX ([id number]) 1 cap PO Q DAY #0 03/08/12 11/22/18 History Disabled Parking #1 each 04/29/18 11/22/18 Rx amlodipine 5 mg tablet 5 mg PO DAILY #90 tab 09/27/18 12/13/18 Rx lisinopril 40 mg tablet 40 mg PO DAILY #90 tab 09/27/18 12/13/18 Rx sorafenib 400 mg PO Q12H #60 tab 10/21/18 12/13/18 Rx oxycodone 5 mg PO Q4-6H PRN #30 ea 11/29/18 12/13/18 Rx prochlorperazine maleate 10 mg PO Q6-8H PRN 12/01/18 12/13/18 History [Compazine] oxycodone 5 mg PO Q4-6H PRN #100 ml 12/11/18 Rx polyethylene glycol 3350 8.5 g PO PRN PRN 12/13/18 12/13/18 History Allergies Allergy/AdvReac Type Severity Reaction Status Date / Time Penicillins [PENICILLINS] Allergy Intermediate RASH Verified 12/11/18 12:12 codeine [CODEINE] Allergy Mild ITCHY Verified 12/11/18 12:12 erythromycin base Allergy Mild Verified 12/11/18 12:12 [From ERYTHROCIN] latex [LATEX] Allergy Mild RED SULTANA, Verified 12/11/18 12:12 PAINFUL Sulfa (Sulfonamide Allergy Mild Verified 12/11/18 12:12 Antibiotics) [SULFA (SULFONAMIDE ANTIBIOTICS)] doxycycline AdvReac Intermediate Vomiting Verified 12/11/18 12:12 Review of Systems Review of Systems All systems reviewed & are unremarkable except as noted in HPI and below Exam Vital Signs (past 8 hours): - 12/12/18 23:38 12/13/18 01:49 Temperature 98.1 F 98.0 F Pulse Rate 83 69 Respiratory Rate 16 16 Blood Pressure 143/32 H 111/75 Pulse Oximetry 98 98 Oxygen Delivery Method Room Air Narrative Exam Narrative: GENERAL APPEARANCE: well developed, adequately nourished, BMI of 24.0, somnolent and mild pain HEAD: Asymmetric with right facial and mandibular swelling. EYES: pupils equal, round, reactive to light and accommodation, sclera slightly icteric, extraocular movement intact, no nystagmus appreciated. EARS: normal external structures, no ear pain NOSE: sinuses non tender to percussion, no rhinorrhea ORAL CAVITY: Limited mandibular motion, dysarthric, poor visualization oral cavity, poor dentition, mucous membranes moist, patient spitting up oral secretions. THROAT: Unable to visualize NECK/THYROID: Tenderness to palpation right anterior and lateral neck, localize d swelling without appearance of cellulitis, no jugular venous distention, trachea midline. LYMPH NODES: no palpable cervical or supraclavicular lymphadenopathy. SKIN: warm and dry, no pallor HEART: regular rate and rhythm, S1-S2 1/6 systolic murmur, no rubs or gallops, brisk capillary refill, no edema LUNGS: Breath sounds diminished bilaterally, clear to auscultation, no coarseness crackles or wheezing, no cough present CHEST: Symmetrical movement, low tidal volume, no accessory muscle use ABDOMEN: Soft, generalized pain to palpation no organo or splenomegaly appreciated no distention, hypoactive bowel tones. BACK: Normal curvature, nontender to palpation, abdominal pain with CVA percu ssion EXTREMITIES: moves all extremities, strength is 4/5 and symmetrical NEUROLOGIC: Patient is awake alert oriented to person place time and situation, GCS is 14 responding to verbal stimulus with eye opening, motor strength is diminished but symmetrical, sensory exam intact to light touch, hearing grossly normal to speech. PSYCH: Flat, withdrawn, somnolent Objective Labs Result Diagrams: 12/12/18 23:55 12/12/18 23:55 Labs: Laboratory Results - last 24 hr 12/12/18 12/12/18 23:55 23:55 WBC 5.5 RBC 3.83 L Hgb 12.4 Hct 36.3 MCV 94.8 MCH 32.5 MCHC 34.2 RDW 17.4 H Plt Count 151 Neut % (Auto) Not Reportable Lymph % (Auto) Not Reportable Atkinson % (Auto) Not Reportable Eos % (Auto) Not Reportable Baso % (Auto) Not Reportable Lymph # (Auto) Not Reportable Atkinson # (Auto) Not Reportable Baso # (Auto) Not Reportable Total Counted 100 Seg Neutrophils % 79.0 H Band Neutrophils % 3.0 Lymphocytes % (Manual) 11.0 L Monocytes % (Manual) 7.0 Neutrophils # (Manual) 4510 RBC Morphology See below Anisocytosis 1+ H Sodium 142 Potassium 5.2 H Chloride 108 H Carbon Dioxide 21 L BUN 44 H Creatinine 1.10 H Estimated GFR 49.8 L BUN/Creatinine Ratio 40.0 H Glucose 89 Calcium 11.4 H Assessment & Plan Assessment & Plan narrative: The patient admitted to the hospital for intractable nausea vomiting, inability to tolerate oral medications and acute dehydration. 1. Intractable nausea and vomiting, present on admission -patient takes Compazine at home for nausea, unclear if she has been using the medication. -patient received Zofran in the ER 2 days ago and again in the ER today -Zofran 4 mg IV every 6 hours as needed for nausea. -NPO diet 2. Acute dehydration, present on admission -patient seen in the ER on 12/11/2018 received 2 L of IV fluid and Zofran and discharged home in care of her son. -patient has returned 2 days later with continuing dehydration and received another L of fluid and other doses Zofran. -the patient has been unable to tolerate oral fluids and has a blood sugar of 89. -will infuse D5 normal saline at 100 cc/hour and re-evaluate. 3. Chronic Hypertension, stable -the patient has been taking lisinopril 40 mg and amlodipine 5 mg daily. -lisinopril was placed on hold during the ER visit on 12/11/2018 and will continue to be held. -will also hold amlodipine until such time as blood pressure improves with rehydration. 4. Chronic hepatocellular cancer with metastases, under treatment -patient complains of abdominal pain on palpation and right neck and mandibular pain. -patient has undergone radiation treatment for the mandibular bone metastasis and is currently taking sorafenib for ongoing chemotherapy treatment. -from labs drawn on 12/11/2018-total bilirubin 3.8, AST 225, AST 49, ALT 39, lipase 415. -hydromorphone 0.5 mg every 6 hours as needed for pain. -patient has been unable to tolerate her home pain medication of oxycodone. -speech therapy for swallow evaluation related to dysarthria. -will need to review plan of care with Oncology The patient admitted to the hospital due to severity of her symptoms and inability to remain hydrated. The patient is admitted as observation with expected length of stay to be less than 2 midnights. Quality VTE Deep Vein Thrombosis/Pulmonary Embolism Present on Admission: No
[2018-12-13] MEDS: DEXTROSE 5%-0.9% NS 1,000 ML 100 ML IV ×2 (02:30→11:52)
--- NOTE | 2018-12-13 03:56 | PC.NURSE ---
VENEER SUPERVISOR note: Patient needed me to lift her out of bed, to the BSC. Unable to even help herself get out of bed. Patient then told me (after I physically lifted her back into the bed after full rajesh care) I want to go to bed forever.
[2018-12-13 04:10] LABS: Appearance Urine UA SL CLOUDY; Bilirubin Urine UA NEGATIVE (NEGATIVE); Color Urine UA YELLOW; Glucose Urine UA NEGATIVE (Negative); Ketones Urine UA 1+ (NEGATIVE); Leukocyte Esterase Urine UA 1+ (NEGATIVE); Nitrite Urine UA POSITIVE (Negative); Occult Blood Urine UA TRACE-INTACT (Negative); Protein Urine UA TRACE (Negative); Urobilinogen Urine UA 0.2 E.U./dL (0.2)
[2018-12-13 04:11] LABS: Squamous Epithelial Cell Urine 0-1 /HPF (0-5/HPF); WBC Urine 10-30/HPF (0-5/HPF)
[2018-12-13 04:12] LABS: Bacteria Urine Many (>30); Culture Indicated Urine Specimen Cultured
[2018-12-13 07:16] LABS: Procalcitonin 1.14 ng/mL (<0.5)
[2018-12-13 07:40] LABS: BUN Creatinine Ratio 45.6 (6-22); Blood Urea Nitrogen 41 mg/dL (7-17); Calcium 10.5 mg/dL (8.4-10.2); Carbon Dioxide 18 mmol/L (22-32); Chloride 112 mmol/L (98-107); Estimated Glomerular Filt Rate > 60.0 mL/min (>60); Glucose 139 mg/dL (80-110); HEMOLYSIS < 15 (0-50); Magnesium 2.3 mg/dL (1.6-2.3); Phosphorous 2.4 mg/dL (2.8-4.1); Potassium 4.1 mmol/L (3.4-5.1); Sodium 140 mmol/L (137-145)
[2018-12-13 07:55] LABS: Alanine Aminotransferase 46 IU/L (9-52); Albumin 2.8 g/dL (3.5-5.0); Albumin Globulin Ratio 0.9 (1.0-2.8); Alkaline Phosphatase 80 U/L (38-126); Aspartate Aminotransferase 179 IU/L (14-36); Bilirubin Conjugated 0.9 md/dL (0.0-0.3); Bilirubin Total 3.8 mg/dL (0.2-1.3); Bilirubin Unconjugated 1.1 mg/dL (0.0-1.1); Globulin 3.2 g/dL (1.7-4.1); HEMOLYSIS < 15 (0-50)
[2018-12-13] MEDS: ENOXAPARIN 40 MG/0.4 ML SYRINGE SUBCUT (08:49)
[2018-12-13] MEDS: HYDROMORPHONE 1 MG INJ 0.5 MG IV (08:49)
--- NOTE | 2018-12-13 12:51 | ONC.MSW ---
Description: Care Coordination Activity: MILITARY NURSE received call update from Care Management that pt was admitted as inpt status yesterday from the ER. She presented with intractable nausea, inability to swallow, severe pain and drastic decline in overall physical functioning. MILITARY NURSE reviewed chart, went up to Acute Care to meet with pt, however she had just been medicated and was sleeping deeply. MILITARY NURSE notified Dr. Zelaya, Oncologist, of pt's change in status and need to be seen by him up on the floor. Care team is is agreement that pt's needs would be best served by hospice services moving forward. Dr. Zelaya will plan to visit pt at the end of his day today to discuss his agreement for pt to transition to comfort focused, end of life care. Plan: MILITARY NURSE will assist with any care planning needed to transition pt's care to hospice following hospital discharge. Pt is so debilitated that she may even pass in the hospital before a discharge can be arranged. Will work towards hospice as the primary plan.
--- NOTE | 2018-12-13 13:56 | SLP.IPNOTE ---
Order received for swallowing evaluation. Consulted nursing re: pt unable to swallow secondary to liver CA and metastasis. pt unable to swallow secretions. Given pt's dx and prognosis, do not feel that for swallowing evaluation is warranted at this time. See Oncology OFFICE TECHNOLOGIST note re; change to hospice status.
[2018-12-13] MEDS: SCOPOLAMINE 1 PATCH 2 PATCH TOP (14:09)
[2018-12-13] MEDS: MORPHINE 2 MG/ML INJ IV ×4 (14:09→22:28)
--- NOTE | 2018-12-13 14:23 | ONC.MSW ---
Description: DCP: Cont./Care Coordination Activity: This INSEAM LEVELER spoke extensively with pt's son re: the goals of care conversation that this INSEAM LEVELER and Hospitalist Dr. Hewitt had with pt. Explained the medical decision making re: the team's shift towards comfort care, which he was in complete agreement about. INSEAM LEVELER emphasized the limited life expectancy that both Dr. Hewitt and Dr. Zelaya anticipate for her, and that he would benefit from notifying family and anyone that he feels can be present to support him/pt for 24-hour caregiving in the home. Encouraged him to find pt's cremation plan paperwork, which he states is completed and filed somewhere at pt's house. He plans to call his aunt, pt's sister, to fly in and assist him with all of this care planning. He states that his employer is very understanding and will allow him to take off a few weeks in order to be present with pt in the home. INSEAM LEVELER offered grief support, as well as acknowledged that this process has accelerated so quickly over the last week that it has taken us all by surprise in terms of her decline. He was tearful, expressing that he thought that they had more time than this, however he now understands the urgency in completing last tasks and planning for end of life. INSEAM LEVELER also discussed hospice services and what to expect with in-home services, which is his preference as opposed to a SNF. INSEAM LEVELER also explained that Dr. Hewitt is working very hard now to get pt more comfortable, and that pt may be sleeping more, but more comfortable, which is what pt indicated to Dr. Hewitt and this INSEAM LEVELER as her goal for comfort. Plan: Will continue to work with Care Management/discharge planning to assist with care coordination needs re: pt's discharge home with hospice.
--- NOTE | 2018-12-13 14:43 | DIET.PN ---
Brief visit w/pt this morning. Sleeping; did not awakend. Per observation has evidence of clavicular wasting; face/jaw appear swollen which is confirmed by RN who reports cancer metastasized to jaw bone and face is very swollen. Since visit this am, REMOTE CODERS has completed evaluation and pt unable to swallow at all. Per RN, pt terminal, will start on Hospice. Intervention:None at this time.
--- NOTE | 2018-12-13 15:09 | CM.DANOTE ---
DCP/Assessment: Reviewed chart. Patient is a 63yr old female admitted to [facility] with intractable n/v. Patient with active h/o liver CA with mets. PCP listed is Dr. Chelo Weston. Primary payor is 1)[facility] Received referral for PAINT MIXER HAND consult from Dr. Hewitt. Placed call to Raeann at [facility]. She confirms that patient actively involved in care their with Dr. Zelaya. Raeann to notify Oncologist of patient's admit. Also requested that Dr. Zelaya call Dr. Hewitt re: goals of care. Raeann planning to come see patient/son today (see her notes for details). RN reports that patient has primarily been in pain. Patient unable to swallow due to mandibular bone mets. PAINT MIXER HAND attempted to meet with patient this AM, she was very sleepy and has difficulty speaking, currently unable to swallow. RN reports that she had just given her some pain medications. PAINT MIXER HAND requested that RN contact PAINT MIXER HAND when son/Rosas arrives. Spoke with Dr. Hewitt this afternoon and she reports that she has spoke with Dr. Zelaya, son, and patient about next steps. It was agreed by all that patient is appropriate for hospice. Patient and son in agreement. PAINT MIXER HAND met with son and patient (now self suctioning) to confirm plan. Patient and son confirm that they would just like to take patient home. PAINT MIXER HAND spoke again with Raeann from [facility]. She reports that she has notified [facility] [place]. PAINT MIXER HAND faxed clinical for review. At this time it is unclear when hospice can see this patient in the home. At this time they report that they are at capacity. P: PAINT MIXER HAND following closely and working with hospice and ONC/PAINT MIXER HAND Raeann to coordinate/finalize plan. HARRISON Russell
--- NOTE | 2018-12-13 16:58 | PM.CHAP ---
Good conversation with son. All other family members are in [place]. Assured son of indian blanket weaver's availability at any time. Interested in end of life blessing should she in hospital.
--- NOTE | 2018-12-13 17:01 | P.PN_ITS ---
Exam Vital Signs (past 8 hours): - 12/13/18 14:02 12/13/18 15:51 Temperature 97.5 F L 96.8 F L Pulse Rate 67 89 Respiratory Rate 16 12 Blood Pressure 148/73 H Pulse Oximetry 96 96 Oxygen Delivery Method Room Air Oxygen Flow Rate 0 Objective Labs Result Diagrams: 12/12/18 23:55 12/13/18 06:30 Labs: Laboratory Results - last 24 hr 12/12/18 12/12/18 12/13/18 23:55 23:55 03:50 WBC 5.5 RBC 3.83 L Hgb 12.4 Hct 36.3 MCV 94.8 MCH 32.5 MCHC 34.2 RDW 17.4 H Plt Count 151 Neut % (Auto) Not Reportable Lymph % (Auto) Not Reportable Porter % (Auto) Not Reportable Eos % (Auto) Not Reportable Baso % (Auto) Not Reportable Lymph # (Auto) Not Reportable Porter # (Auto) Not Reportable Baso # (Auto) Not Reportable Total Counted 100 Seg Neutrophils % 79.0 H Band Neutrophils % 3.0 Lymphocytes % (Manual) 11.0 L Monocytes % (Manual) 7.0 Neutrophils # (Manual) 4510 RBC Morphology See below Anisocytosis 1+ H Sodium 142 Potassium 5.2 H Chloride 108 H Carbon Dioxide 21 L BUN 44 H Creatinine 1.10 H Estimated GFR 49.8 L BUN/Creatinine Ratio 40.0 H Glucose 89 Calcium 11.4 H Phosphorus Magnesium Total Bilirubin Conjugated Bilirubin Unconjugated Bilirubin AST ALT Alkaline Phosphatase Total Protein Albumin Globulin Albumin/Globulin Ratio Procalcitonin Urine Color Yellow Urine Appearance Sl cloudy Urine pH 5.0 Ur Specific Dubois 1.020 Urine Protein Trace H Urine Glucose (UA) Negative Urine Ketones 1+ H Urine Occult Blood Trace-intact Urine Nitrate Positive H Urine Bilirubin Negative Urine Urobilinogen 0.2 Ur Leukocyte Esterase 1+ H Urine RBC Not Reportable Urine WBC 10-30/hpf H Ur Squamous Epith Cells 0-1 /hpf Urine Bacteria Many (>30) H Ur Culture Indicated? Specimen cultured 12/13/18 12/13/18 12/13/18 06:30 06:30 06:30 WBC RBC Hgb Hct MCV MCH MCHC RDW Plt Count Neut % (Auto) Lymph % (Auto) Porter % (Auto) Eos % (Auto) Baso % (Auto) Lymph # (Auto) Porter # (Auto) Baso # (Auto) Total Counted Seg Neutrophils % Band Neutrophils % Lymphocytes % (Manual) Monocytes % (Manual) Neutrophils # (Manual) RBC Morphology Anisocytosis Sodium 140 Potassium 4.1 Chloride 112 H Carbon Dioxide 18 L BUN 41 H Creatinine 0.90 Estimated GFR > 60.0 BUN/Creatinine Ratio 45.6 H Glucose 139 H Calcium 10.5 H Phosphorus 2.4 L Magnesium 2.3 Total Bilirubin 3.8 H Conjugated Bilirubin 0.9 H Unconjugated Bilirubin 1.1 AST 179 H ALT 46 Alkaline Phosphatase 80 Total Protein 6.0 L Albumin 2.8 L Globulin 3.2 Albumin/Globulin Ratio 0.9 L Procalcitonin 1.14 H Urine Color Urine Appearance Urine pH Ur Specific Dubois Urine Protein Urine Glucose (UA) Urine Ketones Urine Occult Blood Urine Nitrate Urine Bilirubin Urine Urobilinogen Ur Leukocyte Esterase Urine RBC Urine WBC Ur Squamous Epith Cells Urine Bacteria Ur Culture Indicated? Assessment & Plan Assessment & Plan narrative: Brief progress note: Patient seen and examined. Physical exam unchanged. Agree with admitting providers assessment and plan. In addition, speech therapy evaluated patient and patient is not able to swallow at all (solids or liquids) or talk. Undoubtedly the patient's metastatic jaw mass is invading her oropharynx. She is currently protecting her airway and her vital signs are stable. Discussed case with patient's oncologist Dr. Zelaya who plans to see patient later this afternoon and agrees that there is no other interventions to provide to the patient and she should be made comfort care only. The patient appears to be in excruciating pain and at this point in time the patient (through yes and no questions and writing) would like the main focus to be keeping her comfortable and in as little pain as possible. The plan is to implement hospice in the next 1-2 days either at home or another arrangement. Quality VTE Deep Vein Thrombosis/Pulmonary Embolism Present on Admission: No
[2018-12-13] MEDS: BENZOCAINE/MENTHOL 1 LOZ PKT 1 EACH PO (17:24)
--- NOTE | 2018-12-13 17:57 | PC.NURSE ---
Addendum entered by Carlota Pereyra R.N. 12/13/18 21:50: Dr Zelaya in room to consult. New order for IV steroids administered. NS infusing to IV right wrist as ordered. Patient restless, audible upper respiratory secretions, patient able to suction out some phlegm occasionally. RA oxygen 95%, she is not SOB or in obvious distress. Morphine 2 mg given for mouth and face pain 8/10, she is now dozing in bed. Son brought patient some personal toiletries. Son Rosas is now gone for the night, he requests that nursing call him overnight for any concerns or changes. Original Note: Evening note: Katie sleeping from 1500 until 1730, now awake, restless, rates right jaw pain 7/10, medicated with 1 mg Morphine IV per her request for 1/2 of dose. Pt audibly gurgly with upper airway secretions, unable to swallow own secretions, able to use [place] independent & with assist. New [place] tip placed. Oral care done, patient given small amt of water to swish & spit with, water just ran out of her mouth. Pt appears very frustrated & uncomfortable. Repositioned her to her right side. 10 min later patient requesting to sit in recliner. 2 person assist onto BSC, she voided small amt of bright orange urine. Buttocks redenned but no open areas. Transfered into recliner per patient request. She is able to bear weight and take baby steps/pivot transfer, she is very weak & fatigued. Son at her side. Awaiting Oncology consult, per day shift RN report Dr Zelaya is coming to talk to Katie & her son about prognosis/plan.
--- NOTE | 2018-12-13 19:20 | ONC.PN ---
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 Patient started taking sorafenib on November 08, 2018. Recently, she underwent palliative radiotherapy to the right mandibular metastatic lesion and completed on 12/15/2018. During that period of time, patient continued taking sorafenib onto 12/17/2018. Since then patient has stopped the oral medication because of severe pain when swallowing. She was even not able to drink fluids either. Patient reports no fever and no chills. Patient is complaining significant fatigue. She was not able to walk by herself according to the son. She was admitted to the hospital because of difficulty swallowing, drinking fluids, and significant fatigue as well as right mandible and oral pharynx pain. Home Medications and Allergies Home Medications Medication Instructions Recorded Confirmed Type ASPIRIN (#ASPIR 81) 81 mg PO Q DAY #0 12/15/11 12/13/18 History VITAMIN D (Vitamin D3) 1,000 unit PO QDAY #0 01/07/12 11/22/18 History VITAMIN B COMPLEX ([id number]) 1 cap PO Q DAY #0 03/08/12 11/22/18 History Disabled Parking #1 each 04/29/18 11/22/18 Rx amlodipine 5 mg tablet 5 mg PO DAILY #90 tab 09/27/18 12/13/18 Rx lisinopril 40 mg tablet 40 mg PO DAILY #90 tab 09/27/18 12/13/18 Rx sorafenib 400 mg PO Q12H #60 tab 10/21/18 12/13/18 Rx oxycodone 5 mg PO Q4-6H PRN #30 ea 11/29/18 12/13/18 Rx prochlorperazine maleate 10 mg PO Q6-8H PRN 12/01/18 12/13/18 History [Compazine] oxycodone 5 mg PO Q4-6H PRN #100 ml 12/11/18 Rx polyethylene glycol 3350 8.5 g PO PRN PRN 12/13/18 12/13/18 History Allergies Allergy/AdvReac Type Severity Reaction Status Date / Time Penicillins [PENICILLINS] Allergy Intermediate RASH Verified 12/11/18 12:12 codeine [CODEINE] Allergy Mild ITCHY Verified 12/11/18 12:12 erythromycin base Allergy Mild Verified 12/11/18 12:12 [From ERYTHROCIN] latex [LATEX] Allergy Mild RED SULTANA, Verified 12/11/18 12:12 PAINFUL Sulfa (Sulfonamide Allergy Mild Verified 12/11/18 12:12 Antibiotics) [SULFA (SULFONAMIDE ANTIBIOTICS)] doxycycline AdvReac Intermediate Vomiting Verified 12/11/18 12:12 Exam Vital signs: Vital Signs Temp Pulse Resp BP Pulse Ox 12/13/18 17:50 99 12/13/18 15:51 96.8 F L 89 12 96 12/13/18 14:02 97.5 F L 67 16 148/73 H 96 12/13/18 08:57 98.4 F 79 16 142/77 H 97 12/13/18 08:15 97 12/13/18 05:58 98.5 F 74 18 137/69 97 12/13/18 01:49 98.0 F 69 16 111/75 98 12/12/18 23:38 98.1 F 83 16 143/32 H 98 Intake and Output 12/13/18 12/13/18 12/13/18 07:59 15:59 23:59 Intake Total 1000 / 1936.667 936.667 / 1936.667 Output Total 100 / 375 200 / 375 75 / 375 Balance 900 / 1561.667 736.667 / 1561.667 -75 / 1561.667 Intake: IV 1000 / 1936.667 936.667 / 1936.667 Dextrose 5%-0.9% Ns 1,000 ml @ 936.667 / 936.667 100 mls/hr IV CONT MASSIMO Rx#: [id number] Sodium Chloride 0.9% 1,000 ml @ 1000 / 1000 1000 mls/hr IV BOLUS ONE Rx#: [id number] Output: Urine 100 / 375 200 / 375 75 / 375 Other: Weight 64 kg Patient Weight 12/13/18 23:59 Weight 64 kg ECOG 3 Narrative: Constitutional: Well developed, weak, pale, NAD, son by the bedside. HEENT: EOMI, icteric sclera. Right jaw area is swollen and tenderness. No erythema. Neck: Supple, symmetrical; No palpable thyromegaly and no palpable lymph nodes. Respiratory: No use of accessory muscles. Clear to auscultation, and no wheezes or rales or rubs. Cardiovascular: RRR, S1 and S2 normal, no murmurs gallops or rubs. No JVD. No pitting edema of lower extremities. Abdomen: Soft, non-distended, Mild tender over right upper abdomen. Lower extremities: No palpable pedal edema. Neurological: Awake and alert and oriented x3. CN II-XII grossly intact. No focal motor or sensory deficit. Results - Labs Laboratory Last Values WBC 5.5 X10^3/uL (4.5-11.0) 12/12/18 23:55 RBC 3.83 X10^6/uL (4.0-5.2) L 12/12/18 23:55 Hgb 12.4 g/dL (12.0-16.0) 12/12/18 23:55 Hct 36.3 % (36-46) 12/12/18 23:55 MCV 94.8 fL (80-100) 12/12/18 23:55 MCH 32.5 PG (26-34) 12/12/18 23:55 MCHC 34.2 % (30-36) 12/12/18 23:55 RDW 17.4 % (11.6-14.8) H 12/12/18 23:55 Plt Count 151 X10^3/uL (150-400) 12/12/18 23:55 Neut % (Auto) Not Reportable 12/12/18 23:55 Lymph % (Auto) Not Reportable 12/12/18 23:55 [place] % (Auto) Not Reportable 12/12/18 23:55 Eos % (Auto) Not Reportable 12/12/18 23:55 Baso % (Auto) Not Reportable 12/12/18 23:55 Lymph # (Auto) Not Reportable 12/12/18 23:55 [place] # (Auto) Not Reportable 12/12/18 23:55 Baso # (Auto) Not Reportable 12/12/18 23:55 Total Counted 100 12/12/18 23:55 Seg Neutrophils % 79.0 % (38-70) H 12/12/18 23:55 Band Neutrophils % 3.0 % (3-7) 12/12/18 23:55 Lymphocytes % (Manual) 11.0 % (25-45) L 12/12/18 23:55 Monocytes % (Manual) 7.0 % (2-11) 12/12/18 23:55 Neutrophils # (Manual) 4510 /uL (8254-2492) 12/12/18 23:55 RBC Morphology See below 12/12/18 23:55 Anisocytosis 1+ H 12/12/18 23:55 Sodium 140 mmol/L (137-145) 12/13/18 06:30 Potassium 4.1 mmol/L (3.4-5.1) 12/13/18 06:30 Chloride 112 mmol/L (98-107) H 12/13/18 06:30 Carbon Dioxide 18 mmol/L (22-32) L 12/13/18 06:30 BUN 41 mg/dL (7-17) H 12/13/18 06:30 Creatinine 0.90 mg/dL (0.52-1.04) 12/13/18 06:30 Estimated GFR > 60.0 mL/min (>60) 12/13/18 06:30 BUN/Creatinine Ratio 45.6 (6-22) H 12/13/18 06:30 Glucose 139 mg/dL (80-110) H 12/13/18 06:30 Calcium 10.5 mg/dL (8.4-10.2) H 12/13/18 06:30 Phosphorus 2.4 mg/dL (2.8-4.1) L 12/13/18 06:30 Magnesium 2.3 mg/dL (1.6-2.3) 12/13/18 06:30 Total Bilirubin 3.8 mg/dL (0.2-1.3) H 12/13/18 06:30 Conjugated Bilirubin 0.9 md/dL (0.0-0.3) H 12/13/18 06:30 Unconjugated Bilirubin 1.1 mg/dL (0.0-1.1) 12/13/18 06:30 AST 179 IU/L (14-36) H 12/13/18 06:30 ALT 46 IU/L (9-52) 12/13/18 06:30 Alkaline Phosphatase 80 U/L (38-126) 12/13/18 06:30 Total Protein 6.0 g/dL (6.3-8.2) L 12/13/18 06:30 Albumin 2.8 g/dL (3.5-5.0) L 12/13/18 06:30 Globulin 3.2 g/dL (1.7-4.1) 12/13/18 06:30 Albumin/Globulin Ratio 0.9 (1.0-2.8) L 12/13/18 06:30 Procalcitonin 1.14 ng/mL (<0.5) H 12/13/18 06:30 Urine Color Yellow 12/13/18 03:50 Urine Appearance Sl cloudy 12/13/18 03:50 Urine pH 5.0 (4.5-8.0) 12/13/18 03:50 Ur Specific [place] 1.020 (1.000-1.035) 12/13/18 03:50 Urine Protein Trace (Negative) H 12/13/18 03:50 Urine Glucose (UA) Negative g/dL (Negative) 12/13/18 03:50 Urine Ketones 1+ (NEGATIVE) H 12/13/18 03:50 Urine Occult Blood Trace-intact (Negative) 12/13/18 03:50 Urine Nitrate Positive (Negative) H 12/13/18 03:50 Urine Bilirubin Negative (NEGATIVE) 12/13/18 03:50 Urine Urobilinogen 0.2 E.U./dL (0.2) 12/13/18 03:50 Ur Leukocyte Esterase 1+ (NEGATIVE) H 12/13/18 03:50 Urine RBC Not Reportable 12/13/18 03:50 Urine WBC 10-30/hpf (0-5/HPF) H 12/13/18 03:50 Ur Squamous Epith Cells 0-1 /hpf (0-5/HPF) 12/13/18 03:50 Urine Bacteria Many (>30) (None) H 12/13/18 03:50 Ur Culture Indicated? Specimen cultured 12/13/18 03:50 - Imaging Additional studies: Procedures Injection or infusion of other therapeutic or prophylactic substance (07/25/11) Assessment and Plan (1) Hepatocellular carcinoma 63 year old with advanced hepatocellular carcinoma with metastasis to multiple skeletal sites. Clinically the most prominent is the right mandible destructive lesion which was recently irradiated. She is also on tyrosine kinase inhibitor sorafenib on 11/08/2018. She was admitted to the hospital because of difficulty swallowing and drinking fluids with associated severe right jaw pain and oropharynx pain. She has a very poor performance status with ECOG of about 3. I talked with the patient and the patient's son. I first pointed out that she has an extensive metastatic hepatocellular carcinoma which is considered incurable. All the treatment modalities are palliative towards the goal of prolonging her life while at the same time maintaining good quality of time as much as we can. Patient at present is experiencing symptoms stemming from the destructive mandible lesion as well as radiation associated oral mucositis (grade 3). From a palliative point of view, I think the intravenous fluids, steroids for example dexamethasone 12 mg Q12H may be of some help in terms of alleviating the inflammation and symptoms. I completely agree with generous pain control with narcotics. I also mentioned other supportive measures including PEG tube for nutrition and fluids. It is also possible that she may need trachea tube if the airway is compromised by the inflammation/invasive tumor. Patient repeatedly expressed her decision that she does not want any invasive procedures. I talked with her that the prognosis is guarded, and hospice care is an appropriate option. I talked with her that I fully support whatever she decides.
[2018-12-13] MEDS: SODIUM CHLORIDE 0.9% 1,000 ML 100 ML IV (20:05)
[2018-12-13] MEDS: DEXAMETHASONE 12 MG in SODIUM CHLORIDE 0.9% 50 ML 106 ML IV (20:05)
[2018-12-14] VITALS (7 sets, daily range): PULSE 77; RESP 8–16; TEMP 36.1–36.3; O2SAT 94–98
--- NOTE | 2018-12-14 00:25 | PC.NURSE ---
2300- Pt admit for naus/vomiting/difficulty swallowing; comfort care measures added today. Pt is NPO w/ yanker suction in place to help w/ secretions. 0050- IV Morphine given for pain. Pt cont to suction her own secretions; qshift vitals checked pt refused BP check. BA remains on. 0430- New order for IV Dilaudid as IV Morphine isn't adequate to cont pt's discomfort. Will cont to monitor.
[2018-12-14] MEDS: MORPHINE 2 MG/ML INJ IV ×2 (00:47→03:46)
[2018-12-14] MEDS: HYDROMORPHONE 0.5 MG INJ IV (04:28)
[2018-12-14] MEDS: SODIUM CHLORIDE 0.9% 1,000 ML 100 ML IV (06:04)
[2018-12-14] MEDS: MORPHINE 2 MG/ML INJ 4 MG IV (08:19)
[2018-12-14] MEDS: DEXAMETHASONE 12 MG in SODIUM CHLORIDE 0.9% 50 ML 106 ML IV ×2 (08:23→21:40)
[2018-12-14] MEDS: MORPHINE 4 MG/ML INJ IV ×4 (10:06→23:51)
--- NOTE | 2018-12-14 10:13 | SLP.IPNOTE ---
Order received for swallow evaluation. Pt is unable to participate. She is unable to swallow secretions and has Ven[place] at bedside for suction. Pt is now comfort care. ST will discharge at this time.
--- NOTE | 2018-12-14 14:23 | PM.PN.1 ---
Subjective Date Patient Seen: 12/14/18 Interval history: The patient is resting and appears comfortable and is easily arousable. Despite this she is not speaking. She does shake her head that she continues to have pain. But she notes the pain has improved. Exam Vital Signs (past 8 hours): - 12/14/18 08:00 12/14/18 09:30 12/14/18 12:43 Temperature Respiratory Rate 14 8 L Pulse Oximetry 98 12/14/18 13:03 Temperature 97.0 F L Respiratory Rate 13 Pulse Oximetry Oxygen Delivery Method Room Air Oxygen Flow Rate 0 Narrative Exam Narrative: Ill appearing female HEENT: Right face and jaw edematous swollen significant Lungs: Decreased breath sounds Cardiac exam: Regular rate and rhythm normal S1-S2 Abdomen: Soft and nontender Extremities: No edema Objective Labs Result Diagrams: 12/12/18 23:55 12/13/18 06:30 Assessment & Plan (1) Essential hypertension: Problem details: Chronic, present on admission, will continue usual home medication Current visit: Yes Status: Chronic (2) Dehydration: Problem details: Will continue IV hydration. Patient is unable to eat at this time. She will be transitioned to comfort measures. The patient will discharge home tomorrow with hospice. Current visit: Yes Status: Acute (3) Protein calorie malnutrition: Problem details: Protein calorie malnutrition, present on admission, moderate to severe. Patient is unable to eat given her metastatic disease. She will be transitioned to comfort care with hospice at discharge tomorrow. Current visit: Yes Status: Acute (4) Metastatic hepatocellular carcinoma to bone: Problem details: Metastatic hepatocellular carcinoma to the jaw. Prednisone and pain medication appear to be helping. Will continue current regimen. Current visit: Yes Status: Acute Assessment & Plan narrative: Anticipated discharge home with hospice tomorrow. Quality VTE Deep Vein Thrombosis/Pulmonary Embolism Present on Admission: No
--- NOTE | 2018-12-14 14:28 | CM.DPC ---
DCP/continued: Reviewed chart. Received call from Larry at hospice. She reports that they can see patient in the home tomorrow 12-15-18 at 2:00pm. Notified Dr. Kraus and she will plan to discharge patient home with hospice tomorrow. Placed call to patient's son/Rosas to confirm plan. Son reports that he is meeting with hospice today to sign consents. Son in agreement with plan. Son reiterates that patient wants to come home. Larry at [facility] aware that patient will need DME delivered prior to patient's discharge. Larry indicates that DME scheduled to be delivered before noon on 12-15-18. Larry also aware that bedside suction machine needed. Medical necessity for non-urgent BLS transport completed and signed by /Dr. Kraus. RN/Tova updated with above plan. P: Home tomorrow with hospice to see at the residence around 2:00pm. YESI/Petra aware that patient will need BLS arranged in AM. Will leave in handoff for Tova TERRY. HARRISON Russell
--- NOTE | 2018-12-14 18:24 | PC.NURSE ---
Evening notes: Katie mostly sleeping tonight, does wake easily to voice, when she is awake she begins clearing throat, unable to clear, upper airway coarse at times. She is nonverbal but able to express needs by nodding head and hand gestures. RA oxygen maintaining 97%, respirations 10/minute and regular while asleep. She does not appear SOB nor does she appear in any distress tonight. Able to use yankauer independently to remove some phlegm from throat. Tip of yankauer observed with scant blood, yankauer cleaned. Moist swabs given. When asked if having mouth/jaw pain she nods yes. When asked if she wants Morphine for the pain she immediately nods yes. I medicated her with Morphine 4 mg upon start of my shift. Comfort care. Son here intermittently, very interactive with Katie's care, he is very attentive to her needs. He is gone from room now, saying he is going to get things ready for tomorrow as the plan is for Katie to DC home under Hospice care.
[2018-12-14] MEDS: SODIUM CHLORIDE 0.9% FLUSH 10 ML IV (21:40)
[2018-12-15 00:26] VITALS: PULSE 77; RESP 18; O2SAT 98
[2018-12-15 01:20] VITALS: O2SAT 98
[2018-12-15] MEDS: MORPHINE 4 MG/ML INJ IV ×4 (03:07→09:06)
--- NOTE | 2018-12-15 06:29 | PC.NURSE ---
Pt able to nod yest or no for needs. Pt able to say if she has pain based on verbal cues. Pt is having a hard time clearing secretions, using yankauer when needed. I have given her moist swabs through the night. RA oxygen at 98%, Resp 18. Pt is in need of Morphine Q2 for pain. Discharging home for hospice at 1pm.
[2018-12-15 08:15] VITALS: O2SAT 98
[2018-12-15] MEDS: DEXAMETHASONE 12 MG in SODIUM CHLORIDE 0.9% 50 ML 106 ML IV (08:15)
[2018-12-15] MEDS: SODIUM CHLORIDE 0.9% FLUSH 10 ML IV (08:15)
--- NOTE | 2018-12-15 09:05 | ONC.MSW ---
DCP: Cont. ONC Care Coordination FILM LIBRARY CLERK met with son to check-in on coping and support needs prior to pt's d/c later today. He shared that he is scared, but that he has several family members all coming to help him with her care. Hospice will be waiting for her at the home upon her arrival, and will assume all care. DME is being delivered before noon today. Pt was only slightly alert, however rapidly became very distressed as she was choking on her secretions and could no longer utilize the hand suction on her own. Son was having difficulty as well. FILM LIBRARY CLERK alerted her nurse, who has been taking excellent care of pt's comfort and pain needs throughout this hospitalization. FILM LIBRARY CLERK explained to son that HARRISON Bernardo will continue to work with him this morning as pt prepares for d/c home.
--- NOTE | 2018-12-15 13:24 | PC.NURSE ---
Discharge Hospice to admit pt on arrival back home. Son at house this AM to receive DME which was delivered. Hospice stated pain meds would not be available for her at admit so Dr Kraus aware and 2 day supply of morphine provided to pt per hospice request. Rx sent to [facility] and Pt's son picked up morphine and scope patches to have at home for pt. Son says he has family members and friends available to help him care for his mother. D/c instructions went over with son throughout shift and hospice to admit on pt's arrival at home. Son took all pt's belongings home with him. offered pt morphine prior to d/c for transport home, pt declined. She appeared comfortable with transfer to [facility]. left with S transport.
--- NOTE | 2018-12-15 14:58 | CM.DPNOTE ---
DC Note: Coordinated final details of this DCP w/ assistance from CÉSAR Bernardo, Bench Worker Hollow Handle Petra, and Daksha at Hospice ([facility]). IMM reviewed w/son, ralf Pillai remains aware and agreeable to DCP. Verbal agreement obtained. P: DC home via BLS (p/u at 1300), DME delivered today, w/Hospice f/u at 1400. Ralf Pillai P# [phone] to p/u 2 day supply of Morphine, Ativan, and Scop patch at [facility]. Daksha at [facility] updated, no DC Summary available as of 1500. Connie Gr MSW
--- NOTE | 2018-12-16 12:50 | PM.DS.1 ---
History of Present Illness Date Patient Seen: 12/15/18 Chief complaint: Possible Stroke Narrative: Katie Rucker is a 63-year-old female with a complex medical history significant for hepatocellular liver cancer with metastases to the right mandible, hypertension, hepatitis C, cirrhosis, peripheral artery disease, and intracranial aneurysm status post surgery who presents to the emergency room for the 2nd time in 2 days for intractable nausea vomiting. The patient was seen on 12/11/2018 with the patient was evaluated and treated for dehydration and acute kidney injury receiving 2 L of IV fluid and Zofran and discharged home in the care of her son. Her son acts as her regular caregiver helping with ADLs and meals. His reported the patient has not gotten out of bed for the last 2 days due to weakness. The patient has recently undergone radiation therapy of the right mandible for metastatic lesions which she indicates is completed. The patient is somewhat somnolent but complains of weakness and pain most prominent in the right jaw and neck and abdomen. She has been able to keep any food, fluids or medications down. She is currently receiving chemotherapy with Sorafenib. Patient denies chest pain or palpitations but does report shortness of breath but denies cough. She has increased secretions which he spits up regularly. She has generalized abdominal pain which he reports as unchanged from typical. She is unable to tell me when her last bowel movement. In the ER the patient is found to be afebrile with a temperature 98.1?, heart rate of 83 and blood pressure of 143/32, respirations 16 and oxygen saturation 98% on room air. In the ER the patient received an additional L of normal saline, Zofran and hydromorphone 0.5 mg. Labs were drawn the patient has a white count of 5.5 with hemoglobin of 12.4 and hematocrit 36.3 with platelets 131. On chemistry shows a sodium 142 and an elevated potassium at 5 2. She has markedly elevated BUN creatinine ratio with BUN of 44 and creatinine 1.1, notably her baseline creatinine is 0.8. Her nonfasting glucose is 89 mg per dL. On CMP drawn on the 1st patient had a total bili of 3.8, AST of 225, ALT 49 and alkaline phosphatase of 39, her lipase is 415. . Her coags have been within normal range. Patient is somewhat somnolent and dehydrated and is admitted for rehydration and management of intractable nausea and vomiting. Discharge Providers Date of admission: 12/13/18 01:05 Discharge Date: 12/15/18 Primary care physician: Chelo Weston MD Consults: 12/13/18 02:06 Consult to Dietitian, Adult Routine Comment: Reason For Exam: metastatic cancer, intractable N/V 12/13/18 02:07 Consult to Discharge Planning Routine Comment: Consult to Forklift Mechanic Routine Comment: Goals of care 12/13/18 02:09 Consult to Speech Therapy Evaluate & Treat Comment: Metastatic cancer to mandible, S/P radiation Physician Instructions: Evaluate and treat 12/13/18 02:10 Consult to Dietitian, Adult Routine Comment: Reason For Exam: n/v recent wt loss Discharge provider: Milagro Kraus MD Summary Discharge Diagnosis: 1. Metastatic hepatocellular carcinoma 2. Hepatocellular carcinoma (Chronic) Essential hypertension (Chronic 09/01/13) Mixed hyperlipidemia (Chronic 10/02/15) H/O migraine (Chronic) Chronic hepatitis C virus infection (Chronic 09/16/11) History of subarachnoid hemorrhage (Inactive 09/16/11) Anemia (Chronic) Anxiety (Chronic) Asthma (Chronic) Chronic cough (Chronic) Chronic headaches (Chronic) Cirrhosis (Chronic 2000) Depression (Chronic) Hayfever (Chronic) Hemorrhoids (Chronic) Hepatitis C (Chronic) History of recurrent ear infection (Chronic) Hypertension (Chronic) Liver disease (Chronic) Ocular migraine (Chronic) PTSD (post-traumatic stress disorder) (Chronic) Peripheral vascular disease (Chronic) Recurrent sinusitis (Chronic) Substance abuse (Chronic) Urinary incontinence (Chronic) Vertigo (Chronic) Aneurysm (Resolved 2011) Chicken pox (Resolved) Genital warts (Resolved) History of heavy periods (Resolved) Measles (Resolved) Mumps (Resolved) Painful menstrual periods (Resolved) SAH (subarachnoid hemorrhage) (Resolved 2011) Hospital Course: Patient was admitted to the hospital for intractable pain secondary to metastatic hepatocellular carcinoma to the right jaw. She received pain medication. Ultimately received IV steroid to help with her pain. She had difficulty eating. Was significantly uncomfortable. Patient was seen by her oncologist who concurred with the plan for comfort measures. Hospice consultation was obtained and arrangements were made for her to be discharged home on hospice. Patient was significantly uncomfortable during her hospital stay. She did not complain of shortness of breath although she had some difficulty but mostly was sleeping her son and her or admitted to hospice and she was discharged home for comfort measures. Status at Discharge Cognitive/behavioral status at discharge: confused Functional status at discharge: uses cane/walker Overall status at discharge: patient is not back to baseline Time Spent with Patient Less than 30 minutes Exam Vital Signs (past 8 hours): Oxygen Delivery Method Room Air Oxygen Flow Rate 0 Narrative Exam Narrative: Ill-appearing female HEENT: Right jaw with significant swelling significant pain noted Lungs: Decreased breath sounds bilateral Cardiac exam: Regular rate and rhythm normal S1-S2 Abdomen: Soft nontender nondistended Objective Labs Result Diagrams: 12/12/18 23:55 12/13/18 06:30 Discharge Plan Discharge Plan Patient Disposition: Hospice - Home Discharge Med Rec/Prescriptions Prescriptions: New scopolamine base [Transderm-Scop] 1 mg over 3 days Patch 3 Day 2 patch topical Q72H 7 Days RF: 0 lorazepam [Ativan] 2 mg/mL solution 2 mg SL BID-TID PRN (Reason: anxiety) 7 Days RF: 0 morphine concentrate 10 mg/0.5 mL syringe 30 mg PO Q6H 5 Days RF: 0 morphine concentrate 10 mg/0.5 mL syringe 30 mg PO Q6H 5 Days RF: 0 morphine concentrate 10 mg/0.5 mL syringe 30 mg PO .q2 hours 5 Days RF: 0 Discontinued ASPIRIN (#ASPIR 81) 81 mg PO Q DAY Qty: 0 RF: 0 VITAMIN D (Vitamin D3) 1,000 unit PO QDAY Qty: 0 RF: 0 VITAMIN B COMPLEX ([id number]) 1 cap PO Q DAY Qty: 0 RF: 0 amlodipine 5 mg tablet 5 mg PO DAILY Qty: 90 RF: 3 lisinopril 40 mg tablet 40 mg PO DAILY Qty: 90 RF: 3 sorafenib 200 mg Tablet 400 mg PO Q12H Qty: 60 RF: 11 oxycodone 5 mg Tablet, Oral Only 5 mg PO Q4-6H PRN (Reason: pain, liver cancer) Qty: 30 RF: 0 prochlorperazine maleate [Compazine] 10 mg Tablet 10 mg PO Q6-8H PRN (Reason: Nausea And Vomiting) RF: 0 oxycodone 5 mg/5 mL solution 5 mg PO Q4-6H PRN (Reason: pain) Qty: 100 RF: 0 polyethylene glycol 3350 8.5 g PO PRN PRN (Reason: Constipation) RF: 0 No Action Disabled Parking Qty: 1 RF: 0 Follow up/Referrals: Chelo Weston MD [Primary Care Provider] - (appt:12/22 @ 10:[address] salamanca [phone] ) Provider Discharge Instructions Diet: Diet as Tolerated Activity: as tolerated Visit Report/Discharge Packet Instructions: End of Life Care Discharge Data Primary Care Provider: Chelo Weston Attending Provider: Jose Perez Admit Date/Time: 12/13/18 01:05 Discharges patient from system. Discharge Date/Time: 12/15/18 13:20 Quality VTE Deep Vein Thrombosis/Pulmonary Embolism Present on Admission: No
== END 2018-12-15 13:20 | disposition hospice, home (50) | DRG 543 ==
LOC: ED 12-13 01:04 → AC 12-13 01:06
PROVIDERS: Admitting Provider Internal Medicine; Emergency Provider Emergency Medicine; PCP Internal Medicine; Visit Provider Nurse Practitioner Adult Health
DX: C79.51 Secondary malignant neoplasm of bone (principal); C22.8 Malignant neoplasm of liver, primary, unspecified as to type; B19.20 Unspecified viral hepatitis C without hepatic coma; R62.7 Adult failure to thrive; E86.0 Dehydration; R11.2 Nausea with vomiting, unspecified; K74.60 Unspecified cirrhosis of liver; R13.10 Dysphagia, unspecified; G89.3 Neoplasm related pain (acute) (chronic)
CPT/HCPCS: 36415; 36591; 80048; 80076; 81001; 83735; 84100; 84145; 85025; 87077; 87086; 87186; 96361; 96374; 96375; 99214; 99232; 99283; J1100; J1170; J1650; J2270; J2405